=== PATIENT | male | born 1940 | race Caucasian/White ===

== ENCOUNTER 2017-02-20 09:14 | Inpatient (IN) | payer MEDICARE, OTHER ==
[2017-02-20 09:19] VITALS: BMI 25.4
[2017-02-20] MEDS ORDERED: Sodium Chloride 0.9% 1,000 ML IV STA (09:46)
[2017-02-20] MEDS ORDERED: Sodium Chloride 0.9% 1,000 ML ONE (10:00)
[2017-02-20 10:14] LABS: BASO # 0.1 K/uL (0.0-0.2); BASO % 1.5 % (0.0-2.0); EOS % 0.3 % (0.0-4.0); HEMATOCRIT 47.7 % (35.0-51.0); LYMPH # 0.6 K/uL (1.0-4.3); LYMPH % 8.4 % (20.0-40.0); MEAN CELL VOLUME 93.3 fL (80.0-94.0); MEAN CORPUSCULAR HEMOGLOBIN 32.1 pg (27.0-31.0); MEAN CORPUSCULAR HGB CONC 34.4 g/dL (33.0-37.0); MEAN PLATELET VOLUME 10.2 fL (7.2-11.7); MONO # 1.5 K/uL (0.0-0.8); MONO % 19.8 % (0.0-10.0); PLATELET COUNT 178 K/uL (130-400); RED CELL DISTRIBUTION WIDTH 14.2 % (11.5-14.5); WHITE BLOOD COUNT 7.5 K/uL (4.8-10.8)
[2017-02-20 10:24] LABS: INR 1.1
[2017-02-20 10:57] LABS: EOSINOPHIL 1 % (0-4); NEUTROPHIL 56 % (50-75); TOTAL CELLS COUNTED 100
[2017-02-20 11:06] LABS: CHLORIDE 85 mmol/L (98-107); POTASSIUM 2.7 mmol/L (3.6-5.2); SODIUM 132 mmol/L (132-148)
[2017-02-20 11:08] LABS: GFR AFRICAN-AMERICAN 25
[2017-02-20 11:09] LABS: ALB/GLOB RATIO 1.3 (1.0-2.1); ALKALINE PHOSPHATASE 73 U/L (38-126); ALT/SGPT 40 U/L (21-72); AST/SGOT 49 U/L (17-59); BILIRUBIN,TOTAL 1.1 mg/dL (0.2-1.3); CALCIUM 8.9 mg/dl (8.6-10.4); CARBON DIOXIDE 30 mmol/L (22-30); GLUCOSE,RANDOM 145 mg/dL (75-110); TOTAL PROTEIN 7.7 g/dL (6.3-8.3)
[2017-02-20 11:41] LABS: RBC URINE 1 /hpf (0-3); URINE BILIRUBIN NEGATIVE (NEGATIVE); URINE BLOOD NEGATIVE (NEGATIVE); URINE COLOR Yellow (YELLOW); URINE GLUCOSE (UA) NORMAL (Normal); URINE KETONE TRACE mg/dL (NEGATIVE); URINE LEUKOCYTE ESTERASE NEG Leu/uL (Negative); URINE PROTEIN 1+ mg/dL (NEGATIVE); URINE UROBILINOGEN NORMAL mg/dL (0.2-1.0); WBC URINE 1 /hpf (0-5)
[2017-02-20] MEDS ORDERED: Potassium Chloride 20 mEq/15 ml LIQ UD PO STA (11:42)
[2017-02-20 11:47] LABS: BLOOD UREA NITROGEN 107 mg/dL (9-20)
[2017-02-20 11:55] LABS: URINE BACTERIA OCC (<OCC)
[2017-02-20] MEDS ORDERED: Potassium Chloride 20 mEq/15 ml LIQ UD ONE (11:55)
--- NOTE | 2017-02-20 12:22 | C.PDOC ---
History Of Present Illness 77-year-old male, PMHx includes Hypertension and Hypercholesterolemia, presents to the emergency department with complaints of vomiting, loss of appetite and abdominal pain that started a 5 days ago. Daughter reports patients last bowel movement was three days ago, and he is having intermittent non-bloody/non- bilious vomiting for the past five days. Denies fevers, chills, shortness of breath, chest pain, or any other associated symptoms. No other complaints at this time. PMD Kenyetta Cole MD. Time Seen by Provider: 02/20/17 09:30 Chief Complaint (Nursing): Abdominal Pain History Per: Patient History/Exam Limitations: no limitations Past Medical History Reviewed: Historical Data, Nursing Documentation, Vital Signs Vital Signs: Last Vital Signs Temp 98.2 F 02/20/17 16:19 Pulse 98 H 02/20/17 17:45 Resp 18 02/20/17 17:45 BP 131/83 02/20/17 17:45 Pulse Ox 100 02/20/17 17:45 - Medical History PMH: Fractures (LEFT UPPER LEG/HIP FRACTURE-FROM FALL OFF LADDER), HTN, Hypercholesterolemia Denies: Chronic Kidney Disease - [facility] Procedures CATARAC PHACOEMULS/ASPIR (01/02/15) INSERT LENS AT CATAR EXT (01/02/15) Family History: States: No Known Family Hx - Social History Hx Alcohol Use: No Hx Substance Use: No - Immunization History Hx Tetanus Toxoid Vaccination: No Hx Influenza Vaccination: Yes Hx Pneumococcal Vaccination: No Review Of Systems Except As Marked, All Systems Reviewed And Found Negative. Constitutional: Negative for: Fever, Chills Cardiovascular: Negative for: Chest Pain Respiratory: Negative for: Cough, Shortness of Breath Gastrointestinal: Positive for: Nausea, Vomiting, Abdominal Pain, Constipation Musculoskeletal: Negative for: Back Pain Skin: Negative for: Rash Neurological: Negative for: Weakness, Numbness, Headache, Dizziness Physical Exam - Physical Exam Appears: Toxic, No Acute Distress, Other (uncomfortable) Skin: Warm, Dry, Pale, No Rash Head: Atraumatic, Normacephalic Eye(s): bilateral: Normal Inspection, PERRL Nose: Normal Oral Mucosa: Moist Lips: Normal Appearing Neck: Normal ROM Cardiovascular: Rhythm Regular, No Murmur Respiratory: Normal Breath Sounds, No Accessory Muscle Use Gastrointestinal/Abdominal: Soft, No Tenderness Extremity: Normal ROM Neurological/Psych: Oriented x3, Normal Speech, Normal Cognition ED Course And Treatment - Laboratory Results Result Diagrams: 02/20/17 10:07 02/20/17 10:55 O2 Sat by Pulse Oximetry: 96 - Other Rad CXR X-Ray: Viewed By Me, Read By Radiologist Interpretation: Accession No. : [id number]. Patient Name / ID : LORENZA ESCALANTE / [id number]. Exam Date : 02/20/2017 09:49:55 ( Approved ). Study Comment : Sex / Age : M / 77Y. Creator : Artem Mcclain MD. Dictator : Artem Mcclain MD. Roofing Supervisor : Electric Meter Installer Helper : Artem Mcclain MD. Approver2 : Report Date : 02/20/2017 12:34:04. My Comment : . PROCEDURE: CHEST RADIOGRAPH, 1 VIEW. Technique: Single view portable semi erect @ 09: 50. HISTORY: vomiting. COMPARISON: 12/24/2014. FINDINGS: LUNGS: Clear. PLEURA: No pneumothorax or pleural fluid seen. CARDIOVASCULAR: No radiographic findings to suggest acute or significant cardiovascular disease. OSSEOUS STRUCTURES: No significant abnormalities. VISUALIZED UPPER ABDOMEN: Normal. OTHER FINDINGS: None. IMPRESSION: No active disease. No acute/ significant interval changes. - CT Scan/US Abdomen/pelvis CT Other Rad Studies (CT/US): Read By Radiologist, Radiology Report Reviewed CT/US Interpretation: Accession No. : [id number]. Patient Name / ID : LORENZA ESCALANTE / [id number]. Exam Date : 02/20/2017 16:06:17 ( Approved ). Study Comment : Sex / Age : M / 77Y. Creator : kathy melchor. Dictator : Haley Vasquez MD. Roofing Supervisor : Electric Meter Installer Helper : Haley Vasquez MD. Approver2 : Report Date : 02/20/2017 16:34:33. My Comment : . PROCEDURE: CT Abdomen and Pelvis with Oral contrast. HISTORY: abdominal pain. COMPARISON: None. TECHNIQUE: Contiguous axial images of the abdomen and pelvis. Oral contrast was administered. No IV contrast given. Coronal and Sagittal reformats generated. Radiation dose: Total exam DLP = 413.43 mGy-cm. This CT exam was performed using one or more of the following dose reduction techniques: Automated exposure control, adjustment of the mA and/or kV according to patient size, and/or use of iterative reconstruction technique. FINDINGS: LOWER THORAX: Trace left pleural effusion. Bibasilar 0 small opacities likely atelectasis. The heart is mildly enlarged. LIVER: Unremarkable. No gross lesion or ductal dilatation. GALLBLADDER AND BILE DUCTS : Unremarkable. PANCREAS: Unremarkable. No mass. No ductal dilatation. SPLEEN: Unremarkable. No splenomegaly. ADRENALS: Unremarkable. KIDNEYS AND URETERS: Unremarkable. No stone or hydronephrosis. BLADDER: The urinary bladder is mildly distended. REPRODUCTIVE: Unremarkable. APPENDIX: No evidence of appendicitis. BOWEL: Moderately to markedly distended stomach and moderately distended small bowel loops. The distal small bowel loops are collapsed in the large bowel are collapsed. Findings consistent with small bowel obstruction. The transitional point is likely at the right lower abdomen/ right pelvis. Diffuse colonic diverticulosis seen without evidence of diverticulitis. No evidence of intestinal pneumatosis. PERITONEUM: Unremarkable. No fluid collection. No free air. LYMPH NODES: Unremarkable. No enlarged lymph nodes. VASCULATURE: Unremarkable. No aortic aneurysm. BONES: No fracture or destructive lesion. Diffuse degenerative changes seen at the thoracic and lumbar spine. Patient status post internal fixation at the left hip. OTHER FINDINGS: None. IMPRESSION: Findings consistent with high-grade bowel obstruction. The transitional point is likely at the right lower abdomen / right pelvis. Colonic diverticulosis without evidence of diverticulitis. Trace left pleural effusion of uncertain etiology. Medical Decision Making Medical Decision Making: Case was d/w pt's PMD who ordered CT abdomen/pelvis and accepted patient to ICU. Disposition - Disposition Disposition: HOSPITALIZED Disposition Time: 12:20 Condition: FAIR - Clinical Impression Clinical Impression: Vomiting, Hypokalemia, Acute on chronic renal failure, Elevated troponin - Scribe Statement The provider has reviewed the documentation as recorded by the Scribe (Gee Taylor) All medical record entries made by the Scribe were at my direction and personally dictated by me. I have reviewed the chart and agree that the record accurately reflects my personal performance of the history, physical exam, medical decision making, and the department course for this patient. I have also personally directed, reviewed, and agree with the discharge instructions and disposition. Decision To Admit - Pt Status Changed To: Hospital Disposition Of: Inpatient - Admit Certification Admit to Inpatient:: After my assessment, the patient will require hospitalization for at least two midnights. This is because of the severity of symptoms shown, intensity of services needed, and/or the medical risk in this patient being treated as an outpatient. - InPatient: Physician Admission Certification:: patient will need more than 2 days of admission - . Bed Request Type: ICU Patient Diagnosis: Vomiting, Hypokalemia, Acute on chronic renal failure, Elevated troponin, Small bowel obstruction
--- NOTE | 2017-02-20 12:35 | RAD ---
PROCEDURE: CHEST RADIOGRAPH, 1 VIEW. Technique: Single view portable semi erect @ 09:50. HISTORY: vomiting COMPARISON: 12/24/2014 FINDINGS: LUNGS: Clear. PLEURA: No pneumothorax or pleural fluid seen. CARDIOVASCULAR: No radiographic findings to suggest acute or significant cardiovascular disease. OSSEOUS STRUCTURES: No significant abnormalities. VISUALIZED UPPER ABDOMEN: Normal. OTHER FINDINGS: None. IMPRESSION: No active disease. No acute/significant interval changes. Please note: No preliminary report/ innterpretation of this examination provided by emergency department personnel.
[2017-02-20] MEDS ORDERED: Iohexol 240 (50 ml) ONE (14:01)
--- NOTE | 2017-02-20 14:13 | US ---
PROCEDURE: Ultrasound of the Kidneys HISTORY: [facility] COMPARISON: None available. TECHNIQUE: Sonogram of the kidneys. FINDINGS: RIGHT KIDNEY: Measures: 8.7 x 4.6 x 4.8 cm. The right kidney is small in size demonstrates diffuse increased echogenicity. No stone, solid mass lesion or hydronephrosis visualized. There are 2 cyst seen at the right kidney with the largest cyst measures 0.8 x 0.7 x 0.9 centimeter. LEFT KIDNEY: Measures: 10.2 x 5 x 4.6 cm. There is also increased echogenicity of the left kidneys suggestive of medical renal disease. No stone, solid mass lesion or hydronephrosis visualized. There are 2 cysts seen at the left kidney with the largest cyst measures 2 by 2.03 x 1.2 centimeter. OTHER FINDINGS: None. IMPRESSION: Echogenic kidneys suggestive of medical renal disease. No evidence of hydronephrosis. Bilateral small cysts.
--- NOTE | 2017-02-20 15:32 | CP.PCM.HP ---
History of Present Illness - History of Present Illness History of Present Illness: Chief complaints: Abdominal pain, nausea, vomiting. History of present illness: 77-year-old male with a history of hypertension, chronic renal insufficiency, mild, proteinuria came to the emergency room with the sudden onset of abdominal pain. Patient started noticing pain for 6 days, initially patient thought some stomach virus, and the pain disappeared 2 days later, again he started having pain, and associated with multiple episodes of vomiting. Patient was not able to eat any food. 2 days. He is not eating anything, is becoming more weak, and also fatigue. He was also complained of decreased urine output. He did not have any bowel movements. After he came to the emergency room, his pain improved markedly. Again, now having increasing pain. Also associated with nausea. Patient did not have any has such history in the past. Patient in the past multiple times, refused a colonoscopy. Past medical history: Hypertension, hypercholesteremia, renal insufficiency, mild proteinuria. Allergies: No known drug allergies. Surgical history: Patient had open reduction internal fixation left femur in 2005. Cataract surgery in the past. Family history no cancer noted. Social history: Nonsmoker, nonalcoholic. Lives with the family. Review of systems: Currently, patient is feeling increasingly weak. Fatigue. Complaining of abdominal pain. Nausea, vomiting, no bowel movements. Urine output is decreasing. Vomiting multiple times. On examination: Patient is currently having diabetes mucosa, shrunken eyes. Chest bilateral good air entry. Regular heart sound. Abdomen mild tenderness epigastric area, bloated and painful and tender noted. Extremities no pedal edema. 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 Labs repeated. Elevated BUN/creatinine noted. Mild elevation of the troponin noted. Evidence of dehydration. Assessment and condition: 77-year-old male with history of renal insufficiency, hypertension and hypercholesterolemia. Patient's baseline creatinine is 1.3. Now admitted with acute renal failure likely secondary to severe dehydration. And associated with vomiting and abdominal pain, intra-abdominal pathology has to be ruled out. Renal sonogram is normal. We'll get a CT of the abdomen and pelvis. I dehydration. Renal evaluation. We'll continue to currently monitor and will follow the patient. Patient will need intensive care unit monitoring. Mild troponin elevation, secondary to renal insufficiency. Cardiac causes cannot be ruled out. I spoke to the patient, family, and will follow the patient Present on Admission - Present on Admission Any Indicators Present on Admission: No History of DVT/PE: No History of Uncontrolled Diabetes: No Urinary Catheter: No Past Patient History - Past Medical History & Family History Past Medical History?: Yes - Past Social History Smoking Status: Never Smoked - CARDIAC Hx Hypercholesterolemia: Yes Hx Hypertension: Yes - PULMONARY Hx Respiratory Disorders: No - NEUROLOGICAL Hx Neurological Disorder: No - HEENT Hx HEENT Problems: Yes Hx Cataracts: Yes (LEFT EYE CATARACT) - RENAL Hx Chronic Kidney Disease: No - ENDOCRINE/METABOLIC Hx Endocrine Disorders: No - HEMATOLOGICAL/ONCOLOGICAL Hx Blood Disorders: No - INTEGUMENTARY Hx Dermatological Problems: No - MUSCULOSKELETAL/RHEUMATOLOGICAL Hx Fractures: Yes (LEFT UPPER LEG/HIP FRACTURE-FROM FALL OFF LADDER) - GASTROINTESTINAL Hx Gastrointestinal Disorders: No - GENITOURINARY/GYNECOLOGICAL Hx Genitourinary Disorders: No - PSYCHIATRIC Hx Substance Use: No - SURGICAL HISTORY Hx Surgeries: Yes Hx Orthopedic Surgery: Yes (LEFT UPPERLEG/HIP FX. REPAIR) - ANESTHESIA Hx Anesthesia: Yes Hx Anesthesia Reactions: No Hx Malignant Hyperthermia: No Meds Allergies/Adverse Reactions: Allergies Allergy/AdvReac Type Severity Reaction Status Date / Time No Known Allergies Allergy Verified 02/20/17 09:18 Results - Vital Signs Recent Vital Signs: Last Vital Signs Temp 97.6 F 02/20/17 14:10 Pulse 94 H 02/20/17 15:20 Resp 18 02/20/17 15:20 BP 120/87 02/20/17 15:20 Pulse Ox 94 L 02/20/17 15:20 - Labs Result Diagrams: 02/20/17 10:07 02/20/17 10:55 Labs: Laboratory Results - last 24 hr 02/20/17 02/20/17 02/20/17 10:07 10:07 10:07 WBC 7.5 RBC 5.11 Hgb 16.4 D Hct 47.7 MCV 93.3 D MCH 32.1 H MCHC 34.4 RDW 14.2 Plt Count 178 MPV 10.2 Neut % (Auto) 70.0 Lymph % (Auto) 8.4 L [place] % (Auto) 19.8 H Eos % (Auto) 0.3 Baso % (Auto) 1.5 Neut # 5.3 Lymph # 0.6 L [place] # 1.5 H Eos # 0.0 Baso # 0.1 Neutrophils % (Manual) 56 Band Neutrophils % 7 H Lymphocytes % (Manual) 20 Monocytes % (Manual) 16 H Eosinophils % (Manual) 1 Platelet Estimate Normal RBC Morphology Normal PT 12.2 INR 1.1 APTT 23 Sodium Potassium Chloride Carbon Dioxide Anion Gap BUN Creatinine Est GFR ( Amer) Est GFR (Non-Af Amer) Random Glucose Lactic Acid 2.1 Calcium Total Bilirubin AST ALT Alkaline Phosphatase Total Creatine Kinase CK-MB (Mass) Troponin I, Quant Total Protein Albumin Globulin Albumin/Globulin Ratio Lipase Urine Color Urine Clarity Urine pH Ur Specific [place] Urine Protein Urine Glucose (UA) Urine Ketones Urine Blood Urine Nitrate Urine Bilirubin Urine Urobilinogen Ur Leukocyte Esterase Urine WBC (Auto) Urine RBC (Auto) Ur Squamous Epith Cells Urine Bacteria Serum Ketones 02/20/17 02/20/17 10:55 11:22 WBC RBC Hgb Hct MCV MCH MCHC RDW Plt Count MPV Neut % (Auto) Lymph % (Auto) [place] % (Auto) Eos % (Auto) Baso % (Auto) Neut # Lymph # [place] # Eos # Baso # Neutrophils % (Manual) Band Neutrophils % Lymphocytes % (Manual) Monocytes % (Manual) Eosinophils % (Manual) Platelet Estimate RBC Morphology PT INR APTT Sodium 132 Potassium 2.7 L Chloride 85 L Carbon Dioxide 30 Anion Gap 20 BUN 107 H* D Creatinine 3.0 H Est GFR ( Amer) 25 Est GFR (Non-Af Amer) 20 Random Glucose 145 H Lactic Acid Calcium 8.9 Total Bilirubin 1.1 AST 49 ALT 40 Alkaline Phosphatase 73 Total Creatine Kinase 161 CK-MB (Mass) 8.22 H Troponin I, Quant 0.2980 H* Total Protein 7.7 Albumin 4.3 Globulin 3.4 Albumin/Globulin Ratio 1.3 Lipase 482 H Urine Color Yellow Urine Clarity Clear Urine pH 5.0 Ur Specific [place] 1.018 Urine Protein 1+ H Urine Glucose (UA) Normal Urine Ketones Trace Urine Blood Negative Urine Nitrate Negative Urine Bilirubin Negative Urine Urobilinogen Normal Ur Leukocyte Esterase Neg Urine WBC (Auto) 1 Urine RBC (Auto) 1 Ur Squamous Epith Cells 1 Urine Bacteria Occ H Serum Ketones Negative
--- NOTE | 2017-02-20 16:02 | CP.PCM.CON ---
History of Present Illness - History of Present Illness History of Present Illness: Chief complaints: Abdominal pain, nausea, vomiting. History of present illness: 77-year-old male with a history of hypertension, chronic renal insufficiency, mild proteinuria hx came to the emergency room with the sudden onset of abdominal pain. Patient started noticing pain for 6 days, initially patient thought some stomach virus, and the pain disappeared 2 days later, again he started having pain, and associated with multiple episodes of vomiting. Patient was not able to eat any food. 2 days. He is not eating anything, is becoming more weak, and also fatigue. He was also complained of decreased urine output. He did not have any bowel movements. After he came to the emergency room, his pain improved markedly. Again, now having increasing pain. Also associated with nausea. Patient did not have any has such history in the past. Patient in the past multiple times, refused a colonoscopy. Past medical history: Hypertension, hypercholesteremia, renal insufficiency, mild proteinuria. Allergies: No known drug allergies. Surgical history: Patient had open reduction internal fixation left femur in 2005. Cataract surgery in the past. Family history no cancer noted. Social history: Nonsmoker, nonalcoholic. Lives with the family. Review of Systems - Constitutional Constitutional: Lethargy, Weakness - EENT Eyes: absent: As Per HPI, Blind Spots, Blurred Vision, Change in Vision, Decreased Night Vision, Diplopia, Discharge, Dry Eye, Exophthalmos, Floaters, Irritation, Itchy Eyes, Loss of Peripheral Vision, Pain, Photophobia, Requires Corrective Lenses, Sees Flashes, Spots in Vision, Tunnel Vision, Other Visual Disturbances, Loss of Vision, Other Ears: absent: As Per HPI, Decreased Hearing, Ear Discharge, Ear Pain, Tinnitus, Abnormal Hearing, Disequilibrium, Dizziness, Other Nose/Mouth/Throat: absent: As Per HPI, Epistaxis, Nasal Congestion, Nasal Discharge, Nasal Obstruction, Nasal Trauma, Nose Pain, Post Nasal Drip, Sinus Pain, Sinus Pressure, Bleeding Gums, Change in Voice, Dental Pain, Dry Mouth, Dysphagia, Halitosis, Hoarsness, Lip Swelling, Mouth Lesions, Mouth Pain, Odynophagia, Sore Throat, Throat Swelling, Tongue Swelling, Facial Pain, Neck Pain, Neck Mass, Other - Cardiovascular Cardiovascular: Lightheadedness - Respiratory Respiratory: absent: As Per HPI, Cough, Dyspnea, Hemoptysis, Dyspnea on Exertion , Wheezing, Snoring, Stridor, Pain on Inspiration, Chest Congestion, Excessive Mucous Production, Change in Mucous Color, Pain with Coughing, Other - Gastrointestinal Gastrointestinal: Nausea, Vomiting - Genitourinary Genitourinary: Voiding Freq/Small Amts - Musculoskeletal Musculoskeletal: Myalgias - Integumentary Integumentary: absent: As Per HPI, Acne, Alopecia, Bleeding Lesions, Change in Hair, Change in Nails, Change in Pigmentation, Changing Lesions, Dry Skin, Erythema, Furuncle, Hirsutism, Lesions, New Lesions, Non-Healing Lesions, Photosensitivity, Pruritus, Rash, Skin Pain, Skin Ulcer, Sores, Striae, Swelling , Unusual Bruising, Wounds, Jaundice, Other - Neurological Neurological: absent: As Per HPI, Abnormal Gait, Abnormal Hearing, Abnormal Movements, Abnormal Speech, Behavioral Changes, Burning Sensations, Confusion, Convulsions, Disequilibrium, Dizziness, Numbness, Focal Weakness, Frequent Falls , Headaches, Lack of Coordination, Loss of Vision, Memory Loss, Paresthesias, Radicular Pain, Restless Legs, Sensory Deficit, Syncope, Tingling, Tremor, Vertigo, Weakness, Other Visual Disturbances, Other Past Patient History - Past Medical History & Family History Past Medical History?: Yes Past Family History: Reviewed and not pertinent - Past Social History Smoking Status: Never Smoked Chewing Tobacco Use: No Cigar Use: No Alcohol: None - CARDIAC Hx Hypercholesterolemia: Yes Hx Hypertension: Yes - PULMONARY Hx Respiratory Disorders: No - NEUROLOGICAL Hx Neurological Disorder: No - HEENT Hx HEENT Problems: Yes Hx Cataracts: Yes (LEFT EYE CATARACT) - RENAL Hx Chronic Kidney Disease: No - ENDOCRINE/METABOLIC Hx Endocrine Disorders: No - HEMATOLOGICAL/ONCOLOGICAL Hx Blood Disorders: No - INTEGUMENTARY Hx Dermatological Problems: No - MUSCULOSKELETAL/RHEUMATOLOGICAL Hx Fractures: Yes (LEFT UPPER LEG/HIP FRACTURE-FROM FALL OFF LADDER) - GASTROINTESTINAL Hx Gastrointestinal Disorders: No - GENITOURINARY/GYNECOLOGICAL Hx Genitourinary Disorders: No - PSYCHIATRIC Hx Substance Use: No - SURGICAL HISTORY Hx Surgeries: Yes Hx Orthopedic Surgery: Yes (LEFT UPPERLEG/HIP FX. REPAIR) - ANESTHESIA Hx Anesthesia: Yes Hx Anesthesia Reactions: No Hx Malignant Hyperthermia: No Meds Allergies/Adverse Reactions: Allergies Allergy/AdvReac Type Severity Reaction Status Date / Time No Known Allergies Allergy Verified 02/20/17 09:18 - Medications Medications: Current Medications Heparin Sodium (Porcine) (Heparin) 5,000 units SC Q12 [facility] Potassium Chloride 40 meq/ (Sodium Chloride) 1,020 mls @ 125 mls/hr IV .Q8H10M [facility] Last Admin: 02/20/17 12:34 Dose: Not Given Potassium Chloride (Potassium Chloride 10 Meq/100 Ml) 10 meq in 100 mls @ 100 mls/hr IVPB Q2 [facility] Stop: 02/20/17 20:59 Last Admin: 02/20/17 15:47 Dose: 100 mls/hr Morphine Sulfate (Morphine) 2 mg IVP Q6 PRN PRN Reason: Pain, moderate (4-7) Pantoprazole Sodium (Protonix Inj) 40 mg IVP DAILY [facility] Physical Exam - Constitutional Appears: In Acute Distress, Chronically Ill - Head Exam Head Exam: ATRAUMATIC, NORMAL INSPECTION - Eye Exam Eye Exam: EOMI, Normal appearance - Neck Exam Neck exam: Positive for: Normal Inspection. Negative for: Tenderness - Respiratory Exam Respiratory Exam: Clear to Auscultation Bilateral, NORMAL BREATHING PATTERN - Cardiovascular Exam Cardiovascular Exam: REGULAR RHYTHM, +S1 - GI/Abdominal Exam GI & Abdominal Exam: Soft, Tenderness - Extremities Exam Extremities exam: Positive for: normal inspection. Negative for: tenderness - Neurological Exam Neurological exam: Alert, CN II-XII Intact - Skin Skin Exam: Dry, Warm Results - Vital Signs Recent Vital Signs: Last Vital Signs Temp 97.6 F 02/20/17 14:10 Pulse 94 H 02/20/17 15:20 Resp 18 02/20/17 15:20 BP 120/87 02/20/17 15:20 Pulse Ox 94 L 02/20/17 15:20 - Labs Result Diagrams: 02/20/17 10:07 02/20/17 10:55 Labs: Laboratory Results - last 24 hr 02/20/17 02/20/17 02/20/17 10:07 10:07 10:07 WBC 7.5 RBC 5.11 Hgb 16.4 D Hct 47.7 MCV 93.3 D MCH 32.1 H MCHC 34.4 RDW 14.2 Plt Count 178 MPV 10.2 Neut % (Auto) 70.0 Lymph % (Auto) 8.4 L [place] % (Auto) 19.8 H Eos % (Auto) 0.3 Baso % (Auto) 1.5 Neut # 5.3 Lymph # 0.6 L [place] # 1.5 H Eos # 0.0 Baso # 0.1 Neutrophils % (Manual) 56 Band Neutrophils % 7 H Lymphocytes % (Manual) 20 Monocytes % (Manual) 16 H Eosinophils % (Manual) 1 Platelet Estimate Normal RBC Morphology Normal PT 12.2 INR 1.1 APTT 23 Sodium Potassium Chloride Carbon Dioxide Anion Gap BUN Creatinine Est GFR ( Amer) Est GFR (Non-Af Amer) Random Glucose Lactic Acid 2.1 Calcium Total Bilirubin AST ALT Alkaline Phosphatase Total Creatine Kinase CK-MB (Mass) Troponin I, Quant Total Protein Albumin Globulin Albumin/Globulin Ratio Lipase Urine Color Urine Clarity Urine pH Ur Specific [place] Urine Protein Urine Glucose (UA) Urine Ketones Urine Blood Urine Nitrate Urine Bilirubin Urine Urobilinogen Ur Leukocyte Esterase Urine WBC (Auto) Urine RBC (Auto) Ur Squamous Epith Cells Urine Bacteria Serum Ketones 02/20/17 02/20/17 10:55 11:22 WBC RBC Hgb Hct MCV MCH MCHC RDW Plt Count MPV Neut % (Auto) Lymph % (Auto) [place] % (Auto) Eos % (Auto) Baso % (Auto) Neut # Lymph # [place] # Eos # Baso # Neutrophils % (Manual) Band Neutrophils % Lymphocytes % (Manual) Monocytes % (Manual) Eosinophils % (Manual) Platelet Estimate RBC Morphology PT INR APTT Sodium 132 Potassium 2.7 L Chloride 85 L Carbon Dioxide 30 Anion Gap 20 BUN 107 H* D Creatinine 3.0 H Est GFR ( Amer) 25 Est GFR (Non-Af Amer) 20 Random Glucose 145 H Lactic Acid Calcium 8.9 Total Bilirubin 1.1 AST 49 ALT 40 Alkaline Phosphatase 73 Total Creatine Kinase 161 CK-MB (Mass) 8.22 H Troponin I, Quant 0.2980 H* Total Protein 7.7 Albumin 4.3 Globulin 3.4 Albumin/Globulin Ratio 1.3 Lipase 482 H Urine Color Yellow Urine Clarity Clear Urine pH 5.0 Ur Specific [place] 1.018 Urine Protein 1+ H Urine Glucose (UA) Normal Urine Ketones Trace Urine Blood Negative Urine Nitrate Negative Urine Bilirubin Negative Urine Urobilinogen Normal Ur Leukocyte Esterase Neg Urine WBC (Auto) 1 Urine RBC (Auto) 1 Ur Squamous Epith Cells 1 Urine Bacteria Occ H Serum Ketones Negative Assessment & Plan (1) JAVIER (acute kidney injury) Status: Acute (2) Acute on chronic renal failure Status: Acute (3) Elevated troponin Status: Acute (4) Hypokalemia Status: Acute - Assessment and Plan (Free Text) Plan: Agree with fluid rehydration renal US Replete K check mag level check for proteinuria
--- NOTE | 2017-02-20 17:19 | CT ---
PROCEDURE: CT Abdomen and Pelvis with Oral contrast. HISTORY: abdominal pain COMPARISON: None. TECHNIQUE: Contiguous axial images of the abdomen and pelvis. Oral contrast was administered. No IV contrast given. Coronal and Sagittal reformats generated. Radiation dose: Total exam DLP = 413.43 mGy-cm. This CT exam was performed using one or more of the following dose reduction techniques: Automated exposure control, adjustment of the mA and/or kV according to patient size, and/or use of iterative reconstruction technique. FINDINGS: LOWER THORAX: Trace left pleural effusion. Bibasilar 0 small opacities likely atelectasis. The heart is mildly enlarged. LIVER: Unremarkable. No gross lesion or ductal dilatation. GALLBLADDER AND BILE DUCTS: Unremarkable. PANCREAS: Unremarkable. No mass. No ductal dilatation. SPLEEN: Unremarkable. No splenomegaly. ADRENALS: Unremarkable. KIDNEYS AND URETERS: Unremarkable. No stone or hydronephrosis. BLADDER: The urinary bladder is mildly distended. REPRODUCTIVE: Unremarkable. APPENDIX: No evidence of appendicitis. BOWEL: Moderately to markedly distended stomach and moderately distended small bowel loops. The distal small bowel loops are collapsed in the large bowel are collapsed. Findings consistent with small bowel obstruction. The transitional point is likely at the right lower abdomen/ right pelvis. Diffuse colonic diverticulosis seen without evidence of diverticulitis. No evidence of intestinal pneumatosis PERITONEUM: Unremarkable. No fluid collection. No free air. LYMPH NODES: Unremarkable. No enlarged lymph nodes. VASCULATURE: Unremarkable. No aortic aneurysm. BONES: No fracture or destructive lesion. Diffuse degenerative changes seen at the thoracic and lumbar spine. Patient status post internal fixation at the left hip. OTHER FINDINGS: None. IMPRESSION: Findings consistent with high-grade bowel obstruction. The transitional point is likely at the right lower abdomen/ right pelvis. Colonic diverticulosis without evidence of diverticulitis. Trace left pleural effusion of uncertain etiology.
[2017-02-20 18:40] LABS: POTASSIUM 3.4 mmol/L (3.6-5.2)
[2017-02-20 18:42] LABS: ALB/GLOB RATIO 1.1 (1.0-2.1); BILIRUBIN,TOTAL 0.8 mg/dL (0.2-1.3); TOTAL PROTEIN 7.3 g/dL (6.3-8.3)
[2017-02-20 18:43] LABS: CALCIUM 8.5 mg/dl (8.6-10.4); PHOSPHOROUS 3.4 mg/dL (2.5-4.5)
[2017-02-20 19:53] LABS: BASO # 0.1 K/uL (0.0-0.2); BASO % 1.6 % (0.0-2.0); EOS % 0.1 % (0.0-4.0); HEMATOCRIT 43.6 % (35.0-51.0); LYMPH # 0.3 K/uL (1.0-4.3); MEAN CELL VOLUME 93.9 fL (80.0-94.0); MEAN CORPUSCULAR HEMOGLOBIN 31.7 pg (27.0-31.0); MEAN CORPUSCULAR HGB CONC 33.7 g/dL (33.0-37.0); MEAN PLATELET VOLUME 10.6 fL (7.2-11.7); MONO # 1.3 K/uL (0.0-0.8); NRBC % 0.1 % (0.0-2.0); PLATELET COUNT 145 K/uL (130-400); RED CELL DISTRIBUTION WIDTH 14.1 % (11.5-14.5); WHITE BLOOD COUNT 7.8 K/uL (4.8-10.8)
--- NOTE | 2017-02-20 20:19 | CP.PCM.CON ---
History of Present Illness - History of Present Illness History of Present Illness: General Surgery Consult note for Dr. Barrera Consulted for: SBO Patient is a 77 y/o Male with PMH pertinent for right inguinal hernia for several years, and no abdominal past surgical history who presented to the ED for 6 days of abdominal pain. Patient thought the pain was due to a virus and it got better on Tuesday, but returned on and worsened until he came to the ER today. Patient states that pain is diffuse, associated with abdominal distention, but denies nausea, vomiting, fevers, chest pain, or SOB. Patient states that he hasn't been able to eat anything for 2 days due to pain. Patient states he hasn't had a bowel movement or passed gas since the onset of symptoms but normally he is very regular. Denies any history of hematochezia, diarrhea, or melena. Patient has never had a previous episode. States that he has had a bulge in his right groin for several years that he gives him pain when he walks , but reduces when he lies down. Denies any recent worsening in hernia symptoms or incarceration. States he has had very low UOP recently but denies any dysuria or hematuria NGT was placed by primary and was approximated to have 4L of initial gastric output between emesis and NGT drainage PMH: HTN, HLD, CKD PSH: ORIF of left femur, cataracts ALL: NKDA Social: denies tobacco, ETOH, and drugs. Lives at home with family, maintains normal ADL Review of Systems - Review of Systems All systems: reviewed and no additional remarkable complaints except (as per HPI ) - Constitutional Constitutional: Anorexia. absent: Chills, Fever - Cardiovascular Cardiovascular: absent: Chest Pain, Chest Pain at Rest, Dyspnea, Pedal Edema - Respiratory Respiratory: absent: Cough, Dyspnea, Dyspnea on Exertion - Gastrointestinal Gastrointestinal: As Per HPI, Abdominal Pain, Bloating. absent: Constipation, Diarrhea, Hematochezia, Loose Stools, Melena, Nausea, Vomiting - Genitourinary Genitourinary: Nocturia (1x/night). absent: Difficulty Urinating, Dysuria, Hematuria - Musculoskeletal Musculoskeletal: absent: Back Pain, Numbness, Tingling - Neurological Neurological: absent: Numbness, Tingling - Endocrine Endocrine: absent: Polyuria Past Patient History - Past Medical History & Family History Past Medical History?: Yes - Past Social History Smoking Status: Never Smoked Chewing Tobacco Use: No Cigar Use: No Alcohol: None - CARDIAC Hx Hypercholesterolemia: Yes Hx Hypertension: Yes - PULMONARY Hx Respiratory Disorders: No - NEUROLOGICAL Hx Neurological Disorder: No - HEENT Hx HEENT Problems: Yes Hx Cataracts: Yes (LEFT EYE CATARACT) - RENAL Hx Chronic Kidney Disease: No - ENDOCRINE/METABOLIC Hx Endocrine Disorders: No - HEMATOLOGICAL/ONCOLOGICAL Hx Blood Disorders: No - INTEGUMENTARY Hx Dermatological Problems: No - MUSCULOSKELETAL/RHEUMATOLOGICAL Hx Fractures: Yes (LEFT UPPER LEG/HIP FRACTURE-FROM FALL OFF LADDER) - GASTROINTESTINAL Hx Gastrointestinal Disorders: Yes Other/Comment: right inguinal hernia - GENITOURINARY/GYNECOLOGICAL Hx Genitourinary Disorders: No - PSYCHIATRIC Hx Substance Use: No - SURGICAL HISTORY Hx Surgeries: Yes Hx Orthopedic Surgery: Yes (LEFT UPPERLEG/HIP FX. REPAIR) - ANESTHESIA Hx Anesthesia: Yes Hx Anesthesia Reactions: No Hx Malignant Hyperthermia: No Meds Allergies/Adverse Reactions: Allergies Allergy/AdvReac Type Severity Reaction Status Date / Time No Known Allergies Allergy Verified 02/20/17 09:18 - Medications Medications: Current Medications Heparin Sodium (Porcine) (Heparin) 5,000 units SC Q12 [facility] Potassium Chloride (Potassium Chloride 10 Meq/100 Ml) 10 meq in 100 mls @ 100 mls/hr IVPB Q2 [facility] Stop: 02/20/17 20:59 Last Admin: 02/20/17 19:45 Dose: 100 mls/hr Potassium Chloride 40 meq/ (Sodium Chloride) 1,020 mls @ 150 mls/hr IV .Q6H48M [facility] Morphine Sulfate (Morphine) 2 mg IVP Q6 PRN PRN Reason: Pain, moderate (4-7) Ondansetron HCl (Zofran Inj) 4 mg IVP Q4H PRN PRN Reason: Nausea/Vomiting Pantoprazole Sodium (Protonix Inj) 40 mg IVP DAILY [facility] Physical Exam - Constitutional Appears: Non-toxic, No Acute Distress - Head Exam Head Exam: ATRAUMATIC, NORMOCEPHALIC - Eye Exam Eye Exam: Normal appearance. absent: Conjunctival injection, Scleral icterus Additional comments: NGT in placed - ENT Exam ENT Exam: Mucous Membranes Dry, Normal Oropharynx - Respiratory Exam Respiratory Exam: NORMAL BREATHING PATTERN. absent: Accessory Muscle Use, Respiratory Distress - Cardiovascular Exam Cardiovascular Exam: RRR - GI/Abdominal Exam GI & Abdominal Exam: Soft, Tenderness (mild tenderness in the RLQ). absent: Distended, Rebound, Rigid - Exam Exam: absent: Scrotal Swelling, Testicular Tenderness - Expanded Exam Expanded exam: inguinal hernia: Right (reducible, non-tender) - Extremities Exam Extremities exam: Positive for: pedal pulses present. Negative for: calf tenderness, pedal edema - Back Exam Back exam: absent: CVA tenderness (L), CVA tenderness (R), rash noted - Neurological Exam Neurological exam: Alert, Oriented x3 - Psychiatric Exam Psychiatric exam: Normal Affect, Normal Mood - Skin Skin Exam: Dry, Intact, Normal Color, Warm Results - Vital Signs Recent Vital Signs: Last Vital Signs Temp 99.2 F 02/20/17 20:15 Pulse 105 H 02/20/17 20:00 Resp 23 02/20/17 20:00 BP 147/81 02/20/17 19:42 Pulse Ox 96 02/20/17 20:00 - Labs Result Diagrams: 02/20/17 19:23 02/20/17 18:12 Labs: Laboratory Results - last 24 hr 02/20/17 02/20/17 02/20/17 10:07 10:07 10:07 WBC 7.5 RBC 5.11 Hgb 16.4 D Hct 47.7 MCV 93.3 D MCH 32.1 H MCHC 34.4 RDW 14.2 Plt Count 178 MPV 10.2 Neut % (Auto) 70.0 Lymph % (Auto) 8.4 L [place] % (Auto) 19.8 H Eos % (Auto) 0.3 Baso % (Auto) 1.5 Neut # 5.3 Lymph # 0.6 L [place] # 1.5 H Eos # 0.0 Baso # 0.1 Neutrophils % (Manual) 56 Band Neutrophils % 7 H Lymphocytes % (Manual) 20 Monocytes % (Manual) 16 H Eosinophils % (Manual) 1 Platelet Estimate Normal RBC Morphology Normal PT 12.2 INR 1.1 APTT 23 Sodium Potassium Chloride Carbon Dioxide Anion Gap BUN Creatinine Est GFR ( Amer) Est GFR (Non-Af Amer) Random Glucose Lactic Acid 2.1 Calcium Phosphorus Magnesium Total Bilirubin AST ALT Alkaline Phosphatase Total Creatine Kinase CK-MB (Mass) Troponin I, Quant Total Protein Albumin Globulin Albumin/Globulin Ratio Lipase Urine Color Urine Clarity Urine pH Ur Specific [place] Urine Protein Urine Glucose (UA) Urine Ketones Urine Blood Urine Nitrate Urine Bilirubin Urine Urobilinogen Ur Leukocyte Esterase Urine WBC (Auto) Urine RBC (Auto) Ur Squamous Epith Cells Urine Bacteria Serum Ketones 02/20/17 02/20/17 02/20/17 10:55 11:22 18:12 WBC RBC Hgb Hct MCV MCH MCHC RDW Plt Count MPV Neut % (Auto) Lymph % (Auto) [place] % (Auto) Eos % (Auto) Baso % (Auto) Neut # Lymph # [place] # Eos # Baso # Neutrophils % (Manual) Band Neutrophils % Lymphocytes % (Manual) Monocytes % (Manual) Eosinophils % (Manual) Platelet Estimate RBC Morphology PT INR APTT Sodium 132 133 Potassium 2.7 L 3.4 L Chloride 85 L 94 L Carbon Dioxide 30 27 Anion Gap 20 15 BUN 107 H* D 94 H Creatinine 3.0 H 2.5 H Est GFR ( Amer) 25 30 Est GFR (Non-Af Amer) 20 25 Random Glucose 145 H 126 H Lactic Acid Calcium 8.9 8.5 L Phosphorus 3.4 Magnesium 2.0 Total Bilirubin 1.1 0.8 AST 49 44 ALT 40 42 Alkaline Phosphatase 73 69 Total Creatine Kinase 161 CK-MB (Mass) 8.22 H Troponin I, Quant 0.2980 H* Total Protein 7.7 7.3 Albumin 4.3 3.7 Globulin 3.4 3.5 Albumin/Globulin Ratio 1.3 1.1 Lipase 482 H Urine Color Yellow Urine Clarity Clear Urine pH 5.0 Ur Specific [place] 1.018 Urine Protein 1+ H Urine Glucose (UA) Normal Urine Ketones Trace Urine Blood Negative Urine Nitrate Negative Urine Bilirubin Negative Urine Urobilinogen Normal Ur Leukocyte Esterase Neg Urine WBC (Auto) 1 Urine RBC (Auto) 1 Ur Squamous Epith Cells 1 Urine Bacteria Occ H Serum Ketones Negative 02/20/17 19:23 WBC 7.8 RBC 4.64 Hgb 14.7 Hct 43.6 MCV 93.9 MCH 31.7 H MCHC 33.7 RDW 14.1 Plt Count 145 MPV 10.6 Neut % (Auto) 77.3 H Lymph % (Auto) 4.0 L [place] % (Auto) 17.0 H Eos % (Auto) 0.1 Baso % (Auto) 1.6 Neut # 6.0 Lymph # 0.3 L [place] # 1.3 H Eos # 0.0 Baso # 0.1 Neutrophils % (Manual) Band Neutrophils % Lymphocytes % (Manual) Monocytes % (Manual) Eosinophils % (Manual) Platelet Estimate RBC Morphology PT INR APTT Sodium Potassium Chloride Carbon Dioxide Anion Gap BUN Creatinine Est GFR ( Amer) Est GFR (Non-Af Amer) Random Glucose Lactic Acid Calcium Phosphorus Magnesium Total Bilirubin AST ALT Alkaline Phosphatase Total Creatine Kinase CK-MB (Mass) Troponin I, Quant Total Protein Albumin Globulin Albumin/Globulin Ratio Lipase Urine Color Urine Clarity Urine pH Ur Specific [place] Urine Protein Urine Glucose (UA) Urine Ketones Urine Blood Urine Nitrate Urine Bilirubin Urine Urobilinogen Ur Leukocyte Esterase Urine WBC (Auto) Urine RBC (Auto) Ur Squamous Epith Cells Urine Bacteria Serum Ketones - Imaging and Cardiology CT scan - abdomen Status: Image reviewed by me, Report reviewed by me Additional comment: Severe gastric distention high grade SBO with transition point in the RLQ with distal decompression of the Small and large bowel, no free air or pneumotosis intestinalis, right inguinal hernia without bowel contents Assessment & Plan - Assessment and Plan (Free Text) Assessment: 77M with SBO Plan: -No indication for emergent surgical intervention. Patient is now soft, non- distended, and non-tender. Massively decompressed through the NGT. WBC wnl, Lactic acid wnl, normal anion gap. CT showed no sign of bowel perforation or necrosis -continue to trend CMP and CBC -Upright AXR two view in AM -Strict intake and output -Keep patient NPO -Continue NGT to continuous low suction, perform proper NGT care -Insert indwelling beck if unable to maintain adequate UOP or monitor strictly -Continue aggressive IV hydration -IV antibiotics: Ancef 1gm Q12, Flagyl 750mg Q6 -PRN pain and nausea medication -Encourage ambulation, Incentive spirometer use Discussed with Dr. Bruce Rashid, PGY2
[2017-02-20 20:37] LABS: NEUTROPHIL 74 % (50-75); TOTAL CELLS COUNTED 100
[2017-02-20 20:38] LABS: LARGE PLATELETS PRESENT
[2017-02-20] MEDS: Lactated Ringer's 1,000 ML IV SCH (21:45)
[2017-02-20] MEDS ORDERED: METRONIDAZOLE IVPB SCH (22:00)
[2017-02-20] MEDS: metroNIDAZOLE IV 500 mg/100 ml 500 MG/100 ML BAG IVPB SCH (22:51)
[2017-02-21 03:06] LABS: RBC URINE < 1 /hpf (0-3); URINE BILIRUBIN NEGATIVE (NEGATIVE); URINE BLOOD NEGATIVE (NEGATIVE); URINE COLOR Yellow (YELLOW); URINE GLUCOSE (UA) NORMAL (Normal); URINE KETONE TRACE mg/dL (NEGATIVE); URINE LEUKOCYTE ESTERASE NEG Leu/uL (Negative); URINE PROTEIN 1+ mg/dL (NEGATIVE); URINE UROBILINOGEN NORMAL mg/dL (0.2-1.0); WBC URINE 1 /hpf (0-5)
[2017-02-21] MEDS: metroNIDAZOLE IV 500 mg/100 ml 500 MG/100 ML BAG IVPB SCH (03:53)
[2017-02-21 06:18] LABS: BASO % 0.1 % (0.0-2.0); HEMATOCRIT 45.6 % (35.0-51.0); LYMPH # 0.2 K/uL (1.0-4.3); LYMPH % 5.3 % (20.0-40.0); MEAN CELL VOLUME 94.3 fL (80.0-94.0); MEAN CORPUSCULAR HEMOGLOBIN 32.4 pg (27.0-31.0); MEAN CORPUSCULAR HGB CONC 34.3 g/dL (33.0-37.0); MEAN PLATELET VOLUME 10.2 fL (7.2-11.7); MONO # 0.4 K/uL (0.0-0.8); MONO % 9.3 % (0.0-10.0); NRBC % 0.1 % (0.0-2.0); PLATELET COUNT 119 K/uL (130-400); RED CELL DISTRIBUTION WIDTH 14.1 % (11.5-14.5); WHITE BLOOD COUNT 4.5 K/uL (4.8-10.8)
[2017-02-21 06:34] LABS: POTASSIUM 3.4 mmol/L (3.6-5.2)
[2017-02-21 06:37] LABS: CALCIUM 8.8 mg/dl (8.6-10.4); TOTAL PROTEIN 6.4 g/dL (6.3-8.3)
[2017-02-21] MEDS: Lactated Ringer's 1,000 ML IV SCH ×3 (07:00→17:36)
[2017-02-21 07:40] LABS: MAGNESIUM 1.9 mg/dL (1.6-2.3); PHOSPHOROUS 3.2 mg/dL (2.5-4.5)
--- NOTE | 2017-02-21 08:32 | CP.PCM.PN ---
Subjective - Date & Time of Evaluation Date of Evaluation: 02/21/17 Time of Evaluation: 08:30 - Subjective Subjective: Patient today is more comfortable. No abdominal pain. Significant NG tube drainage noted. BUN/creatinine is improving. No nausea, no vomiting at this time. Spoke to the surgeon today. I also spoke to the patient and family On examination: Vital signs stable. Chest good air entry bilaterally regular heart sounds nontender abdomen edema negative Labs reviewed in Improvement in the BUN/creatinine slowly noted Still having NG tube Assessment/recommendation 77-year-old male admitted with the possible intestinal obstruction. Significant NG tube drainage. Hypertension renal insufficiency acute. Continued IV hydration and renal follow-up surgical evaluation follow-up Continue the DVT and GI prophylaxis and will follow the patient Objective - Vital Signs/Intake and Output Vital Signs (last 24 hours): Temp Pulse Resp BP Pulse Ox 99.5 F 97 H 22 112/76 94 L 02/21/17 00:00 02/21/17 06:10 02/21/17 06:10 02/21/17 05:42 02/21/17 06:10 Intake and Output: 02/21/17 02/21/17 06:59 18:59 Intake Total 1250 Output Total 4250 Balance -3000 - Medications Medications: Current Medications Heparin Sodium (Porcine) (Heparin) 5,000 units SC Q12 [facility] Last Admin: 02/20/17 22:51 Dose: 5,000 units Lactated Ringer's (Lactated Ringer's) 1,000 mls @ 100 mls/hr IV .Q10H [facility] Last Admin: 02/20/17 21:45 Dose: 100 mls/hr Cefazolin Sodium 1,000 mg/ (Sodium Chloride) 100 mls @ 200 mls/hr IVPB Q12[facility] Last Admin: 02/21/17 00:01 Dose: 200 mls/hr Metronidazole (Flagyl) 500 mg in 100 mls @ 100 mls/hr IVPB Q6H [facility] Last Admin: 02/21/17 03:53 Dose: 100 mls/hr Morphine Sulfate (Morphine) 2 mg IVP Q6 PRN PRN Reason: Pain, moderate (4-7) Ondansetron HCl (Zofran Inj) 4 mg IVP Q4H PRN PRN Reason: Nausea/Vomiting Last Admin: 02/20/17 21:10 Dose: 4 mg Pantoprazole Sodium (Protonix Inj) 40 mg IVP DAILY [facility] - Labs Labs: 02/21/17 06:09 02/21/17 06:10 PT 12.2 SECONDS (9.7-12.2) 02/20/17 10:07 INR 1.1 02/20/17 10:07 APTT 23 SECONDS (21-34) 02/20/17 10:07
[2017-02-21 08:36] LABS: REACTIVE LYMPHOCYTES 1 % (0-0); TOTAL CELLS COUNTED 100
[2017-02-21 08:43] LABS: METAMYELOCYTE 4 % (0-0); MYELOCYTE 2 % (0-0); NEUTROPHIL 29 % (50-75)
[2017-02-21 08:48] LABS: LARGE PLATELETS PRESENT
--- NOTE | 2017-02-21 09:37 | CP.PCM.PN ---
Subjective - Date & Time of Evaluation Date of Evaluation: 02/21/17 Time of Evaluation: 07:00 - Subjective Subjective: General Surgery Dr. Barrera Pt S&E @bedside. NAEO. NGT placed yesterday, 3100 out since placement. Pt feels better. decreased distension, N/V, abd pain. Objective - Vital Signs/Intake and Output Vital Signs (last 24 hours): Temp Pulse Resp BP Pulse Ox 98.4 F 93 H 17 111/67 96 02/21/17 08:00 02/21/17 08:50 02/21/17 08:50 02/21/17 08:42 02/21/17 08:50 Intake and Output: 02/21/17 02/21/17 06:59 18:59 Intake Total 1250 200 Output Total 4250 Balance -3000 200 - Medications Medications: Current Medications Heparin Sodium (Porcine) (Heparin) 5,000 units SC Q12 [facility] Last Admin: 02/20/17 22:51 Dose: 5,000 units Lactated Ringer's (Lactated Ringer's) 1,000 mls @ 100 mls/hr IV .Q10H [facility] Last Admin: 02/21/17 07:00 Dose: Not Given Cefazolin Sodium 1,000 mg/ (Sodium Chloride) 100 mls @ 200 mls/hr IVPB Q12H [facility] Last Admin: 02/21/17 00:01 Dose: 200 mls/hr Metronidazole 250 mg/ (Miscellaneous) 50 mls @ 100 mls/hr IVPB Q8 [facility] Morphine Sulfate (Morphine) 2 mg IVP Q6 PRN PRN Reason: Pain, moderate (4-7) Ondansetron HCl (Zofran Inj) 4 mg IVP Q4H PRN PRN Reason: Nausea/Vomiting Last Admin: 02/20/17 21:10 Dose: 4 mg Pantoprazole Sodium (Protonix Inj) 40 mg IVP DAILY [facility] - Labs Labs: 02/21/17 06:09 02/21/17 06:10 PT 12.2 SECONDS (9.7-12.2) 02/20/17 10:07 INR 1.1 02/20/17 10:07 APTT 23 SECONDS (21-34) 02/20/17 10:07 - Constitutional Appears: Non-toxic, No Acute Distress - Head Exam Head Exam: NORMAL INSPECTION - Eye Exam Eye Exam: Normal appearance - ENT Exam ENT Exam: Mucous Membranes Moist - Respiratory Exam Respiratory Exam: NORMAL BREATHING PATTERN. absent: Accessory Muscle Use, Respiratory Distress - Cardiovascular Exam Cardiovascular Exam: absent: Bradycardia, Tachycardia - GI/Abdominal Exam GI & Abdominal Exam: Soft. absent: Distended, Guarding, Tenderness, Rebound - Extremities Exam Extremities Exam: Normal Inspection - Neurological Exam Neurological Exam: Alert, Awake, Oriented x3 - Psychiatric Exam Psychiatric exam: Normal Affect, Normal Mood - Skin Skin Exam: Dry, Intact, Normal Color, Warm Assessment and Plan - Assessment and Plan (Free Text) Assessment: 77 y/o M w/ SBO w/ transition point in RLQ - monitor NGT output - NGT to LCS - cont pain management - hold anticoagulation - possible OR today for diagnostic laparoscopy Pt seen and discussed w/ Dr. Bruce Davila DO PGY2
--- NOTE | 2017-02-21 09:40 | RAD ---
HISTORY: SBO COMPARISON: No prior. FINDINGS: Supine and upright views of the abdomen are submitted. BOWEL: Normal abdominal bowel gas pattern. No evidence of bowel obstruction. No hepatic or splenic enlargement. No masses or abnormal intra-abdominal calcifications. No free intraperitoneal air identified. BONES: Status post ORIF left intertrochanteric fracture. Severe osteoarthritis of right hip. Multilevel lumbar degenerative disc disease. OTHER FINDINGS: None. IMPRESSION: Normal bowel gas pattern.
--- NOTE | 2017-02-21 10:59 | CP.PCM.PN ---
Subjective - Date & Time of Evaluation Date of Evaluation: 02/21/17 Time of Evaluation: 10:55 - Subjective Subjective: Remains on vigorous IV hydration Events noted- large vomitus over weekend Surgery evaluating patient K repleted urine na low- consistent with dehydration creat decraesing; renal US consistent with CKD SBO noted on CT scan Objective - Vital Signs/Intake and Output Vital Signs (last 24 hours): Temp Pulse Resp BP Pulse Ox 98.4 F 93 H 17 111/67 96 02/21/17 08:00 02/21/17 08:50 02/21/17 08:50 02/21/17 08:42 02/21/17 08:50 Intake and Output: 02/21/17 02/21/17 06:59 18:59 Intake Total 1250 200 Output Total 4250 Balance -3000 200 - Medications Medications: Current Medications Heparin Sodium (Porcine) (Heparin) 5,000 units SC Q12 [facility] Last Admin: 02/21/17 10:51 Dose: 5,000 units Cefazolin Sodium 1,000 mg/ (Sodium Chloride) 100 mls @ 200 mls/hr IVPB Q12H [facility] Last Admin: 02/21/17 10:50 Dose: 200 mls/hr Metronidazole 250 mg/ (Miscellaneous) 50 mls @ 100 mls/hr IVPB Q8 [facility] Lactated Ringer's (Lactated Ringer's) 1,000 mls @ 150 mls/hr IV .Q6H40M [facility] Last Admin: 02/21/17 10:50 Dose: 150 mls/hr Potassium Chloride (Potassium Chloride 20 Meq/100 Ml) 20 meq in 100 mls @ 50 mls/hr IVPB ONCE ONE Stop: 02/21/17 12:06 Last Admin: 02/21/17 10:50 Dose: 50 mls/hr Morphine Sulfate (Morphine) 2 mg IVP Q6 PRN PRN Reason: Pain, moderate (4-7) Ondansetron HCl (Zofran Inj) 4 mg IVP Q4H PRN PRN Reason: Nausea/Vomiting Last Admin: 02/20/17 21:10 Dose: 4 mg Pantoprazole Sodium (Protonix Inj) 40 mg IVP DAILY [facility] Last Admin: 02/21/17 10:51 Dose: 40 mg - Labs Labs: 02/21/17 06:09 02/21/17 06:10 PT 12.2 SECONDS (9.7-12.2) 02/20/17 10:07 INR 1.1 02/20/17 10:07 APTT 23 SECONDS (21-34) 02/20/17 10:07 - Constitutional Appears: No Acute Distress, Chronically Ill - Head Exam Head Exam: ATRAUMATIC, NORMAL INSPECTION - Eye Exam Eye Exam: EOMI, Normal appearance - Neck Exam Neck Exam: Normal Inspection. absent: Tenderness - Respiratory Exam Respiratory Exam: Clear to Ausculation Bilateral, NORMAL BREATHING PATTERN - Cardiovascular Exam Cardiovascular Exam: REGULAR RHYTHM, +S1 - GI/Abdominal Exam GI & Abdominal Exam: Soft. absent: Tenderness - Extremities Exam Extremities Exam: Normal Inspection. absent: Tenderness - Neurological Exam Neurological Exam: Awake, CN II-XII Intact - Skin Skin Exam: Dry, Warm Assessment and Plan (1) JAVIER (acute kidney injury) Status: Acute (2) Acute on chronic renal failure Status: Acute (3) Elevated troponin Status: Acute (4) Hypokalemia Status: Acute - Assessment and Plan (Free Text) Plan: Continue IV fluids Replete K Surgery following pt for bowel obstruction
[2017-02-21] MEDS: metroNIDAZOLE IV 500 mg/100 ml 250 MG in Premixed IV 1 EA IVPB SCH ×2 (14:55→22:24)
--- NOTE | 2017-02-21 15:19 | CP.CCUPN ---
CCU Subjective - Physician Review Subjective (Free Text): Patient was seen and examined at bedside. Patient reports that he is doing well. Patient denies chest pain, SOB, palpitations, fever, chills, abdominal pain and nausea and vomiting. CCU Objective - Vital Signs / Intake & Output Vital Signs (Last 4 hours): Vital Signs Temp Pulse Resp BP Pulse Ox 02/21/17 13:00 105 H 15 98 02/21/17 12:42 106 H 18 135/74 97 02/21/17 12:00 98.5 F 91 H 18 98 02/21/17 11:43 86 22 146/79 97 Intake and Output (Last 8hrs): Intake & Output 02/21/17 02/21/17 02/21/17 06:59 14:59 22:59 Intake Total 975 1050 Output Total 1150 720 Balance -175 330 Weight 135 lb Intake: Intake, IV Amount 975 950 Right Antecubital 900 950 Right Proximal Port 75 Antecubital Oral 100 Output: Gastric Amount 500 320 Nares 500 320 Urine 650 400 Urine, Voided 650 400 Other: # Voids Urine, Voided 0 # Bowel Movements 0 - Physical Exam Head: Positive for: Atraumatic Extroacular Muscles: Positive for: EOMI Respiratory/Chest: Positive for: Clear to Auscultation, Good Air Exchange. Negative for: Respiratory Distress, Accessory Muscle Use Cardiovascular: Positive for: Regular Rate and Rhythm, Normal S1, S2 Abdomen: Positive for: Normal Bowel Sounds, Other (NG tube in place). Negative for: Tenderness, Distention, Peritoneal Signs Upper Extremity: Negative for: Edema Lower Extremity: Negative for: Edema Neurological: Positive for: GCS=15, Speech Normal Skin: Positive for: Warm, Normal Color Psychiatric: Positive for: Alert, Oriented x 3 - Medications Active Medications: Active Medications Generic Name Dose Route Start Last Admin Trade Name Freq PRN Reason Stop Dose Admin Heparin Sodium (Porcine) 5,000 units 02/20/17 22:00 02/21/17 10:51 Heparin SC 5,000 units Q12 [facility] Administration Cefazolin Sodium 1,000 mg/ 100 mls @ 200 mls/hr 02/20/17 22:00 02/21/17 10:50 Sodium Chloride IVPB 200 mls/hr Q12H [facility] Administration Metronidazole 250 mg/ 50 mls @ 100 mls/hr 02/21/17 14:00 02/21/17 14:55 Miscellaneous IVPB 100 mls/hr Q8 [facility] Administration Lactated Ringer's 1,000 mls @ 150 mls/hr 02/21/17 09:55 02/21/17 10:50 Lactated Ringer's IV 150 mls/hr .Q6H40M [facility] Administration Morphine Sulfate 2 mg 02/20/17 15:33 Morphine IVP Q6 PRN Pain, moderate (4-7) Ondansetron HCl 4 mg 02/20/17 19:56 02/21/17 11:48 Zofran Inj IVP 4 mg Q4H PRN Administration Nausea/Vomiting Pantoprazole Sodium 40 mg 02/21/17 10:00 02/21/17 10:51 Protonix Inj IVP 40 mg DAILY [facility] Administration - Patient Studies Lab Studies: Lab Studies 02/21/17 02/21/17 02/21/17 Range/Units 06:10 06:09 03:03 WBC 4.5 L (4.8-10.8) K/uL RBC 4.83 (4.40-5.90) Mil/uL Hgb 15.6 (12.0-18.0) g/dL Hct 45.6 (35.0-51.0) % MCV 94.3 H (80.0-94.0) fL MCH 32.4 H (27.0-31.0) pg MCHC 34.3 (33.0-37.0) g/dL RDW 14.1 (11.5-14.5) % Plt Count 119 L D (130-400) K/uL MPV 10.2 (7.2-11.7) fL Neut % (Auto) 85.3 H (50.0-75.0) % Lymph % (Auto) 5.3 L (20.0-40.0) % Butts % (Auto) 9.3 (0.0-10.0) % Eos % (Auto) 0.0 (0.0-4.0) % Baso % (Auto) 0.1 (0.0-2.0) % Neut # 3.8 (1.8-7.0) K/uL Lymph # 0.2 L (1.0-4.3) K/uL Butts # 0.4 (0.0-0.8) K/uL Eos # 0.0 (0.0-0.7) K/uL Baso # 0.0 (0.0-0.2) K/uL Neutrophils % (Manual) 29 L (50-75) % Band Neutrophils % 44 H* (0-2) % Lymphocytes % (Manual) 6 L (20-40) % Reactive Lymphs % 1 H (0-0) % Monocytes % (Manual) 14 H (0-10) % Metamyelocytes % 4 H (0-0) % Myelocytes % 2 H (0-0) % Toxic Granulation Present Platelet Estimate Slightly decreased L (NORMAL) Large Platelets Present RBC Morphology Normal Polychromasia Hypochromasia (manual) Anisocytosis (manual) Sodium 138 (132-148) mmol/L Potassium 3.4 L (3.6-5.2) mmol/L Chloride 98 (98-107) mmol/L Carbon Dioxide 28 (22-30) mmol/L Anion Gap 15 (10-20) BUN 84 H (9-20) mg/dL Creatinine 2.3 H (0.8-1.5) mg/dL Est GFR ( Amer) 33 Est GFR (Non-Af Amer) 28 Random Glucose 104 (75-110) mg/dL Calcium 8.8 (8.6-10.4) mg/dl Phosphorus 3.2 (2.5-4.5) mg/dL Magnesium 1.9 (1.6-2.3) mg/dL Total Bilirubin 1.0 (0.2-1.3) mg/dL AST 37 (17-59) U/L ALT 35 (21-72) U/L Alkaline Phosphatase 51 (38-126) U/L Total Creatine Kinase (55-170) U/L CK-MB (Mass) (0.0-3.38) ng/mL Troponin I, Quant (0.00-0.120) ng/mL Total Protein 6.4 (6.3-8.3) g/dL Albumin 3.1 L (3.5-5.0) g/dL Globulin 3.2 (2.2-3.9) gm/dL Albumin/Globulin Ratio 1.0 (1.0-2.1) Urine Color (YELLOW) Urine Clarity (Clear) Urine pH (5.0-8.0) Ur Specific [place] (1.003-1.030) Urine Protein (NEGATIVE) mg/dL Urine Glucose (UA) (Normal) mg/dL Urine Ketones (NEGATIVE) mg/dL Urine Blood (NEGATIVE) Urine Nitrate (NEGATIVE) Urine Bilirubin (NEGATIVE) Urine Urobilinogen (0.2-1.0) mg/dL Ur Leukocyte Esterase (Negative) Pilar/uL Urine WBC (Auto) (0-5) /hpf Urine RBC (Auto) (0-3) /hpf Ur Random Sodium < 5 mmol/L 02/21/17 02/20/17 02/20/17 Range/Units 01:00 22:04 19:23 WBC 7.8 (4.8-10.8) K/uL RBC 4.64 (4.40-5.90) Mil/uL Hgb 14.7 (12.0-18.0) g/dL Hct 43.6 (35.0-51.0) % MCV 93.9 (80.0-94.0) fL MCH 31.7 H (27.0-31.0) pg MCHC 33.7 (33.0-37.0) g/dL RDW 14.1 (11.5-14.5) % Plt Count 145 (130-400) K/uL MPV 10.6 (7.2-11.7) fL Neut % (Auto) 77.3 H (50.0-75.0) % Lymph % (Auto) 4.0 L (20.0-40.0) % Butts % (Auto) 17.0 H (0.0-10.0) % Eos % (Auto) 0.1 (0.0-4.0) % Baso % (Auto) 1.6 (0.0-2.0) % Neut # 6.0 (1.8-7.0) K/uL Lymph # 0.3 L (1.0-4.3) K/uL Butts # 1.3 H (0.0-0.8) K/uL Eos # 0.0 (0.0-0.7) K/uL Baso # 0.1 (0.0-0.2) K/uL Neutrophils % (Manual) 74 (50-75) % Band Neutrophils % 5 H (0-2) % Lymphocytes % (Manual) 7 L (20-40) % Reactive Lymphs % (0-0) % Monocytes % (Manual) 14 H (0-10) % Metamyelocytes % (0-0) % Myelocytes % (0-0) % Toxic Granulation Present Platelet Estimate Normal (NORMAL) Large Platelets Present RBC Morphology Polychromasia Slight Hypochromasia (manual) Slight Anisocytosis (manual) Slight Sodium (132-148) mmol/L Potassium (3.6-5.2) mmol/L Chloride (98-107) mmol/L Carbon Dioxide (22-30) mmol/L Anion Gap (10-20) BUN (9-20) mg/dL Creatinine (0.8-1.5) mg/dL Est GFR ( Amer) Est GFR (Non-Af Amer) Random Glucose (75-110) mg/dL Calcium (8.6-10.4) mg/dl Phosphorus (2.5-4.5) mg/dL Magnesium (1.6-2.3) mg/dL Total Bilirubin (0.2-1.3) mg/dL AST (17-59) U/L ALT (21-72) U/L Alkaline Phosphatase (38-126) U/L Total Creatine Kinase 135 (55-170) U/L CK-MB (Mass) 7.05 H (0.0-3.38) ng/mL Troponin I, Quant 0.2370 H* (0.00-0.120) ng/mL Total Protein (6.3-8.3) g/dL Albumin (3.5-5.0) g/dL Globulin (2.2-3.9) gm/dL Albumin/Globulin Ratio (1.0-2.1) Urine Color Yellow (YELLOW) Urine Clarity Clear (Clear) Urine pH 5.0 (5.0-8.0) Ur Specific [place] 1.017 (1.003-1.030) Urine Protein 1+ H (NEGATIVE) mg/dL Urine Glucose (UA) Normal (Normal) mg/dL Urine Ketones Trace (NEGATIVE) mg/dL Urine Blood Negative (NEGATIVE) Urine Nitrate Negative (NEGATIVE) Urine Bilirubin Negative (NEGATIVE) Urine Urobilinogen Normal (0.2-1.0) mg/dL Ur Leukocyte Esterase Neg (Negative) Pilar/uL Urine WBC (Auto) 1 (0-5) /hpf Urine RBC (Auto) < 1 (0-3) /hpf Ur Random Sodium mmol/L 02/20/17 Range/Units 18:12 WBC (4.8-10.8) K/uL RBC (4.40-5.90) Mil/uL Hgb (12.0-18.0) g/dL Hct (35.0-51.0) % MCV (80.0-94.0) fL MCH (27.0-31.0) pg MCHC (33.0-37.0) g/dL RDW (11.5-14.5) % Plt Count (130-400) K/uL MPV (7.2-11.7) fL Neut % (Auto) (50.0-75.0) % Lymph % (Auto) (20.0-40.0) % Butts % (Auto) (0.0-10.0) % Eos % (Auto) (0.0-4.0) % Baso % (Auto) (0.0-2.0) % Neut # (1.8-7.0) K/uL Lymph # (1.0-4.3) K/uL Butts # (0.0-0.8) K/uL Eos # (0.0-0.7) K/uL Baso # (0.0-0.2) K/uL Neutrophils % (Manual) (50-75) % Band Neutrophils % (0-2) % Lymphocytes % (Manual) (20-40) % Reactive Lymphs % (0-0) % Monocytes % (Manual) (0-10) % Metamyelocytes % (0-0) % Myelocytes % (0-0) % Toxic Granulation Platelet Estimate (NORMAL) Large Platelets RBC Morphology Polychromasia Hypochromasia (manual) Anisocytosis (manual) Sodium 133 (132-148) mmol/L Potassium 3.4 L (3.6-5.2) mmol/L Chloride 94 L (98-107) mmol/L Carbon Dioxide 27 (22-30) mmol/L Anion Gap 15 (10-20) BUN 94 H (9-20) mg/dL Creatinine 2.5 H (0.8-1.5) mg/dL Est GFR ( Amer) 30 Est GFR (Non-Af Amer) 25 Random Glucose 126 H (75-110) mg/dL Calcium 8.5 L (8.6-10.4) mg/dl Phosphorus 3.4 (2.5-4.5) mg/dL Magnesium 2.0 (1.6-2.3) mg/dL Total Bilirubin 0.8 (0.2-1.3) mg/dL AST 44 (17-59) U/L ALT 42 (21-72) U/L Alkaline Phosphatase 69 (38-126) U/L Total Creatine Kinase 151 (55-170) U/L CK-MB (Mass) 7.83 H (0.0-3.38) ng/mL Troponin I, Quant 0.2560 H* (0.00-0.120) ng/mL Total Protein 7.3 (6.3-8.3) g/dL Albumin 3.7 (3.5-5.0) g/dL Globulin 3.5 (2.2-3.9) gm/dL Albumin/Globulin Ratio 1.1 (1.0-2.1) Urine Color (YELLOW) Urine Clarity (Clear) Urine pH (5.0-8.0) Ur Specific [place] (1.003-1.030) Urine Protein (NEGATIVE) mg/dL Urine Glucose (UA) (Normal) mg/dL Urine Ketones (NEGATIVE) mg/dL Urine Blood (NEGATIVE) Urine Nitrate (NEGATIVE) Urine Bilirubin (NEGATIVE) Urine Urobilinogen (0.2-1.0) mg/dL Ur Leukocyte Esterase (Negative) Pilar/uL Urine WBC (Auto) (0-5) /hpf Urine RBC (Auto) (0-3) /hpf Ur Random Sodium mmol/L Laboratory Results - last 24 hr 02/20/17 02/20/17 02/20/17 18:12 19:23 22:04 WBC 7.8 RBC 4.64 Hgb 14.7 Hct 43.6 MCV 93.9 MCH 31.7 H MCHC 33.7 RDW 14.1 Plt Count 145 MPV 10.6 Neut % (Auto) 77.3 H Lymph % (Auto) 4.0 L Butts % (Auto) 17.0 H Eos % (Auto) 0.1 Baso % (Auto) 1.6 Neut # 6.0 Lymph # 0.3 L Butts # 1.3 H Eos # 0.0 Baso # 0.1 Neutrophils % (Manual) 74 Band Neutrophils % 5 H Lymphocytes % (Manual) 7 L Reactive Lymphs % Monocytes % (Manual) 14 H Metamyelocytes % Myelocytes % Toxic Granulation Present Platelet Estimate Normal Large Platelets Present RBC Morphology Polychromasia Slight Hypochromasia (manual) Slight Anisocytosis (manual) Slight Sodium 133 Potassium 3.4 L Chloride 94 L Carbon Dioxide 27 Anion Gap 15 BUN 94 H Creatinine 2.5 H Est GFR ( Amer) 30 Est GFR (Non-Af Amer) 25 Random Glucose 126 H Calcium 8.5 L Phosphorus 3.4 Magnesium 2.0 Total Bilirubin 0.8 AST 44 ALT 42 Alkaline Phosphatase 69 Total Creatine Kinase 151 CK-MB (Mass) 7.83 H Troponin I, Quant 0.2560 H* Total Protein 7.3 Albumin 3.7 Globulin 3.5 Albumin/Globulin Ratio 1.1 Urine Color Yellow Urine Clarity Clear Urine pH 5.0 Ur Specific [place] 1.017 Urine Protein 1+ H Urine Glucose (UA) Normal Urine Ketones Trace Urine Blood Negative Urine Nitrate Negative Urine Bilirubin Negative Urine Urobilinogen Normal Ur Leukocyte Esterase Neg Urine WBC (Auto) 1 Urine RBC (Auto) < 1 Ur Random Sodium 02/21/17 02/21/17 02/21/17 01:00 03:03 06:09 WBC 4.5 L RBC 4.83 Hgb 15.6 Hct 45.6 MCV 94.3 H MCH 32.4 H MCHC 34.3 RDW 14.1 Plt Count 119 L D MPV 10.2 Neut % (Auto) 85.3 H Lymph % (Auto) 5.3 L Butts % (Auto) 9.3 Eos % (Auto) 0.0 Baso % (Auto) 0.1 Neut # 3.8 Lymph # 0.2 L Butts # 0.4 Eos # 0.0 Baso # 0.0 Neutrophils % (Manual) 29 L Band Neutrophils % 44 H* Lymphocytes % (Manual) 6 L Reactive Lymphs % 1 H Monocytes % (Manual) 14 H Metamyelocytes % 4 H Myelocytes % 2 H Toxic Granulation Present Platelet Estimate Slightly decreased L Large Platelets Present RBC Morphology Normal Polychromasia Hypochromasia (manual) Anisocytosis (manual) Sodium Potassium Chloride Carbon Dioxide Anion Gap BUN Creatinine Est GFR ( Amer) Est GFR (Non-Af Amer) Random Glucose Calcium Phosphorus Magnesium Total Bilirubin AST ALT Alkaline Phosphatase Total Creatine Kinase 135 CK-MB (Mass) 7.05 H Troponin I, Quant 0.2370 H* Total Protein Albumin Globulin Albumin/Globulin Ratio Urine Color Urine Clarity Urine pH Ur Specific [place] Urine Protein Urine Glucose (UA) Urine Ketones Urine Blood Urine Nitrate Urine Bilirubin Urine Urobilinogen Ur Leukocyte Esterase Urine WBC (Auto) Urine RBC (Auto) Ur Random Sodium < 5 02/21/17 06:10 WBC RBC Hgb Hct MCV MCH MCHC RDW Plt Count MPV Neut % (Auto) Lymph % (Auto) Butts % (Auto) Eos % (Auto) Baso % (Auto) Neut # Lymph # Butts # Eos # Baso # Neutrophils % (Manual) Band Neutrophils % Lymphocytes % (Manual) Reactive Lymphs % Monocytes % (Manual) Metamyelocytes % Myelocytes % Toxic Granulation Platelet Estimate Large Platelets RBC Morphology Polychromasia Hypochromasia (manual) Anisocytosis (manual) Sodium 138 Potassium 3.4 L Chloride 98 Carbon Dioxide 28 Anion Gap 15 BUN 84 H Creatinine 2.3 H Est GFR ( Amer) 33 Est GFR (Non-Af Amer) 28 Random Glucose 104 Calcium 8.8 Phosphorus 3.2 Magnesium 1.9 Total Bilirubin 1.0 AST 37 ALT 35 Alkaline Phosphatase 51 Total Creatine Kinase CK-MB (Mass) Troponin I, Quant Total Protein 6.4 Albumin 3.1 L Globulin 3.2 Albumin/Globulin Ratio 1.0 Urine Color Urine Clarity Urine pH Ur Specific [place] Urine Protein Urine Glucose (UA) Urine Ketones Urine Blood Urine Nitrate Urine Bilirubin Urine Urobilinogen Ur Leukocyte Esterase Urine WBC (Auto) Urine RBC (Auto) Ur Random Sodium Review of Systems - Constitutional Constitutional: absent: Fever, Chills, Weakness - EENT Eyes: absent: Change in Vision Ears: absent: Dizziness - Cardiovascular Cardiovascular: absent: Chest Pain, Diaphoresis, Dyspnea, Palpitations - Respiratory Respiratory: absent: Dyspnea - Gastrointestinal Gastrointestinal: absent: Abdominal Pain, Cramping, Nausea, Vomiting - Neurological Neurological: absent: Dizziness, Headaches, Weakness - Endocrine Endocrine: absent: Fatigue, Palpitations Critical Care Progress Note - Nutrition Nutrition: Nutrition Category Date Time Status NPO Diet [DIET] Diets 02/20/17 Dinner Active Assessment/Plan - Assessment and Plan (Free Text) Assessment: 77-year-old male with past medical history of hypertension, chronic renal insufficiency, mild, proteinuria came to the emergency room with the sudden onset of abdominal pain and admitted with consideration for intestinal obstruction. Plan: Neuro: Alert, awake and oriented Cardio: Hx of HTN Home medication: * Metoprolol ER- HCTZ 12.5mg PO daily GI: Bowel obstruction General surgery, Dr. Barrera---> Help appreciated Abdomen X-ray (02/21/17):Normal bowel gas pattern. Abdomen/Pelvis CT (02/20/17): Findings consistent with high-grade bowel obstruction. The transitional point is likely at the right lower abdomen/ right pelvis. Medication/Management: * NPO * NG tube with significant drainage * Cefazolin 1,000mg IVPB Q12H * Metronidazole 250mg IVPB Q8H * Morphine 2mg IVP Q6 PRN for pain control * Zofran 4mg IVP Q4H prn Endo: No acute issues Renal: Hypokalemia, hx of chronic renal insufficiency Renal US ( 02/20/17): Echogenic kidneys suggestive of medical renal disease. [employer]: Dr. Lawrence on board---> Help appreciated Medication/Management: * K+ repleted appropriately * Aggressive hydration: Lactate ringer @150mls/hr ID: Bandemia Medication/Management: * Lactate ringer @150mls/hr * Cefazolin 1,000mg IVPB Q12H Prophylaxis: DVT: Ambulating, out of bed to chair, heparin 5,000 units SC Q12H GI: Protonix 40mg IVP daily
--- NOTE | 2017-02-21 17:30 | CP.PCM.CON ---
<Noman Vaz - Last Filed: 02/21/17 19:11> History of Present Illness - History of Present Illness History of Present Illness: Cardiology Consult Note- Dr. Santiago's service CC: abdominal discomfort HPI: 77 year old male with past medical history significant for hypertension, chronic kidney disease and mild proteinuria presented initially on March 23 with complaints of nausea and vomiting which initially started on Tuesday, February 15. Patient states that he thought it was a stomach bug and thus tried to let the symptoms run their course. Patient denies any chest pain or shortness of breath. He states that he is an avid walker and can walk for extended distances without feeling short of breath. Patient admits to palpitations yesterday for a brief period of time. Patient states that He denies subjective fevers or chills, chest pain, headaches, paresthesias and shortness of breath. Cardiology consulted for elevated troponin levels. Past Medical History: As stated above Past Surgical History: Patient had an ORIF of left femur 01/24/2001 Family History: Dad had DM which was diagnosed at 90 years of age; Mom's family has heart related medical conditions Medications: 100 mg of a Blood pressure medication ,Cholesterol medication and eye drops ( patient is unsure of the names) Social Hx: Patient denies tobacco, drug or alcohol use Allergies- NKDA PMD: Dr. Cole Review of Systems - Constitutional Constitutional: absent: Fever, Headache - EENT Nose/Mouth/Throat: absent: Nasal Congestion, Nasal Discharge - Cardiovascular Cardiovascular: Palpitations. absent: Chest Pain, Chest Pain at Rest, Dyspnea, Dyspnea on Exertion - Respiratory Respiratory: absent: Cough, Dyspnea on Exertion, Chest Congestion - Gastrointestinal Gastrointestinal: Abdominal Pain, Nausea, Vomiting - Musculoskeletal Musculoskeletal: absent: Back Pain - Neurological Neurological: absent: Numbness, Weakness - Hematologic/Lymphatic Hematologic: absent: Easy Bleeding, Easy Bruising Past Patient History - Past Medical History & Family History Past Medical History?: Yes - Past Social History Smoking Status: Never Smoked Chewing Tobacco Use: No Cigar Use: No Alcohol: None - CARDIAC Hx Hypercholesterolemia: Yes Hx Hypertension: Yes - PULMONARY Hx Respiratory Disorders: No - NEUROLOGICAL Hx Neurological Disorder: No - HEENT Hx HEENT Problems: Yes Hx Cataracts: Yes (LEFT EYE CATARACT) - RENAL Hx Chronic Kidney Disease: No - ENDOCRINE/METABOLIC Hx Endocrine Disorders: No - HEMATOLOGICAL/ONCOLOGICAL Hx Blood Disorders: No - INTEGUMENTARY Hx Dermatological Problems: No - MUSCULOSKELETAL/RHEUMATOLOGICAL Hx Fractures: Yes (LEFT UPPER LEG/HIP FRACTURE-FROM FALL OFF LADDER) - GASTROINTESTINAL Hx Gastrointestinal Disorders: Yes Other/Comment: right inguinal hernia - GENITOURINARY/GYNECOLOGICAL Hx Genitourinary Disorders: No - PSYCHIATRIC Hx Substance Use: No - SURGICAL HISTORY Hx Surgeries: Yes Hx Orthopedic Surgery: Yes (LEFT UPPERLEG/HIP FX. REPAIR) - ANESTHESIA Hx Anesthesia: Yes Hx Anesthesia Reactions: No Hx Malignant Hyperthermia: No Meds Allergies/Adverse Reactions: Allergies Allergy/AdvReac Type Severity Reaction Status Date / Time No Known Allergies Allergy Verified 02/20/17 09:18 - Medications Medications: Current Medications Heparin Sodium (Porcine) (Heparin) 5,000 units SC Q12 [facility] Last Admin: 02/21/17 10:51 Dose: 5,000 units Cefazolin Sodium 1,000 mg/ (Sodium Chloride) 100 mls @ 200 mls/hr IVPB Q12H [facility] Last Admin: 02/21/17 10:50 Dose: 200 mls/hr Metronidazole 250 mg/ (Miscellaneous) 50 mls @ 100 mls/hr IVPB Q8 [facility] Last Admin: 02/21/17 14:55 Dose: 100 mls/hr Lactated Ringer's (Lactated Ringer's) 1,000 mls @ 150 mls/hr IV .Q6H40M [facility] Last Admin: 02/21/17 10:50 Dose: 150 mls/hr Morphine Sulfate (Morphine) 2 mg IVP Q6 PRN PRN Reason: Pain, moderate (4-7) Ondansetron HCl (Zofran Inj) 4 mg IVP Q4H PRN PRN Reason: Nausea/Vomiting Last Admin: 02/21/17 11:48 Dose: 4 mg Pantoprazole Sodium (Protonix Inj) 40 mg IVP DAILY [facility] Last Admin: 02/21/17 10:51 Dose: 40 mg Physical Exam - Constitutional Appears: Non-toxic, No Acute Distress - Head Exam Head Exam: ATRAUMATIC, NORMAL INSPECTION, NORMOCEPHALIC - Eye Exam Eye Exam: EOMI, Normal appearance, PERRL Pupil Exam: PERRL - ENT Exam ENT Exam: Mucous Membranes Moist Additional comments: NG tube in place - Neck Exam Neck exam: Positive for: Full Rom - Respiratory Exam Respiratory Exam: NORMAL BREATHING PATTERN. absent: Wheezes - Cardiovascular Exam Cardiovascular Exam: +S1, +S2 - GI/Abdominal Exam GI & Abdominal Exam: Normal Bowel Sounds, Soft - Extremities Exam Extremities exam: Positive for: full ROM, normal capillary refill, pedal pulses present. Negative for: pedal edema - Back Exam Back exam: FULL ROM - Neurological Exam Neurological exam: Alert, CN II-XII Intact, Normal Gait, Oriented x3 - Psychiatric Exam Psychiatric exam: Normal Affect, Normal Mood - Skin Skin Exam: Dry, Intact, Normal Color, Warm Results - Vital Signs Recent Vital Signs: Last Vital Signs Temp 97.9 F 02/21/17 16:00 Pulse 101 H 02/21/17 16:00 Resp 21 02/21/17 16:00 BP 124/70 02/21/17 15:42 Pulse Ox 99 02/21/17 16:00 - Labs Result Diagrams: 02/21/17 06:09 02/21/17 06:10 Labs: Laboratory Results - last 24 hr 02/20/17 02/20/17 02/20/17 18:12 19:23 22:04 WBC 7.8 RBC 4.64 Hgb 14.7 Hct 43.6 MCV 93.9 MCH 31.7 H MCHC 33.7 RDW 14.1 Plt Count 145 MPV 10.6 Neut % (Auto) 77.3 H Lymph % (Auto) 4.0 L Barnes % (Auto) 17.0 H Eos % (Auto) 0.1 Baso % (Auto) 1.6 Neut # 6.0 Lymph # 0.3 L Barnes # 1.3 H Eos # 0.0 Baso # 0.1 Neutrophils % (Manual) 74 Band Neutrophils % 5 H Lymphocytes % (Manual) 7 L Reactive Lymphs % Monocytes % (Manual) 14 H Metamyelocytes % Myelocytes % Toxic Granulation Present Platelet Estimate Normal Large Platelets Present RBC Morphology Polychromasia Slight Hypochromasia (manual) Slight Anisocytosis (manual) Slight Sodium 133 Potassium 3.4 L Chloride 94 L Carbon Dioxide 27 Anion Gap 15 BUN 94 H Creatinine 2.5 H Est GFR ( Amer) 30 Est GFR (Non-Af Amer) 25 Random Glucose 126 H Calcium 8.5 L Phosphorus 3.4 Magnesium 2.0 Total Bilirubin 0.8 AST 44 ALT 42 Alkaline Phosphatase 69 Total Creatine Kinase 151 CK-MB (Mass) 7.83 H Troponin I, Quant 0.2560 H* Total Protein 7.3 Albumin 3.7 Globulin 3.5 Albumin/Globulin Ratio 1.1 Urine Color Yellow Urine Clarity Clear Urine pH 5.0 Ur Specific [place] 1.017 Urine Protein 1+ H Urine Glucose (UA) Normal Urine Ketones Trace Urine Blood Negative Urine Nitrate Negative Urine Bilirubin Negative Urine Urobilinogen Normal Ur Leukocyte Esterase Neg Urine WBC (Auto) 1 Urine RBC (Auto) < 1 Ur Random Sodium 02/21/17 02/21/17 02/21/17 01:00 03:03 06:09 WBC 4.5 L RBC 4.83 Hgb 15.6 Hct 45.6 MCV 94.3 H MCH 32.4 H MCHC 34.3 RDW 14.1 Plt Count 119 L D MPV 10.2 Neut % (Auto) 85.3 H Lymph % (Auto) 5.3 L Barnes % (Auto) 9.3 Eos % (Auto) 0.0 Baso % (Auto) 0.1 Neut # 3.8 Lymph # 0.2 L Barnes # 0.4 Eos # 0.0 Baso # 0.0 Neutrophils % (Manual) 29 L Band Neutrophils % 44 H* Lymphocytes % (Manual) 6 L Reactive Lymphs % 1 H Monocytes % (Manual) 14 H Metamyelocytes % 4 H Myelocytes % 2 H Toxic Granulation Present Platelet Estimate Slightly decreased L Large Platelets Present RBC Morphology Normal Polychromasia Hypochromasia (manual) Anisocytosis (manual) Sodium Potassium Chloride Carbon Dioxide Anion Gap BUN Creatinine Est GFR ( Amer) Est GFR (Non-Af Amer) Random Glucose Calcium Phosphorus Magnesium Total Bilirubin AST ALT Alkaline Phosphatase Total Creatine Kinase 135 CK-MB (Mass) 7.05 H Troponin I, Quant 0.2370 H* Total Protein Albumin Globulin Albumin/Globulin Ratio Urine Color Urine Clarity Urine pH Ur Specific [place] Urine Protein Urine Glucose (UA) Urine Ketones Urine Blood Urine Nitrate Urine Bilirubin Urine Urobilinogen Ur Leukocyte Esterase Urine WBC (Auto) Urine RBC (Auto) Ur Random Sodium < 5 02/21/17 06:10 WBC RBC Hgb Hct MCV MCH MCHC RDW Plt Count MPV Neut % (Auto) Lymph % (Auto) Barnes % (Auto) Eos % (Auto) Baso % (Auto) Neut # Lymph # Barnes # Eos # Baso # Neutrophils % (Manual) Band Neutrophils % Lymphocytes % (Manual) Reactive Lymphs % Monocytes % (Manual) Metamyelocytes % Myelocytes % Toxic Granulation Platelet Estimate Large Platelets RBC Morphology Polychromasia Hypochromasia (manual) Anisocytosis (manual) Sodium 138 Potassium 3.4 L Chloride 98 Carbon Dioxide 28 Anion Gap 15 BUN 84 H Creatinine 2.3 H Est GFR ( Amer) 33 Est GFR (Non-Af Amer) 28 Random Glucose 104 Calcium 8.8 Phosphorus 3.2 Magnesium 1.9 Total Bilirubin 1.0 AST 37 ALT 35 Alkaline Phosphatase 51 Total Creatine Kinase CK-MB (Mass) Troponin I, Quant Total Protein 6.4 Albumin 3.1 L Globulin 3.2 Albumin/Globulin Ratio 1.0 Urine Color Urine Clarity Urine pH Ur Specific [place] Urine Protein Urine Glucose (UA) Urine Ketones Urine Blood Urine Nitrate Urine Bilirubin Urine Urobilinogen Ur Leukocyte Esterase Urine WBC (Auto) Urine RBC (Auto) Ur Random Sodium Assessment & Plan (1) Elevated troponin Assessment and Plan: Mildly elevated Troponins (0.2980, 0.2560, 0.2370) EKG: Sinus tachy- likely secondarily due to dehydration Trending downwards Likely elevated secondarily due to renal insufficiency Continue to monitor Patient denies chest pain at this time. He will benefit from a stress test once his other symptoms have stabilized and ceased Will continue to monitor Status: Acute (2) Small bowel obstruction Assessment and Plan: Abdominal XRAY- Normal gas pattern noted on exam. No apparent signs of obstruction Management per Surgery Patient to OR for Ex-Lap F/U Status: Acute (3) Renal insufficiency Assessment and Plan: Urine Sodium Low Renal US : echogenic kidneys suggestive of medical renal disease with no evidence of hydronephrosis Nephrology on the case Status: Acute (4) Hypertension Assessment and Plan: Normotensive at this time Is not any anti-hypertensives at this time Continue to monitor Status: Acute (5) Hypercholesteremia Assessment and Plan: F/U Lipid Panel Patient is on Simvastatin at home. Will begin Crestor 5 mg Status: Acute (6) Prophylactic measure Assessment and Plan: PPI 40 mg IV daily Heparin SC Q12 [facility] Discussed with attending. Planning and management per Dr. Santiago. Status: Acute <Jermaine Santiago - Last Filed: 02/21/17 21:29> Meds - Medications Medications: Current Medications Heparin Sodium (Porcine) (Heparin) 5,000 units SC Q12 [facility] Last Admin: 02/21/17 10:51 Dose: 5,000 units Hydromorphone HCl (Dilaudid) 0.5 mg IVP Q4H PRN PRN Reason: Pain, moderate (4-7) Cefazolin Sodium 1,000 mg/ (Sodium Chloride) 100 mls @ 200 mls/hr IVPB Q12H [facility] Last Admin: 02/21/17 10:50 Dose: 200 mls/hr Metronidazole 250 mg/ (Miscellaneous) 50 mls @ 100 mls/hr IVPB Q8 [facility] Last Admin: 02/21/17 14:55 Dose: 100 mls/hr Lactated Ringer's (Lactated Ringer's) 1,000 mls @ 150 mls/hr IV .Q6H40M [facility] Last Admin: 02/21/17 17:36 Dose: Not Given Ondansetron HCl (Zofran Inj) 4 mg IVP Q4H PRN PRN Reason: Nausea/Vomiting Last Admin: 02/21/17 11:48 Dose: 4 mg Pantoprazole Sodium (Protonix Inj) 40 mg IVP DAILY [facility] Last Admin: 02/21/17 10:51 Dose: 40 mg Rosuvastatin Calcium (Crestor) 5 mg PO HS [facility] Results - Vital Signs Recent Vital Signs: Last Vital Signs Temp 97.9 F 02/21/17 16:00 Pulse 98 H 02/21/17 17:42 Resp 25 H 02/21/17 17:42 BP 120/67 02/21/17 17:42 Pulse Ox 97 02/21/17 17:42 - Labs Result Diagrams: 02/21/17 20:59 02/21/17 06:10 Labs: Laboratory Results - last 24 hr 02/20/17 02/20/17 02/21/17 18:12 22:04 01:00 WBC RBC Hgb Hct MCV MCH MCHC RDW Plt Count MPV Neut % (Auto) Lymph % (Auto) Barnes % (Auto) Eos % (Auto) Baso % (Auto) Neut # Lymph # Barnes # Eos # Baso # Neutrophils % (Manual) Band Neutrophils % Lymphocytes % (Manual) Reactive Lymphs % Monocytes % (Manual) Metamyelocytes % Myelocytes % Toxic Granulation Platelet Estimate Large Platelets RBC Morphology Sodium 133 Potassium 3.4 L Chloride 94 L Carbon Dioxide 27 Anion Gap 15 BUN 94 H Creatinine 2.5 H Est GFR ( Amer) 30 Est GFR (Non-Af Amer) 25 Random Glucose 126 H Calcium 8.5 L Phosphorus 3.4 Magnesium 2.0 Total Bilirubin 0.8 AST 44 ALT 42 Alkaline Phosphatase 69 Total Creatine Kinase 151 135 CK-MB (Mass) 7.83 H 7.05 H Troponin I, Quant 0.2560 H* 0.2370 H* Total Protein 7.3 Albumin 3.7 Globulin 3.5 Albumin/Globulin Ratio 1.1 Urine Color Yellow Urine Clarity Clear Urine pH 5.0 Ur Specific [place] 1.017 Urine Protein 1+ H Urine Glucose (UA) Normal Urine Ketones Trace Urine Blood Negative Urine Nitrate Negative Urine Bilirubin Negative Urine Urobilinogen Normal Ur Leukocyte Esterase Neg Urine WBC (Auto) 1 Urine RBC (Auto) < 1 Ur Random Sodium 02/21/17 02/21/17 02/21/17 03:03 06:09 06:10 WBC 4.5 L RBC 4.83 Hgb 15.6 Hct 45.6 MCV 94.3 H MCH 32.4 H MCHC 34.3 RDW 14.1 Plt Count 119 L D MPV 10.2 Neut % (Auto) 85.3 H Lymph % (Auto) 5.3 L Barnes % (Auto) 9.3 Eos % (Auto) 0.0 Baso % (Auto) 0.1 Neut # 3.8 Lymph # 0.2 L Barnes # 0.4 Eos # 0.0 Baso # 0.0 Neutrophils % (Manual) 29 L Band Neutrophils % 44 H* Lymphocytes % (Manual) 6 L Reactive Lymphs % 1 H Monocytes % (Manual) 14 H Metamyelocytes % 4 H Myelocytes % 2 H Toxic Granulation Present Platelet Estimate Slightly decreased L Large Platelets Present RBC Morphology Normal Sodium 138 Potassium 3.4 L Chloride 98 Carbon Dioxide 28 Anion Gap 15 BUN 84 H Creatinine 2.3 H Est GFR ( Amer) 33 Est GFR (Non-Af Amer) 28 Random Glucose 104 Calcium 8.8 Phosphorus 3.2 Magnesium 1.9 Total Bilirubin 1.0 AST 37 ALT 35 Alkaline Phosphatase 51 Total Creatine Kinase CK-MB (Mass) Troponin I, Quant Total Protein 6.4 Albumin 3.1 L Globulin 3.2 Albumin/Globulin Ratio 1.0 Urine Color Urine Clarity Urine pH Ur Specific [place] Urine Protein Urine Glucose (UA) Urine Ketones Urine Blood Urine Nitrate Urine Bilirubin Urine Urobilinogen Ur Leukocyte Esterase Urine WBC (Auto) Urine RBC (Auto) Ur Random Sodium < 5 02/21/17 20:59 WBC 8.4 D RBC 4.14 L Hgb 13.2 D Hct 39.7 MCV 96.0 H MCH 31.8 H MCHC 33.2 RDW 14.6 H Plt Count 97 L D MPV 9.8 Neut % (Auto) 85.4 H Lymph % (Auto) 8.4 L Barnes % (Auto) 6.0 Eos % (Auto) 0.1 Baso % (Auto) 0.1 Neut # 7.2 H Lymph # 0.7 L Barnes # 0.5 Eos # 0.0 Baso # 0.0 Neutrophils % (Manual) Band Neutrophils % Lymphocytes % (Manual) Reactive Lymphs % Monocytes % (Manual) Metamyelocytes % Myelocytes % Toxic Granulation Platelet Estimate Large Platelets RBC Morphology Sodium Potassium Chloride Carbon Dioxide Anion Gap BUN Creatinine Est GFR ( Amer) Est GFR (Non-Af Amer) Random Glucose Calcium Phosphorus Magnesium Total Bilirubin AST ALT Alkaline Phosphatase Total Creatine Kinase CK-MB (Mass) Troponin I, Quant Total Protein Albumin Globulin Albumin/Globulin Ratio Urine Color Urine Clarity Urine pH Ur Specific [place] Urine Protein Urine Glucose (UA) Urine Ketones Urine Blood Urine Nitrate Urine Bilirubin Urine Urobilinogen Ur Leukocyte Esterase Urine WBC (Auto) Urine RBC (Auto) Ur Random Sodium Assessment & Plan - Assessment and Plan (Free Text) Assessment: Patient seen and evaluated with the biomedical analytical scientist Plan of care as documented
[2017-02-21] MEDS ORDERED: Propofol 10 mg/ml Inj (20 ML) ONE (17:31)
[2017-02-21] MEDS ORDERED: Rocuronium 10 mg/ml (5 ml) ONE (17:34)
[2017-02-21] MEDS ORDERED: Midazolam 2 MG/2 ML VIAL ONE (17:34)
[2017-02-21] MEDS ORDERED: Succinylcholine Chloride 20 mg/ml Syr (5 ml) IV ONE (17:41)
[2017-02-21] MEDS ORDERED: Lactated Ringer's 1,000 ML IV ONE ×3 (17:55→18:20)
[2017-02-21] MEDS ORDERED: ceFAZolin IV 1 gm in Dextrose 1 GM/50 ML BAG IVPB ONE (18:22)
[2017-02-21] MEDS ORDERED: metroNIDAZOLE IV 500 mg/100 ml 500 MG/100 ML BAG ONE (18:23)
[2017-02-21] MEDS ORDERED: Bupivacaine 0.5% Inj(30mL) ONE (19:24)
[2017-02-21] MEDS ORDERED: HYDROmorphone 0.5 mg/0.5 ml ISec IVP PRN (20:02)
--- NOTE | 2017-02-21 20:02 | PCM.SURG1 ---
Surgeon's Initial Post Op Note - Surgeon's Notes Surgeon: Bruce Power Bender Operator: Abhay PGY3 Type of Anesthesia: General Endo, Local Pre-Operative Diagnosis: SBO Operative Findings: Incarcerated direct R inguinal hernia Post-Operative Diagnosis: Incarcerated R inguinal hernia Operation Performed: Diagnostic laparoscopy w. reduction of incarcerated bowel and open repair of R inguinal hernia Specimen/Specimens Removed: none Estimated Blood Loss: EBL {In ML}: 25 Blood Products Given: N/A Drains Used: No Drains Post-Op Condition: Good Date of Surgery/Procedure: 02/21/17 Time of Surgery/Procedure: 20:01
[2017-02-21 21:05] LABS: BASO % 0.1 % (0.0-2.0); EOS % 0.1 % (0.0-4.0); HEMATOCRIT 39.7 % (35.0-51.0); LYMPH # 0.7 K/uL (1.0-4.3); LYMPH % 8.4 % (20.0-40.0); MEAN CORPUSCULAR HEMOGLOBIN 31.8 pg (27.0-31.0); MEAN CORPUSCULAR HGB CONC 33.2 g/dL (33.0-37.0); MEAN PLATELET VOLUME 9.8 fL (7.2-11.7); MONO # 0.5 K/uL (0.0-0.8); RED CELL DISTRIBUTION WIDTH 14.6 % (11.5-14.5)
[2017-02-21 21:11] LABS: WHITE BLOOD COUNT 8.4 K/uL (4.8-10.8)
[2017-02-21 21:12] LABS: PLATELET COUNT 97 K/uL (130-400)
[2017-02-21 21:38] LABS: POTASSIUM 3.7 mmol/L (3.6-5.2)
--- NOTE | 2017-02-21 21:39 | CARD ---
APPROVED REPORT EKG Measurement Heart [id number] HI [id number] <Conclusion> Sinus tachycardia Possible Left atrial enlargement Nonspecific ST and T wave abnormality Abnormal ECG
[2017-02-21 21:40] LABS: ALB/GLOB RATIO 1.1 (1.0-2.1); BILIRUBIN,TOTAL 0.7 mg/dL (0.2-1.3); TOTAL PROTEIN 5.2 g/dL (6.3-8.3)
[2017-02-21 21:41] LABS: CALCIUM 8.1 mg/dl (8.6-10.4); MAGNESIUM 1.8 mg/dL (1.6-2.3)
[2017-02-21 21:42] LABS: NEUTROPHIL 36 % (50-75); TOTAL CELLS COUNTED 100
[2017-02-21 21:43] LABS: METAMYELOCYTE 2 % (0-0); MYELOCYTE 3 % (0-0)
[2017-02-22] MEDS: Lactated Ringer's 1,000 ML IV SCH ×4 (00:05→17:10)
--- NOTE | 2017-02-22 02:50 | CARD ---
APPROVED REPORT EXAM: Two-dimensional and M-mode echocardiogram with Doppler and color Doppler. Other Information Quality : GoodRhythm : INDICATION RENAL FAILURE-TROPONIN RISK FACTORS Hypertension 2D DIMENSIONS IVSd0.9 (0.7-1.1cm)LVDd3.4 (3.9-5.9cm) PWd1.1 (0.7-1.1cm)LVDs1.9 (2.5-4.0cm) FS (%) 44.8 %LVEF (%)77.2 (>50%) M-Mode DIMENSIONS Left Atrium (MM)1.94 (2.5-4.0cm)Aortic Root3.03 (2.2-3.7cm) Aortic Cusp Exc.1.94 (1.5-2.0cm) Mitral Valve MV E Favzoisz36.5cm/sMV A Bfszonnd67.1cm/sE/A ratio0.7 TDI E/Lateral E'0.0E/Medial E'0.0 Tricuspid Valve TR Peak Eiqdduja278ve/sTR Peak Gr.[id number] LEFT VENTRICLE The left ventricle is normal size. There is normal left ventricular wall thickness. Left ventricle systolic function is normal. The Ejection Fraction is >70%. There is normal LV segmental wall motion. The left ventricular diastolic function is abnormal. Transmitral Doppler flow pattern is Grade I-abnormal relaxation pattern. No left ventricle thrombus noted on this study. RIGHT VENTRICLE The right ventricle is normal size. The right ventricular systolic function is normal. ATRIA The left atrium size is normal. The right atrium size is normal. AORTIC VALVE The aortic valve is mildly calcified. The aortic valve is trileaflet. No aortic regurgitation is present. There is no aortic valvular stenosis. There is no aortic valvular vegetation. MITRAL VALVE Mitral annular calcification is mild to moderate. There is no evidence of mitral valve prolapse. There is no mitral valve stenosis. There is no mitral valve regurgitation noted. TRICUSPID VALVE The tricuspid valve is normal in structure. There is trace to mild tricuspid regurgitation. Right ventricular systolic pressure is estimated at less than 30 mmHg. There is no pulmonary hypertension. There is no tricuspid valve prolapse or vegetation. There is no tricuspid valve stenosis. PULMONIC VALVE The pulmonic valve is not well visualized. There is no pulmonic valvular regurgitation. GREAT VESSELS The aortic root is normal in size. The IVC is normal in size and collapses >50% with inspiration. PERICARDIAL EFFUSION There is no pericardial effusion. There is no pleural effusion. <Conclusion> The left ventricle is normal size. Left ventricle systolic function is normal. The Ejection Fraction is >70%. The left ventricular diastolic function is abnormal. Transmitral Doppler flow pattern is Grade I-abnormal relaxation pattern. The right ventricle is normal size. The right ventricular systolic function is normal. The left atrium size is normal. The right atrium size is normal. There is trace to mild tricuspid regurgitation.
--- NOTE | 2017-02-22 05:23 | OP ---
DATE: 02/21/2017 PREOPERATIVE DIAGNOSIS: Intestinal obstruction. POSTOPERATIVE DIAGNOSES: Intestinal obstruction, secondary incarcerated right inguinal hernia (Escobedo's hernia). OPERATIONS CARRIED OUT: 1. Laparoscopy and reduction of incarcerated right inguinal hernia (Escobedo's hernia). 2. Repair of right inguinal hernia with PHS and ProLoop hernia systems. SURGEON: Varun Barrera Jr., MD VENDING MACHINE SERVICER: Dr. Blank. ANESTHESIOLOGIST: Dr. Ybarra. The patient is an older man in fairly good health admitted with abdominal pain, nausea, and vomiting. use of an NG tube. OPERATIVE FINDINGS: There was an incarcerated right inguinal hernia with Escobedo's hernia only partially, lumen of the bowel was incarcerated. This was reduced laparoscopically and then we carried down an open repair of the either groin with a PHS and a ProLoop mesh because of a large both internal indirect and direct hernia. In addition, there was a small inguinal hernia, which was not repaired. DESCRIPTION OF PROCEDURE: The patient was given general anesthesia and intravenous antibiotics. Venodyne boots were applied. Marina trocar was inserted via cut-down technique. Two additional 5-mm trocars were placed on left side. The hernia defect was identified. The bowel was reduced, which was a Escobedo's hernia. After we had done this, there were two large defects, both a direct and indirect hernia. We then went to the groin and used both PHS/Prolene hernia system as well as a ProLoop into the direct hernia space. After this had been secured in position, we then closed the groin wound and then we looked laparoscopically. There was a small amount of exposed mesh internally. We then closed the abdomen in standard fashion with closure devices. Closed the skin with subcuticular closure. The blood loss of the procedure was less than 100 mL. Varun Barrera Jr., MD cc: Dr. Cole
[2017-02-22 06:01] LABS: BASO % 0.1 % (0.0-2.0); EOS % 0.4 % (0.0-4.0); HEMATOCRIT 35.4 % (35.0-51.0); LYMPH # 0.8 K/uL (1.0-4.3); MEAN CELL VOLUME 94.9 fL (80.0-94.0); MEAN CORPUSCULAR HEMOGLOBIN 32.5 pg (27.0-31.0); MEAN CORPUSCULAR HGB CONC 34.2 g/dL (33.0-37.0); MEAN PLATELET VOLUME 9.6 fL (7.2-11.7); MONO # 0.8 K/uL (0.0-0.8); MONO % 9.5 % (0.0-10.0); PLATELET COUNT 89 K/uL (130-400); RED CELL DISTRIBUTION WIDTH 14.6 % (11.5-14.5); WHITE BLOOD COUNT 8.5 K/uL (4.8-10.8)
[2017-02-22 06:08] LABS: CHLORIDE 102 mmol/L (98-107); POTASSIUM 3.8 mmol/L (3.6-5.2); SODIUM 138 mmol/L (132-148)
[2017-02-22 06:10] LABS: BILIRUBIN,TOTAL 0.7 mg/dL (0.2-1.3); CARBON DIOXIDE 29 mmol/L (22-30); CHOLESTEROL 75 mg/dL (0-199); GFR AFRICAN-AMERICAN 44
[2017-02-22 06:11] LABS: ALKALINE PHOSPHATASE 43 U/L (38-126); ALT/SGPT 27 U/L (21-72); AST/SGOT 29 U/L (17-59); BLOOD UREA NITROGEN 60 mg/dL (9-20); CALCIUM 8.3 mg/dl (8.6-10.4); GLUCOSE,RANDOM 82 mg/dL (75-110); MAGNESIUM 1.8 mg/dL (1.6-2.3); PHOSPHOROUS 2.4 mg/dL (2.5-4.5)
[2017-02-22] MEDS: metroNIDAZOLE IV 500 mg/100 ml 250 MG in Premixed IV 1 EA IVPB SCH ×3 (06:31→21:46)
[2017-02-22 08:21] LABS: MYELOCYTE 2 % (0-0); NEUTROPHIL 34 % (50-75); TOTAL CELLS COUNTED 100
--- NOTE | 2017-02-22 11:20 | CP.PCM.PN ---
Subjective - Date & Time of Evaluation Date of Evaluation: 02/22/17 Time of Evaluation: 07:00 - Subjective Subjective: GENERAL SURGERY PROGRESS NOTE FOR DR. CARVER Patient seen and examined at bedside in the ICU. He is OOB to chair. He denies abdominal pain. Has not passed flatus or had a bowel movement yet since surgery. He remains NPO with NG tube in place. Objective - Vital Signs/Intake and Output Vital Signs (last 24 hours): Temp Pulse Resp BP Pulse Ox 98.7 F 95 H 25 H 137/72 99 02/22/17 08:00 02/22/17 10:53 02/22/17 10:53 02/22/17 11:00 02/22/17 10:43 Intake and Output: 02/22/17 02/22/17 06:59 18:59 Intake Total 1650 300 Output Total 970 110 Balance 680 190 - Medications Medications: Current Medications Heparin Sodium (Porcine) (Heparin) 5,000 units SC Q12 [facility] Last Admin: 02/21/17 22:40 Dose: Not Given Hydromorphone HCl (Dilaudid) 0.5 mg IVP Q4H PRN PRN Reason: Pain, moderate (4-7) Cefazolin Sodium 1,000 mg/ (Sodium Chloride) 100 mls @ 200 mls/hr IVPB Q12H [facility] Last Admin: 02/22/17 09:44 Dose: 200 mls/hr Metronidazole 250 mg/ (Miscellaneous) 50 mls @ 100 mls/hr IVPB Q8 [facility] Last Admin: 02/22/17 06:31 Dose: 100 mls/hr Lactated Ringer's (Lactated Ringer's) 1,000 mls @ 150 mls/hr IV .Q6H40M [facility] Last Admin: 02/22/17 06:32 Dose: 150 mls/hr Ondansetron HCl (Zofran Inj) 4 mg IVP Q4H PRN PRN Reason: Nausea/Vomiting Last Admin: 02/21/17 11:48 Dose: 4 mg Pantoprazole Sodium (Protonix Inj) 40 mg IVP DAILY [facility] Last Admin: 02/22/17 09:43 Dose: 40 mg Rosuvastatin Calcium (Crestor) 5 mg PO HS [facility] Last Admin: 02/21/17 22:40 Dose: Not Given - Labs Labs: 02/22/17 05:51 02/22/17 05:51 PT 12.2 SECONDS (9.7-12.2) 02/20/17 10:07 INR 1.1 02/20/17 10:07 APTT 23 SECONDS (21-34) 02/20/17 10:07 - Constitutional Appears: Non-toxic, No Acute Distress - Head Exam Head Exam: ATRAUMATIC, NORMAL INSPECTION - Respiratory Exam Respiratory Exam: NORMAL BREATHING PATTERN. absent: Respiratory Distress - Cardiovascular Exam Cardiovascular Exam: +S1, +S2 - GI/Abdominal Exam GI & Abdominal Exam: Soft, Tenderness (mild tenderness around incision sites). absent: Distended, Firm, Guarding, Rigid, Rebound Additional comments: Dermabond in place over laparoscopic incision sites and RLQ incision - Neurological Exam Neurological Exam: Alert, Awake, Oriented x3 - Psychiatric Exam Psychiatric exam: Normal Affect, Normal Mood - Skin Skin Exam: Dry, Normal Color, Warm Assessment and Plan - Assessment and Plan (Free Text) Assessment: 77yo M with incarcerated right inguinal hernia s/p Diagnostic laparoscopy w. reduction of incarcerated bowel and open repair of R inguinal hernia POD#1 - Afebrile, VSS - Hgb 12.1, no leukocytosis, Thrombocytopenia 89 trending down - Will monitor for return of bowel function - Clear from surgical standpoint for transfer out of ICU - Physical therapy started today, patient ambulated in the halls - NG tube clamped this morning, may remove around noon after checking for residuals - Once NG tube is removed, may have CLD for lunch - Discussed plan with Dr. Bruce Franklin PGY-3
--- NOTE | 2017-02-22 11:49 | CP.PCM.PN ---
Subjective - Date & Time of Evaluation Date of Evaluation: 02/22/17 Time of Evaluation: 11:46 - Subjective Subjective: events noted pt is s/p abdominal surgery for sbo / incarcerated hernia NGT out, eating jello. Denies any abd pain sob chest pain dizziness headache rash fevers chills urine output noted, improving Objective - Vital Signs/Intake and Output Vital Signs (last 24 hours): Temp Pulse Resp BP Pulse Ox 98.7 F 95 H 25 H 137/72 99 02/22/17 08:00 02/22/17 10:53 02/22/17 10:53 02/22/17 11:00 02/22/17 10:43 Intake and Output: 02/22/17 02/22/17 06:59 18:59 Intake Total 1650 300 Output Total 970 110 Balance 680 190 - Medications Medications: Current Medications Heparin Sodium (Porcine) (Heparin) 5,000 units SC Q12 [facility] Last Admin: 02/21/17 22:40 Dose: Not Given Hydromorphone HCl (Dilaudid) 0.5 mg IVP Q4H PRN PRN Reason: Pain, moderate (4-7) Cefazolin Sodium 1,000 mg/ (Sodium Chloride) 100 mls @ 200 mls/hr IVPB Q12H [facility] Last Admin: 02/22/17 09:44 Dose: 200 mls/hr Metronidazole 250 mg/ (Miscellaneous) 50 mls @ 100 mls/hr IVPB Q8 [facility] Last Admin: 02/22/17 06:31 Dose: 100 mls/hr Lactated Ringer's (Lactated Ringer's) 1,000 mls @ 150 mls/hr IV .Q6H40M [facility] Last Admin: 02/22/17 06:32 Dose: 150 mls/hr Ondansetron HCl (Zofran Inj) 4 mg IVP Q4H PRN PRN Reason: Nausea/Vomiting Last Admin: 02/21/17 11:48 Dose: 4 mg Pantoprazole Sodium (Protonix Inj) 40 mg IVP DAILY [facility] Last Admin: 02/22/17 09:43 Dose: 40 mg Rosuvastatin Calcium (Crestor) 5 mg PO HS [facility] Last Admin: 02/21/17 22:40 Dose: Not Given - Labs Labs: 02/22/17 05:51 02/22/17 05:51 PT 12.2 SECONDS (9.7-12.2) 02/20/17 10:07 INR 1.1 02/20/17 10:07 APTT 23 SECONDS (21-34) 02/20/17 10:07 - Constitutional Appears: Non-toxic, No Acute Distress - Head Exam Head Exam: NORMAL INSPECTION - Eye Exam Eye Exam: Normal appearance - ENT Exam ENT Exam: Mucous Membranes Moist, Normal Exam - Neck Exam Neck Exam: Normal Inspection - Respiratory Exam Respiratory Exam: Decreased Breath Sounds, Clear to Ausculation Bilateral, NORMAL BREATHING PATTERN - Cardiovascular Exam Cardiovascular Exam: Tachycardia, REGULAR RHYTHM - GI/Abdominal Exam GI & Abdominal Exam: Distended (dressing in place), Soft - Extremities Exam Extremities Exam: Normal Inspection Assessment and Plan (1) JAVIER (acute kidney injury) Status: Acute (2) Acute on chronic renal failure Status: Acute (3) Hypertension Status: Acute (4) Hypokalemia Status: Acute (5) Small bowel obstruction Status: Acute - Assessment and Plan (Free Text) Assessment: Renal function at baseline electrolytes acceptable maintain iv fluids, recommend lower rate to 70cc/hr surgical management
--- NOTE | 2017-02-22 13:50 | CP.CCUPN ---
<Prudencio Barber E - Last Filed: 02/22/17 13:45> CCU Subjective - Physician Review Subjective (Free Text): Patient was seen and examined at bedside. Patient is s/p diagnostic lapatoscopy w. reduction of incarcerated bowel and open repair of R inguinal hernia POD #1. Patient reports that he is doing well. Patient denies chest pain, SOB, palpitations, fever, chills, abdominal pain and nausea and vomiting. Patient is out of bed to chair and ambulating with the assistance of physical therapy. CCU Objective - Vital Signs / Intake & Output Vital Signs (Last 4 hours): Vital Signs Pulse Resp BP Pulse Ox 02/22/17 11:00 137/72 02/22/17 10:53 95 H 25 H 02/22/17 10:43 91 H 20 137/72 99 02/22/17 10:00 102 H 14 99 Intake and Output (Last 8hrs): Intake & Output 02/21/17 02/22/17 02/22/17 22:59 06:59 14:59 Intake Total 1100 1200 700 Output Total 1025 495 410 Balance 75 705 290 Weight 138 lb 14.259 oz Intake: Intake, IV Amount 1000 1200 700 Right Antecubital 1000 1200 700 Oral 100 0 0 Output: Gastric Amount 230 25 75 Nares 230 25 75 Urine 795 470 335 Urethral (Brownlee) 475 470 335 Other: # Voids Urine, Voided 0 0 # Bowel Movements 0 0 - Physical Exam Head: Positive for: Atraumatic Extroacular Muscles: Positive for: EOMI Mouth: Positive for: Moist Mucous Membranes Respiratory/Chest: Positive for: Clear to Auscultation, Good Air Exchange. Negative for: Respiratory Distress, Accessory Muscle Use Cardiovascular: Positive for: Regular Rate and Rhythm, Normal S1, S2 Abdomen: Positive for: Normal Bowel Sounds, Other (NG tube in place). Negative for: Tenderness, Distention, Peritoneal Signs Upper Extremity: Negative for: Edema Lower Extremity: Negative for: Edema Neurological: Positive for: GCS=15, Speech Normal Skin: Positive for: Warm, Normal Color Psychiatric: Positive for: Alert, Oriented x 3 - Medications Active Medications: Active Medications Generic Name Dose Route Start Last Admin Trade Name Freq PRN Reason Stop Dose Admin Heparin Sodium (Porcine) 5,000 units 02/20/17 22:00 02/21/17 22:40 Heparin SC Not Given Q12 [facility] Hydromorphone HCl 0.5 mg 02/21/17 20:02 Dilaudid IVP Q4H PRN Pain, moderate (4-7) Cefazolin Sodium 1,000 mg/ 100 mls @ 200 mls/hr 02/20/17 22:00 02/22/17 09:44 Sodium Chloride IVPB 200 mls/hr Q12H [facility] Administration Metronidazole 250 mg/ 50 mls @ 100 mls/hr 02/21/17 14:00 02/22/17 06:31 Miscellaneous IVPB 100 mls/hr Q8 [facility] Administration Lactated Ringer's 1,000 mls @ 150 mls/hr 02/21/17 09:55 02/22/17 12:45 Lactated Ringer's IV Not Given .Q6H40M [facility] Ondansetron HCl 4 mg 02/20/17 19:56 02/21/17 11:48 Zofran Inj IVP 4 mg Q4H PRN Administration Nausea/Vomiting Pantoprazole Sodium 40 mg 02/21/17 10:00 02/22/17 09:43 Protonix Inj IVP 40 mg DAILY [facility] Administration Rosuvastatin Calcium 5 mg 02/21/17 22:00 02/21/17 22:40 Crestor PO Not Given HS [facility] - Patient Studies Lab Studies: Microbiology Studies 02/21/17 09:30 Blood Culture - Preliminary Blood-Venous NO GROWTH AFTER 24 HOURS 02/21/17 01:00 Blood Culture - Preliminary Blood-Venous NO GROWTH AFTER 24 HOURS 02/21/17 14:45 Urine Culture - Final Urine,Clean Catch No Growth (<1,000 CFU/ML) Lab Studies 02/22/17 02/22/17 02/21/17 Range/Units 05:51 05:51 20:59 WBC 8.5 (4.8-10.8) K/uL RBC 3.73 L (4.40-5.90) Mil/uL Hgb 12.1 (12.0-18.0) g/dL Hct 35.4 (35.0-51.0) % MCV 94.9 H (80.0-94.0) fL MCH 32.5 H (27.0-31.0) pg MCHC 34.2 (33.0-37.0) g/dL RDW 14.6 H (11.5-14.5) % Plt Count 89 L (130-400) K/uL MPV 9.6 (7.2-11.7) fL Neut % (Auto) 81.0 H (50.0-75.0) % Lymph % (Auto) 9.0 L (20.0-40.0) % Story % (Auto) 9.5 (0.0-10.0) % Eos % (Auto) 0.4 (0.0-4.0) % Baso % (Auto) 0.1 (0.0-2.0) % Neut # 6.9 (1.8-7.0) K/uL Lymph # 0.8 L (1.0-4.3) K/uL Story # 0.8 (0.0-0.8) K/uL Eos # 0.0 (0.0-0.7) K/uL Baso # 0.0 (0.0-0.2) K/uL Neutrophils % (Manual) 34 L (50-75) % Band Neutrophils % 42 H* (0-2) % Lymphocytes % (Manual) 10 L (20-40) % Monocytes % (Manual) 12 H (0-10) % Metamyelocytes % (0-0) % Myelocytes % 2 H (0-0) % Platelet Estimate Decreased L (NORMAL) RBC Morphology Normal Sodium 138 135 (132-148) mmol/L Potassium 3.8 3.7 (3.6-5.2) mmol/L Chloride 102 100 (98-107) mmol/L Carbon Dioxide 29 24 (22-30) mmol/L Anion Gap 11 14 (10-20) BUN 60 H 69 H (9-20) mg/dL Creatinine 1.8 H 1.8 H (0.8-1.5) mg/dL Est GFR ( Amer) 44 44 Est GFR (Non-Af Amer) 37 37 Random Glucose 82 110 (75-110) mg/dL Calcium 8.3 L 8.1 L (8.6-10.4) mg/dl Phosphorus 2.4 L 3.0 (2.5-4.5) mg/dL Magnesium 1.8 1.8 (1.6-2.3) mg/dL Total Bilirubin 0.7 0.7 (0.2-1.3) mg/dL AST 29 46 (17-59) U/L ALT 27 32 (21-72) U/L Alkaline Phosphatase 43 48 (38-126) U/L Total Creatine Kinase 95 (55-170) U/L CK-MB (Mass) 4.55 H (0.0-3.38) ng/mL Troponin I, Quant 0.2050 H* (0.00-0.120) ng/mL Total Protein 5.0 L 5.2 L (6.3-8.3) g/dL Albumin 2.5 L 2.7 L (3.5-5.0) g/dL Globulin 2.5 2.5 (2.2-3.9) gm/dL Albumin/Globulin Ratio 1.0 1.1 (1.0-2.1) Triglycerides 64 (0-149) mg/dL Cholesterol 75 (0-199) mg/dL LDL Cholesterol Direct < 30 (0-129) mg/dL HDL Cholesterol 39 (30-70) mg/dL Procalcitonin (0.19-0.49) NG/ML 02/21/17 02/21/17 Range/Units 20:59 20:59 WBC 8.4 D (4.8-10.8) K/uL RBC 4.14 L (4.40-5.90) Mil/uL Hgb 13.2 D (12.0-18.0) g/dL Hct 39.7 (35.0-51.0) % MCV 96.0 H (80.0-94.0) fL MCH 31.8 H (27.0-31.0) pg MCHC 33.2 (33.0-37.0) g/dL RDW 14.6 H (11.5-14.5) % Plt Count 97 L D (130-400) K/uL MPV 9.8 (7.2-11.7) fL Neut % (Auto) 85.4 H (50.0-75.0) % Lymph % (Auto) 8.4 L (20.0-40.0) % Story % (Auto) 6.0 (0.0-10.0) % Eos % (Auto) 0.1 (0.0-4.0) % Baso % (Auto) 0.1 (0.0-2.0) % Neut # 7.2 H (1.8-7.0) K/uL Lymph # 0.7 L (1.0-4.3) K/uL Story # 0.5 (0.0-0.8) K/uL Eos # 0.0 (0.0-0.7) K/uL Baso # 0.0 (0.0-0.2) K/uL Neutrophils % (Manual) 36 L (50-75) % Band Neutrophils % 44 H* (0-2) % Lymphocytes % (Manual) 5 L (20-40) % Monocytes % (Manual) 10 (0-10) % Metamyelocytes % 2 H (0-0) % Myelocytes % 3 H (0-0) % Platelet Estimate Decreased L (NORMAL) RBC Morphology Normal Sodium (132-148) mmol/L Potassium (3.6-5.2) mmol/L Chloride (98-107) mmol/L Carbon Dioxide (22-30) mmol/L Anion Gap (10-20) BUN (9-20) mg/dL Creatinine (0.8-1.5) mg/dL Est GFR ( Amer) Est GFR (Non-Af Amer) Random Glucose (75-110) mg/dL Calcium (8.6-10.4) mg/dl Phosphorus (2.5-4.5) mg/dL Magnesium (1.6-2.3) mg/dL Total Bilirubin (0.2-1.3) mg/dL AST (17-59) U/L ALT (21-72) U/L Alkaline Phosphatase (38-126) U/L Total Creatine Kinase (55-170) U/L CK-MB (Mass) (0.0-3.38) ng/mL Troponin I, Quant (0.00-0.120) ng/mL Total Protein (6.3-8.3) g/dL Albumin (3.5-5.0) g/dL Globulin (2.2-3.9) gm/dL Albumin/Globulin Ratio (1.0-2.1) Triglycerides (0-149) mg/dL Cholesterol (0-199) mg/dL LDL Cholesterol Direct (0-129) mg/dL HDL Cholesterol (30-70) mg/dL Procalcitonin 5.20 H (0.19-0.49) NG/ML Laboratory Results - last 24 hr 02/21/17 02/21/17 02/21/17 20:59 20:59 20:59 WBC 8.4 D RBC 4.14 L Hgb 13.2 D Hct 39.7 MCV 96.0 H MCH 31.8 H MCHC 33.2 RDW 14.6 H Plt Count 97 L D MPV 9.8 Neut % (Auto) 85.4 H Lymph % (Auto) 8.4 L Story % (Auto) 6.0 Eos % (Auto) 0.1 Baso % (Auto) 0.1 Neut # 7.2 H Lymph # 0.7 L Story # 0.5 Eos # 0.0 Baso # 0.0 Neutrophils % (Manual) 36 L Band Neutrophils % 44 H* Lymphocytes % (Manual) 5 L Monocytes % (Manual) 10 Metamyelocytes % 2 H Myelocytes % 3 H Platelet Estimate Decreased L RBC Morphology Normal Sodium 135 Potassium 3.7 Chloride 100 Carbon Dioxide 24 Anion Gap 14 BUN 69 H Creatinine 1.8 H Est GFR ( Amer) 44 Est GFR (Non-Af Amer) 37 Random Glucose 110 Calcium 8.1 L Phosphorus 3.0 Magnesium 1.8 Total Bilirubin 0.7 AST 46 ALT 32 Alkaline Phosphatase 48 Total Creatine Kinase 95 CK-MB (Mass) 4.55 H Troponin I, Quant 0.2050 H* Total Protein 5.2 L Albumin 2.7 L Globulin 2.5 Albumin/Globulin Ratio 1.1 Triglycerides Cholesterol LDL Cholesterol Direct HDL Cholesterol Procalcitonin 5.20 H 02/22/17 02/22/17 05:51 05:51 WBC 8.5 RBC 3.73 L Hgb 12.1 Hct 35.4 MCV 94.9 H MCH 32.5 H MCHC 34.2 RDW 14.6 H Plt Count 89 L MPV 9.6 Neut % (Auto) 81.0 H Lymph % (Auto) 9.0 L Story % (Auto) 9.5 Eos % (Auto) 0.4 Baso % (Auto) 0.1 Neut # 6.9 Lymph # 0.8 L Story # 0.8 Eos # 0.0 Baso # 0.0 Neutrophils % (Manual) 34 L Band Neutrophils % 42 H* Lymphocytes % (Manual) 10 L Monocytes % (Manual) 12 H Metamyelocytes % Myelocytes % 2 H Platelet Estimate Decreased L RBC Morphology Normal Sodium 138 Potassium 3.8 Chloride 102 Carbon Dioxide 29 Anion Gap 11 BUN 60 H Creatinine 1.8 H Est GFR ( Amer) 44 Est GFR (Non-Af Amer) 37 Random Glucose 82 Calcium 8.3 L Phosphorus 2.4 L Magnesium 1.8 Total Bilirubin 0.7 AST 29 ALT 27 Alkaline Phosphatase 43 Total Creatine Kinase CK-MB (Mass) Troponin I, Quant Total Protein 5.0 L Albumin 2.5 L Globulin 2.5 Albumin/Globulin Ratio 1.0 Triglycerides 64 Cholesterol 75 LDL Cholesterol Direct < 30 HDL Cholesterol 39 Procalcitonin Review of Systems - Constitutional Constitutional: absent: Fever, Chills, Weakness - EENT Eyes: absent: Blurred Vision, Change in Vision Ears: absent: Dizziness - Cardiovascular Cardiovascular: absent: Chest Pain, Diaphoresis, Dyspnea, Lightheadedness, Palpitations - Respiratory Respiratory: absent: Dyspnea - Gastrointestinal Gastrointestinal: absent: Abdominal Pain, Cramping, Nausea, Vomiting - Neurological Neurological: absent: Dizziness, Headaches, Syncope, Tingling, Weakness - Endocrine Endocrine: absent: Fatigue, Palpitations Critical Care Progress Note - Nutrition Nutrition: Nutrition Category Date Time Status Liquid Diet [DIET] Diets 02/22/17 Lunch Active Assessment/Plan - Assessment and Plan (Free Text) Assessment: 77-year-old male with past medical history of hypertension, chronic renal insufficiency, mild, proteinuria came to the emergency room with the sudden onset of abdominal pain and admitted with consideration for intestinal obstruction, s/p diagnostic lapatoscopy w. reduction of incarcerated bowel and open repair of R inguinal hernia POD #1. Today: Plan: To transfer to medical surgical floor Plan: Neuro: Alert, awake and oriented Cardio: Hx of HTN Home medication: * Metoprolol ER- HCTZ 12.5mg PO daily GI: Bowel obstruction; s/p diagnostic lapatoscopy w. reduction of incarcerated bowel and open repair of R inguinal hernia POD #1. General surgery, Dr. Barrera---> Help appreciated Abdomen X-ray (02/21/17):Normal bowel gas pattern. Abdomen/Pelvis CT (02/20/17): Findings consistent with high-grade bowel obstruction. The transitional point is likely at the right lower abdomen/ right pelvis. Medication/Management: * NPO * NG tube with significant drainage * Cefazolin 1,000mg IVPB Q12H * Metronidazole 250mg IVPB Q8H * Dilaudid 0.5mg IVP Q4H PRN for pain control * Zofran 4mg IVP Q4H prn Endo: No acute issues Renal: Hypokalemia, hx of chronic renal insufficiency; mildly elevated BUN/Cr Renal US ( 02/20/17): Echogenic kidneys suggestive of medical renal disease. Commercial Portfolio Manager: Dr. Lawrence on board---> Help appreciated Medication/Management: * Hypokalemia resolved * Aggressive hydration: Lactate ringer @150mls/hr ID: Bandemia Medication/Management: * Lactate ringer @150mls/hr * Cefazolin 1,000mg IVPB Q12H Prophylaxis: DVT: Ambulating, out of bed to chair, heparin 5,000 units SC Q12H GI: Protonix 40mg IVP daily Plan: To transfer to medical surgical floor <Vamsi Orlando P - Last Filed: 02/22/17 16:24> CCU Objective - Vital Signs / Intake & Output Vital Signs (Last 4 hours): Vital Signs Temp Pulse Resp BP Pulse Ox 02/22/17 16:00 97.4 F L 97 H 22 91 L 02/22/17 15:43 87 23 129/68 92 L 02/22/17 15:00 93 H 23 88 L 02/22/17 14:43 100 H 25 H 132/73 91 L 02/22/17 14:00 113 H 21 89 L 02/22/17 13:43 89 19 123/66 92 L 02/22/17 13:00 110 H 25 H 92 L 02/22/17 12:43 99 H 24 118/66 92 L Intake and Output (Last 8hrs): Intake & Output 02/22/17 02/22/17 02/22/17 06:59 14:59 22:59 Intake Total 1200 1350 520 Output Total 495 485 300 Balance 705 865 220 Weight 138 lb 14.259 oz Intake: Intake, IV Amount 1200 1150 300 Right Antecubital 1200 1150 300 Oral 0 200 220 Output: Gastric Amount 25 150 Nares 25 150 Urine 470 335 300 Urethral (Brownlee) 470 335 Urine, Voided 300 Other: # Voids Urine, Voided 0 0 # Bowel Movements 0 0 - Medications Active Medications: Active Medications Generic Name Dose Route Start Last Admin Trade Name Freq PRN Reason Stop Dose Admin Heparin Sodium (Porcine) 5,000 units 02/20/17 22:00 02/21/17 22:40 Heparin SC Not Given Q12 [facility] Hydromorphone HCl 0.5 mg 02/21/17 20:02 Dilaudid IVP Q4H PRN Pain, moderate (4-7) Cefazolin Sodium 1,000 mg/ 100 mls @ 200 mls/hr 02/20/17 22:00 02/22/17 09:44 Sodium Chloride IVPB 200 mls/hr Q12H [facility] Administration Metronidazole 250 mg/ 50 mls @ 100 mls/hr 02/21/17 14:00 02/22/17 14:05 Miscellaneous IVPB 100 mls/hr Q8 [facility] Administration Lactated Ringer's 1,000 mls @ 150 mls/hr 02/21/17 09:55 02/22/17 12:45 Lactated Ringer's IV Not Given .Q6H40M [facility] Ondansetron HCl 4 mg 02/20/17 19:56 02/21/17 11:48 Zofran Inj IVP 4 mg Q4H PRN Administration Nausea/Vomiting Pantoprazole Sodium 40 mg 02/21/17 10:00 02/22/17 09:43 Protonix Inj IVP 40 mg DAILY [facility] Administration Rosuvastatin Calcium 5 mg 02/21/17 22:00 02/21/17 22:40 Crestor PO Not Given HS [facility] - Patient Studies Lab Studies: Microbiology Studies 02/21/17 09:30 Blood Culture - Preliminary Blood-Venous NO GROWTH AFTER 24 HOURS 02/21/17 01:00 Blood Culture - Preliminary Blood-Venous NO GROWTH AFTER 24 HOURS 02/21/17 14:45 Urine Culture - Final Urine,Clean Catch No Growth (<1,000 CFU/ML) Lab Studies 02/22/17 02/22/17 02/21/17 Range/Units 05:51 05:51 20:59 WBC 8.5 (4.8-10.8) K/uL RBC 3.73 L (4.40-5.90) Mil/uL Hgb 12.1 (12.0-18.0) g/dL Hct 35.4 (35.0-51.0) % MCV 94.9 H (80.0-94.0) fL MCH 32.5 H (27.0-31.0) pg MCHC 34.2 (33.0-37.0) g/dL RDW 14.6 H (11.5-14.5) % Plt Count 89 L (130-400) K/uL MPV 9.6 (7.2-11.7) fL Neut % (Auto) 81.0 H (50.0-75.0) % Lymph % (Auto) 9.0 L (20.0-40.0) % Story % (Auto) 9.5 (0.0-10.0) % Eos % (Auto) 0.4 (0.0-4.0) % Baso % (Auto) 0.1 (0.0-2.0) % Neut # 6.9 (1.8-7.0) K/uL Lymph # 0.8 L (1.0-4.3) K/uL Story # 0.8 (0.0-0.8) K/uL Eos # 0.0 (0.0-0.7) K/uL Baso # 0.0 (0.0-0.2) K/uL Neutrophils % (Manual) 34 L (50-75) % Band Neutrophils % 42 H* (0-2) % Lymphocytes % (Manual) 10 L (20-40) % Monocytes % (Manual) 12 H (0-10) % Metamyelocytes % (0-0) % Myelocytes % 2 H (0-0) % Platelet Estimate Decreased L (NORMAL) RBC Morphology Normal Sodium 138 135 (132-148) mmol/L Potassium 3.8 3.7 (3.6-5.2) mmol/L Chloride 102 100 (98-107) mmol/L Carbon Dioxide 29 24 (22-30) mmol/L Anion Gap 11 14 (10-20) BUN 60 H 69 H (9-20) mg/dL Creatinine 1.8 H 1.8 H (0.8-1.5) mg/dL Est GFR ( Amer) 44 44 Est GFR (Non-Af Amer) 37 37 Random Glucose 82 110 (75-110) mg/dL Calcium 8.3 L 8.1 L (8.6-10.4) mg/dl Phosphorus 2.4 L 3.0 (2.5-4.5) mg/dL Magnesium 1.8 1.8 (1.6-2.3) mg/dL Total Bilirubin 0.7 0.7 (0.2-1.3) mg/dL AST 29 46 (17-59) U/L ALT 27 32 (21-72) U/L Alkaline Phosphatase 43 48 (38-126) U/L Total Creatine Kinase 95 (55-170) U/L CK-MB (Mass) 4.55 H (0.0-3.38) ng/mL Troponin I, Quant 0.2050 H* (0.00-0.120) ng/mL Total Protein 5.0 L 5.2 L (6.3-8.3) g/dL Albumin 2.5 L 2.7 L (3.5-5.0) g/dL Globulin 2.5 2.5 (2.2-3.9) gm/dL Albumin/Globulin Ratio 1.0 1.1 (1.0-2.1) Triglycerides 64 (0-149) mg/dL Cholesterol 75 (0-199) mg/dL LDL Cholesterol Direct < 30 (0-129) mg/dL HDL Cholesterol 39 (30-70) mg/dL Procalcitonin (0.19-0.49) NG/ML 02/21/17 02/21/17 Range/Units 20:59 20:59 WBC 8.4 D (4.8-10.8) K/uL RBC 4.14 L (4.40-5.90) Mil/uL Hgb 13.2 D (12.0-18.0) g/dL Hct 39.7 (35.0-51.0) % MCV 96.0 H (80.0-94.0) fL MCH 31.8 H (27.0-31.0) pg MCHC 33.2 (33.0-37.0) g/dL RDW 14.6 H (11.5-14.5) % Plt Count 97 L D (130-400) K/uL MPV 9.8 (7.2-11.7) fL Neut % (Auto) 85.4 H (50.0-75.0) % Lymph % (Auto) 8.4 L (20.0-40.0) % Story % (Auto) 6.0 (0.0-10.0) % Eos % (Auto) 0.1 (0.0-4.0) % Baso % (Auto) 0.1 (0.0-2.0) % Neut # 7.2 H (1.8-7.0) K/uL Lymph # 0.7 L (1.0-4.3) K/uL Story # 0.5 (0.0-0.8) K/uL Eos # 0.0 (0.0-0.7) K/uL Baso # 0.0 (0.0-0.2) K/uL Neutrophils % (Manual) 36 L (50-75) % Band Neutrophils % 44 H* (0-2) % Lymphocytes % (Manual) 5 L (20-40) % Monocytes % (Manual) 10 (0-10) % Metamyelocytes % 2 H (0-0) % Myelocytes % 3 H (0-0) % Platelet Estimate Decreased L (NORMAL) RBC Morphology Normal Sodium (132-148) mmol/L Potassium (3.6-5.2) mmol/L Chloride (98-107) mmol/L Carbon Dioxide (22-30) mmol/L Anion Gap (10-20) BUN (9-20) mg/dL Creatinine (0.8-1.5) mg/dL Est GFR ( Amer) Est GFR (Non-Af Amer) Random Glucose (75-110) mg/dL Calcium (8.6-10.4) mg/dl Phosphorus (2.5-4.5) mg/dL Magnesium (1.6-2.3) mg/dL Total Bilirubin (0.2-1.3) mg/dL AST (17-59) U/L ALT (21-72) U/L Alkaline Phosphatase (38-126) U/L Total Creatine Kinase (55-170) U/L CK-MB (Mass) (0.0-3.38) ng/mL Troponin I, Quant (0.00-0.120) ng/mL Total Protein (6.3-8.3) g/dL Albumin (3.5-5.0) g/dL Globulin (2.2-3.9) gm/dL Albumin/Globulin Ratio (1.0-2.1) Triglycerides (0-149) mg/dL Cholesterol (0-199) mg/dL LDL Cholesterol Direct (0-129) mg/dL HDL Cholesterol (30-70) mg/dL Procalcitonin 5.20 H (0.19-0.49) NG/ML Laboratory Results - last 24 hr 02/21/17 02/21/17 02/21/17 20:59 20:59 20:59 WBC 8.4 D RBC 4.14 L Hgb 13.2 D Hct 39.7 MCV 96.0 H MCH 31.8 H MCHC 33.2 RDW 14.6 H Plt Count 97 L D MPV 9.8 Neut % (Auto) 85.4 H Lymph % (Auto) 8.4 L Story % (Auto) 6.0 Eos % (Auto) 0.1 Baso % (Auto) 0.1 Neut # 7.2 H Lymph # 0.7 L Story # 0.5 Eos # 0.0 Baso # 0.0 Neutrophils % (Manual) 36 L Band Neutrophils % 44 H* Lymphocytes % (Manual) 5 L Monocytes % (Manual) 10 Metamyelocytes % 2 H Myelocytes % 3 H Platelet Estimate Decreased L RBC Morphology Normal Sodium 135 Potassium 3.7 Chloride 100 Carbon Dioxide 24 Anion Gap 14 BUN 69 H Creatinine 1.8 H Est GFR ( Amer) 44 Est GFR (Non-Af Amer) 37 Random Glucose 110 Calcium 8.1 L Phosphorus 3.0 Magnesium 1.8 Total Bilirubin 0.7 AST 46 ALT 32 Alkaline Phosphatase 48 Total Creatine Kinase 95 CK-MB (Mass) 4.55 H Troponin I, Quant 0.2050 H* Total Protein 5.2 L Albumin 2.7 L Globulin 2.5 Albumin/Globulin Ratio 1.1 Triglycerides Cholesterol LDL Cholesterol Direct HDL Cholesterol Procalcitonin 5.20 H 02/22/17 02/22/17 05:51 05:51 WBC 8.5 RBC 3.73 L Hgb 12.1 Hct 35.4 MCV 94.9 H MCH 32.5 H MCHC 34.2 RDW 14.6 H Plt Count 89 L MPV 9.6 Neut % (Auto) 81.0 H Lymph % (Auto) 9.0 L Story % (Auto) 9.5 Eos % (Auto) 0.4 Baso % (Auto) 0.1 Neut # 6.9 Lymph # 0.8 L Story # 0.8 Eos # 0.0 Baso # 0.0 Neutrophils % (Manual) 34 L Band Neutrophils % 42 H* Lymphocytes % (Manual) 10 L Monocytes % (Manual) 12 H Metamyelocytes % Myelocytes % 2 H Platelet Estimate Decreased L RBC Morphology Normal Sodium 138 Potassium 3.8 Chloride 102 Carbon Dioxide 29 Anion Gap 11 BUN 60 H Creatinine 1.8 H Est GFR ( Amer) 44 Est GFR (Non-Af Amer) 37 Random Glucose 82 Calcium 8.3 L Phosphorus 2.4 L Magnesium 1.8 Total Bilirubin 0.7 AST 29 ALT 27 Alkaline Phosphatase 43 Total Creatine Kinase CK-MB (Mass) Troponin I, Quant Total Protein 5.0 L Albumin 2.5 L Globulin 2.5 Albumin/Globulin Ratio 1.0 Triglycerides 64 Cholesterol 75 LDL Cholesterol Direct < 30 HDL Cholesterol 39 Procalcitonin Critical Care Progress Note - Nutrition Nutrition: Nutrition Category Date Time Status Liquid Diet [DIET] Diets 02/22/17 Lunch Active Attending/Attestation - Attestation I have personally seen and examined this patient.: Yes I have fully participated in the care of the patient.: Yes I have reviewed all pertinent clinical information: Yes Notes (Text): Patient awake, slight pain at surgical site, ng removed and started diet, nephrology requested fluids only for maintenance level, with improvement of renal function to the baseline. Chest Clear CVS regular PA soft, incision area, clean no drainage ext no edema [employer] awake oriented x3 Assessment/Plan SBO due to incarcerated hernia s/p surg, now tolerating deit Renal insufficiency, improved renal function to base line Elevated troponin likely form renal insufficiency further w/u as per the primary team Will transfer patient pt the floor.
[2017-02-22] MEDS ORDERED: Potassium Chloride 20 mEq/15 ml LIQ UD PO ONE (17:46)
--- NOTE | 2017-02-22 19:26 | CP.PCM.PN ---
Subjective - Date & Time of Evaluation Date of Evaluation: 02/22/17 Time of Evaluation: 19:26 - Subjective Subjective: Patient underwent exploratory laparotomy. Found to have small bowel obstruction secondary to localized hernia. Patient is currently tolerating the liquid diet. Awake and responding. Improvement in the renal function noted. Currently on IV fluid Today, Chest bilateral good air entry no wheezing or rales noted at left costal nontender abdomen. Patient has a mild tachycardia Doing well. Will be transferred to the floor. Continue the current treatment. Will follow the patient. Final diagnosis hypertension Acute renal insufficiency Acute intestinal obstruction, status post surgery Objective - Vital Signs/Intake and Output Vital Signs (last 24 hours): Temp Pulse Resp BP Pulse Ox 97.4 F L 115 H 26 H 131/76 94 L 02/22/17 16:00 02/22/17 19:00 02/22/17 19:00 02/22/17 18:43 02/22/17 19:00 Intake and Output: 02/22/17 02/23/17 18:59 06:59 Intake Total 2160 170 Output Total 785 0 Balance 1375 170 - Medications Medications: Current Medications Heparin Sodium (Porcine) (Heparin) 5,000 units SC Q12 [facility] Last Admin: 02/21/17 22:40 Dose: Not Given Hydromorphone HCl (Dilaudid) 0.5 mg IVP Q4H PRN PRN Reason: Pain, moderate (4-7) Cefazolin Sodium 1,000 mg/ (Sodium Chloride) 100 mls @ 200 mls/hr IVPB Q12H [facility] Last Admin: 02/22/17 09:44 Dose: 200 mls/hr Metronidazole 250 mg/ (Miscellaneous) 50 mls @ 100 mls/hr IVPB Q8 [facility] Last Admin: 02/22/17 14:05 Dose: 100 mls/hr Lactated Ringer's (Lactated Ringer's) 1,000 mls @ 70 mls/hr IV .[id number] [facility] Last Admin: 02/22/17 17:10 Dose: 70 mls/hr Ondansetron HCl (Zofran Inj) 4 mg IVP Q4H PRN PRN Reason: Nausea/Vomiting Last Admin: 02/21/17 11:48 Dose: 4 mg Pantoprazole Sodium (Protonix Inj) 40 mg IVP DAILY [facility] Last Admin: 02/22/17 09:43 Dose: 40 mg Rosuvastatin Calcium (Crestor) 5 mg PO HS [facility] Last Admin: 02/21/17 22:40 Dose: Not Given - Labs Labs: 02/22/17 05:51 02/22/17 05:51 PT 12.2 SECONDS (9.7-12.2) 02/20/17 10:07 INR 1.1 02/20/17 10:07 APTT 23 SECONDS (21-34) 02/20/17 10:07
--- NOTE | 2017-02-22 22:46 | CP.PCM.PN ---
Subjective - Date & Time of Evaluation Date of Evaluation: 02/22/17 Time of Evaluation: 10:00 - Subjective Subjective: Patient seen and evaluated S/P hernia surgey POD # 1 Denies chest pain and dyspnea Comfortable Objective - Vital Signs/Intake and Output Vital Signs (last 24 hours): Temp Pulse Resp BP Pulse Ox 99.4 F 92 H 25 H 120/63 93 L 02/22/17 20:00 02/22/17 22:00 02/22/17 22:00 02/22/17 21:43 02/22/17 22:00 Intake and Output: 02/22/17 02/23/17 18:59 06:59 Intake Total 2160 240 Output Total 785 0 Balance 1375 240 - Medications Medications: Current Medications Heparin Sodium (Porcine) (Heparin) 5,000 units SC Q12 [facility] Last Admin: 02/21/17 22:40 Dose: Not Given Hydromorphone HCl (Dilaudid) 0.5 mg IVP Q4H PRN PRN Reason: Pain, moderate (4-7) Cefazolin Sodium 1,000 mg/ (Sodium Chloride) 100 mls @ 200 mls/hr IVPB Q12H [facility] Last Admin: 02/22/17 09:44 Dose: 200 mls/hr Metronidazole 250 mg/ (Miscellaneous) 50 mls @ 100 mls/hr IVPB Q8 [facility] Last Admin: 02/22/17 21:46 Dose: 100 mls/hr Lactated Ringer's (Lactated Ringer's) 1,000 mls @ 70 mls/hr IV .[id number] [facility] Last Admin: 02/22/17 17:10 Dose: 70 mls/hr Ondansetron HCl (Zofran Inj) 4 mg IVP Q4H PRN PRN Reason: Nausea/Vomiting Last Admin: 02/21/17 11:48 Dose: 4 mg Pantoprazole Sodium (Protonix Inj) 40 mg IVP DAILY [facility] Last Admin: 02/22/17 09:43 Dose: 40 mg Rosuvastatin Calcium (Crestor) 5 mg PO HS [facility] Last Admin: 02/22/17 21:47 Dose: 5 mg - Labs Labs: 02/22/17 05:51 02/22/17 05:51 PT 12.2 SECONDS (9.7-12.2) 02/20/17 10:07 INR 1.1 02/20/17 10:07 APTT 23 SECONDS (21-34) 02/20/17 10:07
[2017-02-23] MEDS: metroNIDAZOLE IV 500 mg/100 ml 250 MG in Premixed IV 1 EA IVPB SCH ×3 (05:27→22:20)
[2017-02-23 06:30] LABS: HEMATOCRIT 34.2 % (35.0-51.0); MEAN CELL VOLUME 94.5 fL (80.0-94.0); MEAN CORPUSCULAR HGB CONC 33.9 g/dL (33.0-37.0); PLATELET COUNT 96 K/uL (130-400); RED CELL DISTRIBUTION WIDTH 14.2 % (11.5-14.5); WHITE BLOOD COUNT 10.1 K/uL (4.8-10.8)
[2017-02-23 06:31] LABS: BASO % 0.1 % (0.0-2.0); EOS # 0.1 K/uL (0.0-0.7); EOS % 1.1 % (0.0-4.0); LYMPH # 0.6 K/uL (1.0-4.3); LYMPH % 6.4 % (20.0-40.0); MONO # 0.9 K/uL (0.0-0.8); MONO % 8.8 % (0.0-10.0)
[2017-02-23 06:42] LABS: POTASSIUM 3.5 mmol/L (3.6-5.2)
[2017-02-23 06:44] LABS: ALB/GLOB RATIO 0.8 (1.0-2.1); BILIRUBIN,TOTAL 0.6 mg/dL (0.2-1.3); TOTAL PROTEIN 5.4 g/dL (6.3-8.3)
[2017-02-23 06:45] LABS: CALCIUM 8.5 mg/dl (8.6-10.4); MAGNESIUM 1.8 mg/dL (1.6-2.3)
[2017-02-23] MEDS: Lactated Ringer's 1,000 ML IV SCH (07:16)
[2017-02-23 08:54] LABS: EOSINOPHIL 1 % (0-4); NEUTROPHIL 50 % (50-75); TOTAL CELLS COUNTED 100
[2017-02-23] MEDS ORDERED: Potassium Chloride 20 mEq/15 ml LIQ UD PO ONE ×2 (10:50→12:00)
--- NOTE | 2017-02-23 15:00 | CP.PCM.PN ---
Subjective - Date & Time of Evaluation Date of Evaluation: 02/23/17 Time of Evaluation: 14:58 - Subjective Subjective: Surgery: Dr. Barrera Pt seen and examined. Resting comfortably in bed. Tolerating CLD. No N/V. Passing flatus. No BM. Objective - Vital Signs/Intake and Output Vital Signs (last 24 hours): Temp Pulse Resp BP Pulse Ox 98.8 F 109 H 30 H 120/72 96 02/23/17 08:00 02/23/17 09:46 02/23/17 09:46 02/23/17 10:47 02/23/17 08:00 Intake and Output: 02/23/17 02/23/17 06:59 18:59 Intake Total 1050 480 Output Total 300 Balance 750 480 - Medications Medications: Current Medications Heparin Sodium (Porcine) (Heparin) 5,000 units SC Q12 [facility] Last Admin: 02/21/17 22:40 Dose: Not Given Hydromorphone HCl (Dilaudid) 0.5 mg IVP Q4H PRN PRN Reason: Pain, moderate (4-7) Cefazolin Sodium 1,000 mg/ (Sodium Chloride) 100 mls @ 200 mls/hr IVPB Q12H [facility] Last Admin: 02/23/17 10:01 Dose: 200 mls/hr Metronidazole 250 mg/ (Miscellaneous) 50 mls @ 100 mls/hr IVPB Q8 [facility] Last Admin: 02/23/17 05:27 Dose: 100 mls/hr Ondansetron HCl (Zofran Inj) 4 mg IVP Q4H PRN PRN Reason: Nausea/Vomiting Last Admin: 02/21/17 11:48 Dose: 4 mg Pantoprazole Sodium (Protonix Inj) 40 mg IVP DAILY [facility] Last Admin: 02/23/17 10:01 Dose: 40 mg Rosuvastatin Calcium (Crestor) 5 mg PO HS [facility] Last Admin: 02/22/17 21:47 Dose: 5 mg - Labs Labs: 02/23/17 06:15 02/23/17 06:19 PT 12.2 SECONDS (9.7-12.2) 02/20/17 10:07 INR 1.1 02/20/17 10:07 APTT 23 SECONDS (21-34) 02/20/17 10:07 - Constitutional Appears: Non-toxic, No Acute Distress - Head Exam Head Exam: ATRAUMATIC, NORMOCEPHALIC - Eye Exam Eye Exam: EOMI - ENT Exam ENT Exam: Mucous Membranes Moist, Normal External Ear Exam - Neck Exam Neck Exam: Full ROM - Respiratory Exam Respiratory Exam: NORMAL BREATHING PATTERN. absent: Accessory Muscle Use, Respiratory Distress - GI/Abdominal Exam GI & Abdominal Exam: Soft. absent: Distended, Firm, Guarding, Rigid, Tenderness , Diminished Bowel Sounds Additional comments: Incisions C/D/I - Extremities Exam Extremities Exam: absent: Calf Tenderness, Pedal Edema - Neurological Exam Neurological Exam: Alert, Awake, Oriented x3 - Psychiatric Exam Psychiatric exam: Normal Affect, Normal Mood - Skin Skin Exam: Dry, Warm Assessment and Plan - Assessment and Plan (Free Text) Assessment: 77M with incarcerated right inguinal hernia s/p Diagnostic laparoscopy w. reduction of incarcerated bowel and open repair of R inguinal hernia POD#2 -Diet advanced to regular, monitor bowel fxn -Percocet for pain -encourage OOB to chair, IS use, and PT -will continue to follow -d/w attending Devikaitis PGY3
[2017-02-23] MEDS ORDERED: Oxycodone/Acetaminophen 5/325 mg Tab PO PRN (15:05)
--- NOTE | 2017-02-23 16:06 | CP.PCM.PN ---
Subjective - Date & Time of Evaluation Date of Evaluation: 02/23/17 Time of Evaluation: 14:40 - Subjective Subjective: tolerating po moving bowels no urinary issues no fever no chest pain no sob no rash no arthralgias no headache no abdominal pain Objective - Vital Signs/Intake and Output Vital Signs (last 24 hours): Temp Pulse Resp BP Pulse Ox 98.8 F 103 H 21 119/76 95 02/23/17 15:49 02/23/17 15:23 02/23/17 15:23 02/23/17 15:23 02/23/17 15:49 Intake and Output: 02/23/17 02/23/17 06:59 18:59 Intake Total 1050 480 Output Total 300 Balance 750 480 - Medications Medications: Current Medications Heparin Sodium (Porcine) (Heparin) 5,000 units SC Q12 [facility] Last Admin: 02/21/17 22:40 Dose: Not Given Cefazolin Sodium 1,000 mg/ (Sodium Chloride) 100 mls @ 200 mls/hr IVPB Q12H [facility] Last Admin: 02/23/17 10:01 Dose: 200 mls/hr Metronidazole 250 mg/ (Miscellaneous) 50 mls @ 100 mls/hr IVPB Q8 [facility] Last Admin: 02/23/17 15:18 Dose: 100 mls/hr Ondansetron HCl (Zofran Inj) 4 mg IVP Q4H PRN PRN Reason: Nausea/Vomiting Last Admin: 02/21/17 11:48 Dose: 4 mg Oxycodone/Acetaminophen (Percocet 5/325 Mg Tab) 1 tab PO Q4H PRN PRN Reason: Pain, moderate (4-7) Stop: 02/26/17 15:06 Pantoprazole Sodium (Protonix Inj) 40 mg IVP DAILY [facility] Last Admin: 02/23/17 10:01 Dose: 40 mg Rosuvastatin Calcium (Crestor) 5 mg PO HS [facility] Last Admin: 02/22/17 21:47 Dose: 5 mg - Labs Labs: 02/23/17 06:15 02/23/17 06:19 PT 12.2 SECONDS (9.7-12.2) 02/20/17 10:07 INR 1.1 02/20/17 10:07 APTT 23 SECONDS (21-34) 02/20/17 10:07 - Constitutional Appears: No Acute Distress - Head Exam Head Exam: ATRAUMATIC - Eye Exam Eye Exam: EOMI, Normal appearance - ENT Exam ENT Exam: Mucous Membranes Moist - Neck Exam Neck Exam: Full ROM. absent: Lymphadenopathy - Respiratory Exam Respiratory Exam: NORMAL BREATHING PATTERN. absent: Accessory Muscle Use - Cardiovascular Exam Cardiovascular Exam: REGULAR RHYTHM. absent: Rubs - GI/Abdominal Exam GI & Abdominal Exam: Soft. absent: Tenderness - Neurological Exam Neurological Exam: Alert, Awake Assessment and Plan - Assessment and Plan (Free Text) Assessment: joseph post bowel obstruction, better with ivf continue ab and surgical f/u f/u labs
--- NOTE | 2017-02-23 22:41 | CP.PCM.PN ---
Subjective - Date & Time of Evaluation Date of Evaluation: 02/23/17 Time of Evaluation: 11:00 - Subjective Subjective: Patient seen and evaluated Comfortable Denies chest pain and dyspnea S/P Hernia surgery Objective - Vital Signs/Intake and Output Vital Signs (last 24 hours): Temp Pulse Resp BP Pulse Ox 98.3 F 106 H 20 149/83 95 02/23/17 18:40 02/23/17 18:40 02/23/17 18:40 02/23/17 18:40 02/23/17 15:49 Intake and Output: 02/23/17 02/24/17 18:59 06:59 Intake Total 730 Balance 730 - Medications Medications: Current Medications Heparin Sodium (Porcine) (Heparin) 5,000 units SC Q12 [facility] Last Admin: 02/21/17 22:40 Dose: Not Given Cefazolin Sodium 1,000 mg/ (Sodium Chloride) 100 mls @ 200 mls/hr IVPB Q12H [facility] Last Admin: 02/23/17 22:20 Dose: 200 mls/hr Metronidazole 250 mg/ (Miscellaneous) 50 mls @ 100 mls/hr IVPB Q8 [facility] Last Admin: 02/23/17 22:20 Dose: 100 mls/hr Ondansetron HCl (Zofran Inj) 4 mg IVP Q4H PRN PRN Reason: Nausea/Vomiting Last Admin: 02/21/17 11:48 Dose: 4 mg Oxycodone/Acetaminophen (Percocet 5/325 Mg Tab) 1 tab PO Q4H PRN PRN Reason: Pain, moderate (4-7) Stop: 02/26/17 15:06 Pantoprazole Sodium (Protonix Inj) 40 mg IVP DAILY [facility] Last Admin: 02/23/17 10:01 Dose: 40 mg Rosuvastatin Calcium (Crestor) 5 mg PO HS [facility] Last Admin: 02/23/17 22:20 Dose: 5 mg - Labs Labs: 02/23/17 06:15 02/23/17 06:19 PT 12.2 SECONDS (9.7-12.2) 02/20/17 10:07 INR 1.1 02/20/17 10:07 APTT 23 SECONDS (21-34) 02/20/17 10:07
--- NOTE | 2017-02-23 23:44 | CP.PCM.PN ---
Subjective - Date & Time of Evaluation Date of Evaluation: 02/23/17 Time of Evaluation: 23:44 - Subjective Subjective: Patient is having increasing cough. Tachycardia noted. Shortness of breath on exertion noted. Eating okay, having BM. Leg swelling noted On examination: Vital signs stable. Mildly tachycardia and elevation of BP noted. Good air entry in the left, left lower lung rales noted Labs reviewed Chest x-ray showing left lower lung pneumonia Assessment and recommendation: 77-year-old male admitted with the strangulated hernia, complicated with intestinal obstruction. Status post surgery. Laparotomy. Patient doing well. Now having possible aspiration pneumonitis. Continue the antibiotic, bronchodilators, Lasix and will follow the patient Objective - Vital Signs/Intake and Output Vital Signs (last 24 hours): Temp Pulse Resp BP Pulse Ox 98.3 F 106 H 20 149/83 95 02/23/17 18:40 02/23/17 18:40 02/23/17 18:40 02/23/17 18:40 02/23/17 15:49 Intake and Output: 02/23/17 02/24/17 18:59 06:59 Intake Total 730 Balance 730 - Medications Medications: Current Medications Cefazolin Sodium 1,000 mg/ (Sodium Chloride) 100 mls @ 200 mls/hr IVPB Q12H [facility] Last Admin: 02/23/17 22:20 Dose: 200 mls/hr Metronidazole 250 mg/ (Miscellaneous) 50 mls @ 100 mls/hr IVPB Q8 [facility] Last Admin: 02/23/17 22:20 Dose: 100 mls/hr Metoprolol Tartrate (Lopressor) 25 mg PO BID [facility] Oxycodone/Acetaminophen (Percocet 5/325 Mg Tab) 1 tab PO Q4H PRN PRN Reason: Pain, moderate (4-7) Stop: 02/26/17 15:06 Rosuvastatin Calcium (Crestor) 5 mg PO HS [facility] Last Admin: 02/23/17 22:20 Dose: 5 mg - Labs Labs: 02/23/17 06:15 02/23/17 06:19 PT 12.2 SECONDS (9.7-12.2) 02/20/17 10:07 INR 1.1 02/20/17 10:07 APTT 23 SECONDS (21-34) 02/20/17 10:07
[2017-02-24] MEDS: metroNIDAZOLE IV 500 mg/100 ml 250 MG in Premixed IV 1 EA IVPB SCH ×2 (05:44→13:53)
[2017-02-24 06:28] LABS: BASO % 0.1 % (0.0-2.0); EOS # 0.2 K/uL (0.0-0.7); EOS % 1.8 % (0.0-4.0); HEMATOCRIT 37.3 % (35.0-51.0); LYMPH # 0.9 K/uL (1.0-4.3); LYMPH % 7.1 % (20.0-40.0); MEAN CELL VOLUME 94.6 fL (80.0-94.0); MEAN CORPUSCULAR HEMOGLOBIN 31.5 pg (27.0-31.0); MEAN CORPUSCULAR HGB CONC 33.3 g/dL (33.0-37.0); MEAN PLATELET VOLUME 9.8 fL (7.2-11.7); MONO # 1.2 K/uL (0.0-0.8); MONO % 9.6 % (0.0-10.0); PLATELET COUNT 117 K/uL (130-400); RED CELL DISTRIBUTION WIDTH 14.1 % (11.5-14.5); WHITE BLOOD COUNT 12.5 K/uL (4.8-10.8)
[2017-02-24 07:33] LABS: POTASSIUM 3.7 mmol/L (3.6-5.2)
[2017-02-24 07:35] LABS: BILIRUBIN,TOTAL 0.9 mg/dL (0.2-1.3); TOTAL PROTEIN 5.8 g/dL (6.3-8.3)
[2017-02-24 07:36] LABS: CALCIUM 8.4 mg/dl (8.6-10.4)
[2017-02-24 08:29] LABS: EOSINOPHIL 3 % (0-4); NEUTROPHIL 78 % (50-75); TOTAL CELLS COUNTED 100
--- NOTE | 2017-02-24 08:43 | RAD ---
Chest x-ray single frontal view History: Congestive heart failure. Comparison: 02/20/2017 Findings: Prominent consolidative changes within the left mid to lower lung zone. Mild cardiomegaly. Tortuous ectatic aorta. Degenerative changes the spine with paravertebral osteophytes. Degenerative changes in the shoulders with osteophytosis. Impression: Prominent consolidative changes within the left mid to lower lung zone. Mild cardiomegaly. Tortuous ectatic aorta.
[2017-02-24] MEDS ORDERED: Potassium Chloride 20 mEq/15 ml LIQ UD PO ONE (09:04)
[2017-02-24] MEDS ORDERED: Albuterol-Ipratrop 3 mg / 0.5 (3 ml) UD INH STA ×2 (09:05→10:34)
--- NOTE | 2017-02-24 11:20 | CP.PCM.PN ---
Subjective - Date & Time of Evaluation Date of Evaluation: 02/24/17 Time of Evaluation: 11:18 - Subjective Subjective: Alert; in NAD Doing better post surgery JAVIER - resolving- creat 1.4 no n,v, d, chill, f, HAs Objective - Vital Signs/Intake and Output Vital Signs (last 24 hours): Temp Pulse Resp BP Pulse Ox 99.0 F 94 H 20 130/83 98 02/24/17 05:58 02/24/17 05:58 02/23/17 23:50 02/24/17 09:32 02/23/17 23:50 Intake and Output: 02/24/17 02/24/17 06:59 18:59 Intake Total 290 Balance 290 - Medications Medications: Current Medications Albuterol/Ipratropium (Duoneb 3 Mg/0.5 Mg (3 Ml) Ud) 3 ml INH RQ6 [facility] Metronidazole 250 mg/ (Miscellaneous) 50 mls @ 100 mls/hr IVPB Q8 [facility] Last Admin: 02/24/17 05:44 Dose: 100 mls/hr Piperacillin Sod/Tazobactam (Sod 2.275 gm/ Sodium Chloride) 100 mls @ 200 mls/ hr IVPB Q8 [facility] Metoprolol Tartrate (Lopressor) 25 mg PO BID [facility] Last Admin: 02/24/17 09:32 Dose: 25 mg Oxycodone/Acetaminophen (Percocet 5/325 Mg Tab) 1 tab PO Q4H PRN PRN Reason: Pain, moderate (4-7) Stop: 02/26/17 15:06 Rosuvastatin Calcium (Crestor) 5 mg PO HS [facility] Last Admin: 02/23/17 22:20 Dose: 5 mg - Labs Labs: 02/24/17 06:21 02/24/17 06:21 PT 12.2 SECONDS (9.7-12.2) 02/20/17 10:07 INR 1.1 02/20/17 10:07 APTT 23 SECONDS (21-34) 02/20/17 10:07 - Constitutional Appears: No Acute Distress, Chronically Ill - Head Exam Head Exam: ATRAUMATIC, NORMAL INSPECTION - Eye Exam Eye Exam: EOMI, Normal appearance - Neck Exam Neck Exam: Normal Inspection. absent: Tenderness - Respiratory Exam Respiratory Exam: Clear to Ausculation Bilateral, NORMAL BREATHING PATTERN - Cardiovascular Exam Cardiovascular Exam: REGULAR RHYTHM, +S1 - GI/Abdominal Exam GI & Abdominal Exam: Soft. absent: Tenderness - Extremities Exam Extremities Exam: Normal Inspection. absent: Tenderness - Neurological Exam Neurological Exam: CN II-XII Intact, Oriented x3 - Skin Skin Exam: Dry, Warm Assessment and Plan (1) JAVIER (acute kidney injury) Status: Resolved (2) Acute on chronic renal failure Status: Acute (3) Elevated troponin Status: Acute (4) Hypokalemia Status: Acute - Assessment and Plan (Free Text) Plan: Continue to monitor lytes, renal function
--- NOTE | 2017-02-24 12:21 | CP.PCM.PN ---
Subjective - Date & Time of Evaluation Date of Evaluation: 02/24/17 Time of Evaluation: 11:00 - Subjective Subjective: General Surgery Dr. Barrera Pt S&E sitting in chair @bedside. NAEO. denies F/C, N/V, abd pain, D/C. tolerating regular diet. Objective - Vital Signs/Intake and Output Vital Signs (last 24 hours): Temp Pulse Resp BP Pulse Ox 99.0 F 94 H 20 130/83 98 02/24/17 05:58 02/24/17 05:58 02/23/17 23:50 02/24/17 09:32 02/23/17 23:50 Intake and Output: 02/24/17 02/24/17 06:59 18:59 Intake Total 290 Balance 290 - Medications Medications: Current Medications Albuterol/Ipratropium (Duoneb 3 Mg/0.5 Mg (3 Ml) Ud) 3 ml INH RQ6 [facility] Metronidazole 250 mg/ (Miscellaneous) 50 mls @ 100 mls/hr IVPB Q8 [facility] Last Admin: 02/24/17 05:44 Dose: 100 mls/hr Piperacillin Sod/Tazobactam (Sod 2.275 gm/ Sodium Chloride) 100 mls @ 200 mls/ hr IVPB Q8 [facility] Metoprolol Tartrate (Lopressor) 25 mg PO BID [facility] Last Admin: 02/24/17 09:32 Dose: 25 mg Oxycodone/Acetaminophen (Percocet 5/325 Mg Tab) 1 tab PO Q4H PRN PRN Reason: Pain, moderate (4-7) Stop: 02/26/17 15:06 Rosuvastatin Calcium (Crestor) 5 mg PO HS [facility] Last Admin: 02/23/17 22:20 Dose: 5 mg - Labs Labs: 02/24/17 06:21 02/24/17 06:21 PT 12.2 SECONDS (9.7-12.2) 02/20/17 10:07 INR 1.1 02/20/17 10:07 APTT 23 SECONDS (21-34) 02/20/17 10:07 - Constitutional Appears: Non-toxic, No Acute Distress - Head Exam Head Exam: NORMAL INSPECTION - Eye Exam Eye Exam: Normal appearance - ENT Exam ENT Exam: Mucous Membranes Moist - Neck Exam Neck Exam: Normal Inspection - Respiratory Exam Respiratory Exam: NORMAL BREATHING PATTERN. absent: Accessory Muscle Use, Respiratory Distress - Cardiovascular Exam Cardiovascular Exam: absent: Bradycardia, Tachycardia - GI/Abdominal Exam GI & Abdominal Exam: Soft. absent: Distended, Guarding, Tenderness, Rebound Additional comments: incision c/d/i, well approximated - Extremities Exam Extremities Exam: Pedal Edema - Neurological Exam Neurological Exam: Alert, Awake, Oriented x3 - Psychiatric Exam Psychiatric exam: Normal Affect, Normal Mood - Skin Skin Exam: Dry, Normal Color, Warm Assessment and Plan - Assessment and Plan (Free Text) Assessment: 77 y/o M POD#3 s/p Diagnostic laparoscopy w/ reduction of incarcerated bowel and open repair of R inguinal hernia w/ worsening leukocytosis - trend WBC, encourage IS use - ADAT - monitor bowel fxn - cont pain management - encourage OOB to chair/Amb Pt discussed w/ Dr. Bruce Davila DO PGY2
[2017-02-24] MEDS: Piperacillin/Tazobact 2.275 GM in Sodium Chloride 100 ML IVPB SCH ×2 (13:51→22:17)
[2017-02-24] MEDS: Albuterol-Ipratrop 3 mg / 0.5 (3 ml) UD INH SCH ×2 (14:04→20:07)
--- NOTE | 2017-02-24 21:20 | CARD ---
APPROVED REPORT EKG Measurement Heart [id number] IN [id number] <Conclusion> Normal sinus rhythm Nonspecific T wave abnormality Abnormal ECG
--- NOTE | 2017-02-24 22:57 | CP.PCM.PN ---
Subjective - Date & Time of Evaluation Date of Evaluation: 02/24/17 Time of Evaluation: 19:10 - Subjective Subjective: Patient seen and evaluated Denies chest pain and dyspnea Objective - Vital Signs/Intake and Output Vital Signs (last 24 hours): Temp Pulse Resp BP Pulse Ox 99.1 F 105 H 20 114/86 94 L 02/24/17 15:44 02/24/17 15:44 02/24/17 15:44 02/24/17 17:10 02/24/17 15:44 - Medications Medications: Current Medications Albuterol/Ipratropium (Duoneb 3 Mg/0.5 Mg (3 Ml) Ud) 3 ml INH RQ6 [facility] Last Admin: 02/24/17 20:07 Dose: 3 ml Metronidazole 250 mg/ (Miscellaneous) 50 mls @ 100 mls/hr IVPB Q8 [facility] Last Admin: 02/24/17 13:53 Dose: 100 mls/hr Piperacillin Sod/Tazobactam (Sod 2.275 gm/ Sodium Chloride) 100 mls @ 200 mls/ hr IVPB Q8 [facility] Last Admin: 02/24/17 22:17 Dose: 200 mls/hr Metoprolol Tartrate (Lopressor) 25 mg PO BID [facility] Last Admin: 02/24/17 17:10 Dose: 25 mg Oxycodone/Acetaminophen (Percocet 5/325 Mg Tab) 1 tab PO Q4H PRN PRN Reason: Pain, moderate (4-7) Stop: 02/26/17 15:06 Rosuvastatin Calcium (Crestor) 5 mg PO HS [facility] Last Admin: 02/24/17 21:20 Dose: 5 mg - Labs Labs: 02/24/17 06:21 02/24/17 06:21 PT 12.2 SECONDS (9.7-12.2) 02/20/17 10:07 INR 1.1 02/20/17 10:07 APTT 23 SECONDS (21-34) 02/20/17 10:07
[2017-02-25] MEDS: Albuterol-Ipratrop 3 mg / 0.5 (3 ml) UD INH SCH ×4 (01:27→20:19)
[2017-02-25] MEDS: Piperacillin/Tazobact 2.275 GM in Sodium Chloride 100 ML IVPB SCH (06:43)
[2017-02-25] MEDS: metroNIDAZOLE IV 500 mg/100 ml 250 MG in Premixed IV 1 EA IVPB SCH ×3 (06:43→22:17)
--- NOTE | 2017-02-25 10:48 | CP.PCM.PN ---
Subjective - Date & Time of Evaluation Date of Evaluation: 02/25/17 Time of Evaluation: 10:46 - Subjective Subjective: Surgery: Dr. Barrera Pt seen and examined. Resting comfortably in bed. Pain controlled. Tolerating diet. No N/V. Passing flatus. +BM Objective - Vital Signs/Intake and Output Vital Signs (last 24 hours): Temp Pulse Resp BP Pulse Ox 98.5 F 89 18 111/69 96 02/25/17 07:25 02/25/17 07:25 02/25/17 07:25 02/25/17 09:32 02/25/17 07:25 - Medications Medications: Current Medications Albuterol/Ipratropium (Duoneb 3 Mg/0.5 Mg (3 Ml) Ud) 3 ml INH RQ6 [facility] Last Admin: 02/25/17 07:43 Dose: 3 ml Metronidazole 250 mg/ (Miscellaneous) 50 mls @ 100 mls/hr IVPB Q8 [facility] Last Admin: 02/25/17 06:43 Dose: 100 mls/hr Piperacillin Sod/Tazobactam (Sod 2.275 gm/ Sodium Chloride) 100 mls @ 200 mls/ hr IVPB Q8 [facility] Last Admin: 02/25/17 06:43 Dose: 200 mls/hr Metoprolol Tartrate (Lopressor) 25 mg PO BID [facility] Last Admin: 02/25/17 09:32 Dose: 25 mg Oxycodone/Acetaminophen (Percocet 5/325 Mg Tab) 1 tab PO Q4H PRN PRN Reason: Pain, moderate (4-7) Stop: 02/26/17 15:06 Rosuvastatin Calcium (Crestor) 5 mg PO HS [facility] Last Admin: 02/24/17 21:20 Dose: 5 mg - Labs Labs: 02/24/17 06:21 02/24/17 06:21 PT 12.2 SECONDS (9.7-12.2) 02/20/17 10:07 INR 1.1 02/20/17 10:07 APTT 23 SECONDS (21-34) 02/20/17 10:07 - Constitutional Appears: Non-toxic, No Acute Distress - Head Exam Head Exam: ATRAUMATIC, NORMOCEPHALIC - Eye Exam Eye Exam: EOMI Pupil Exam: NORMAL ACCOMODATION - ENT Exam ENT Exam: Mucous Membranes Moist - Neck Exam Neck Exam: Full ROM, Normal Inspection - Respiratory Exam Respiratory Exam: NORMAL BREATHING PATTERN. absent: Accessory Muscle Use, Respiratory Distress - GI/Abdominal Exam GI & Abdominal Exam: Soft. absent: Distended, Firm, Guarding, Rigid, Tenderness , Rebound Additional comments: incision C/D/I - Neurological Exam Neurological Exam: Alert, Awake, Oriented x3 Assessment and Plan - Assessment and Plan (Free Text) Assessment: 77M with incarcerated right inguinal hernia s/p Diagnostic laparoscopy w. reduction of incarcerated bowel and open repair of R inguinal hernia w. mesh, POD#4 -wbc trending up, c/w abx -encourage ambulation, OOB, and IS use -no plans for further surgical intervention at this time -will continue to follow -d/w attending Abhay PGY3
[2017-02-25] MEDS: Piperacillin/Tazobact 2.25 GM in Sodium Chloride 100 ML IVPB SCH ×2 (13:11→22:18)
--- NOTE | 2017-02-25 14:05 | CP.PCM.PN ---
Subjective - Date & Time of Evaluation Date of Evaluation: 02/25/17 Time of Evaluation: 14:03 - Subjective Subjective: Alert, feeling better POD#4 incarcerated hernia repair creat decreased to 1.4- JAVIRE resolving Likely pneumonia on CXR- on IV ABs not dyspneic now no f, chills, n, v, diarrhea Objective - Vital Signs/Intake and Output Vital Signs (last 24 hours): Temp Pulse Resp BP Pulse Ox 98.5 F 89 18 111/69 96 02/25/17 07:25 02/25/17 07:25 02/25/17 07:25 02/25/17 09:32 02/25/17 07:25 - Medications Medications: Current Medications Albuterol/Ipratropium (Duoneb 3 Mg/0.5 Mg (3 Ml) Ud) 3 ml INH RQ6 [facility] Last Admin: 02/25/17 07:43 Dose: 3 ml Metronidazole 250 mg/ (Miscellaneous) 50 mls @ 100 mls/hr IVPB Q8 [facility] Last Admin: 02/25/17 13:10 Dose: 100 mls/hr Piperacillin Sod/Tazobactam (Sod 2.25 gm/ Sodium Chloride) 100 mls @ 200 mls/ hr IVPB Q8 [facility] Last Admin: 02/25/17 13:11 Dose: 200 mls/hr Metoprolol Tartrate (Lopressor) 25 mg PO BID [facility] Last Admin: 02/25/17 09:32 Dose: 25 mg Oxycodone/Acetaminophen (Percocet 5/325 Mg Tab) 1 tab PO Q4H PRN PRN Reason: Pain, moderate (4-7) Stop: 02/26/17 15:06 Rosuvastatin Calcium (Crestor) 5 mg PO HS [facility] Last Admin: 02/24/17 21:20 Dose: 5 mg - Labs Labs: 02/24/17 06:21 02/24/17 06:21 PT 12.2 SECONDS (9.7-12.2) 02/20/17 10:07 INR 1.1 02/20/17 10:07 APTT 23 SECONDS (21-34) 02/20/17 10:07 - Constitutional Appears: No Acute Distress, Chronically Ill - Head Exam Head Exam: ATRAUMATIC, NORMAL INSPECTION - Eye Exam Eye Exam: EOMI, Normal appearance - Neck Exam Neck Exam: Normal Inspection. absent: Tenderness - Respiratory Exam Respiratory Exam: Rhonchi, NORMAL BREATHING PATTERN - Cardiovascular Exam Cardiovascular Exam: REGULAR RHYTHM, +S1 - GI/Abdominal Exam GI & Abdominal Exam: Soft. absent: Tenderness - Extremities Exam Extremities Exam: Pedal Edema. absent: Tenderness - Neurological Exam Neurological Exam: Alert, CN II-XII Intact - Skin Skin Exam: Dry, Warm Assessment and Plan (1) JAVIER (acute kidney injury) Status: Resolved (2) Acute on chronic renal failure Status: Resolved (3) Elevated troponin Status: Acute (4) Hypokalemia Status: Acute - Assessment and Plan (Free Text) Plan: Monitor renal function replete K again repeat chemistries
--- NOTE | 2017-02-25 14:33 | VASCLAB ---
PROCEDURE: Lower Extremity Venous Duplex Exam. HISTORY: dvt edema PRIORS: None. TECHNIQUE: Bilateral common femoral, femoral, popliteal and posterior tibial, peroneal and great saphenous veins were evaluated. Flow was assessed with color Doppler, compressibility, assessment of phasic flow and augmentation response. Report prepared by ELLIE Romero, RVT FINDINGS: RIGHT: 1. Common Femoral Vein: 1.1. Compressibility - Fully compressible: Thrombus - None : Flow - Phasic: Augmentation -Normal: Reflux - None. 2. Femoral Vein: 2.1. Compressibility - Fully compressible: Thrombus - None : Flow - Phasic: Augmentation -Normal: Reflux - None. 3. Popliteal Vein: 3.1. Compressibility - Fully compressible: Thrombus - None : Flow - Phasic: Augmentation -Normal: Reflux - None. 4. Posterior Tibial Vein: 4.1. Compressibility - Fully compressible: Thrombus - None: Flow - Phasic: Augmentation -Normal: Reflux - None. 5. Peroneal Vein: 5.1. Compressibility - Fully compressible: Thrombus - None: Flow - Phasic: Augmentation -Normal: Reflux - None. 6. Great Saphenous Vein: 6.1. Compressibility - Fully compressible: Thrombus - None: Flow - Phasic: Augmentation - Normal: Reflux - None. LEFT: 1. Common Femoral Vein: 1.1. Compressibility - Fully compressible: Thrombus - None: Flow - Phasic: Augmentation -Normal: Reflux - None. 2. Femoral Vein: 2.1. Compressibility - Fully compressible: Thrombus - None: Flow - Phasic: Augmentation -Normal: Reflux - None. 3. Popliteal Vein: 3.1. Compressibility - Fully compressible: Thrombus - None : Flow - Phasic: Augmentation -Normal: Reflux - None. 4. Posterior Tibial Vein: 4.1. Compressibility - Fully compressible: Thrombus - None: Flow - Phasic: Augmentation -Normal: Reflux - None. 5. Peroneal Vein: 5.1. Compressibility - Fully compressible: Thrombus - None: Flow - Phasic: Augmentation -Normal: Reflux - None. 6. Great Saphenous Vein: 6.1. Compressibility - Fully compressible: Thrombus - None: Flow - Phasic: Augmentation - Normal: Reflux - None. OTHER FINDINGS: Right: None significant. Left: None significant. IMPRESSION: Right: No evidence of deep or superficial vein thrombosis of the right lower extremity. Normal valve function noted of the right side. Left: No evidence of deep or superficial vein thrombosis of the left lower extremity. Normal valve function noted of the left side.
--- NOTE | 2017-02-25 14:57 | RAD ---
HISTORY: Pneumonia. COMPARISON: February 24, 2017. FINDINGS: LUNGS: Stable left lower lobe infiltrate consistent with pneumonia. Findings accentuated by poor inspiratory effort. PLEURA: No significant pleural effusion identified, no pneumothorax apparent. CARDIOVASCULAR: No radiographic findings to suggest acute or significant cardiovascular disease. OSSEOUS STRUCTURES: No significant abnormalities. VISUALIZED UPPER ABDOMEN: Normal. OTHER FINDINGS: None. IMPRESSION: Stable left lower lobe infiltrate/pneumonia.
[2017-02-25 15:08] LABS: HEPARIN-IND PLATELET AB Negative (Negative)
[2017-02-25] MEDS ORDERED: Potassium Chloride 20 mEq ER Tab PO ONE (15:30)
[2017-02-25 16:05] VITALS: RESP 20
--- NOTE | 2017-02-25 23:02 | CP.PCM.PN ---
Subjective - Date & Time of Evaluation Date of Evaluation: 02/25/17 Time of Evaluation: 23:01 - Subjective Subjective: pt feeling ok cough noted cxr left lung pneumonia noted vitals stable continue the antibiotic if stable will d/c home tomorrow Objective - Vital Signs/Intake and Output Vital Signs (last 24 hours): Temp Pulse Resp BP Pulse Ox 98.7 F 100 H 20 111/65 98 02/25/17 15:04 02/25/17 15:04 02/25/17 15:04 02/25/17 18:22 02/25/17 15:04 - Medications Medications: Current Medications Albuterol/Ipratropium (Duoneb 3 Mg/0.5 Mg (3 Ml) Ud) 3 ml INH RQ6 [facility] Last Admin: 02/25/17 20:19 Dose: 3 ml Metronidazole 250 mg/ (Miscellaneous) 50 mls @ 100 mls/hr IVPB Q8 [facility] Last Admin: 02/25/17 22:17 Dose: 100 mls/hr Piperacillin Sod/Tazobactam (Sod 2.25 gm/ Sodium Chloride) 100 mls @ 200 mls/ hr IVPB Q8 [facility] Last Admin: 02/25/17 22:18 Dose: 200 mls/hr Metoprolol Tartrate (Lopressor) 25 mg PO BID [facility] Last Admin: 02/25/17 18:22 Dose: 25 mg Oxycodone/Acetaminophen (Percocet 5/325 Mg Tab) 1 tab PO Q4H PRN PRN Reason: Pain, moderate (4-7) Stop: 02/26/17 15:06 Rosuvastatin Calcium (Crestor) 5 mg PO HS [facility] Last Admin: 02/25/17 22:17 Dose: 5 mg - Labs Labs: 02/24/17 06:21 02/24/17 06:21 PT 12.2 SECONDS (9.7-12.2) 02/20/17 10:07 INR 1.1 02/20/17 10:07 APTT 23 SECONDS (21-34) 02/20/17 10:07
--- NOTE | 2017-02-25 23:06 | CP.PCM.PN ---
Subjective - Date & Time of Evaluation Date of Evaluation: 02/25/17 Time of Evaluation: 07:20 - Subjective Subjective: Patient seen and evaluated Denies chest pain and dyspnea Objective - Vital Signs/Intake and Output Vital Signs (last 24 hours): Temp Pulse Resp BP Pulse Ox 98.7 F 100 H 20 111/65 98 02/25/17 15:04 02/25/17 15:04 02/25/17 15:04 02/25/17 18:22 02/25/17 15:04 - Medications Medications: Current Medications Albuterol/Ipratropium (Duoneb 3 Mg/0.5 Mg (3 Ml) Ud) 3 ml INH RQ6 [facility] Last Admin: 02/25/17 20:19 Dose: 3 ml Metronidazole 250 mg/ (Miscellaneous) 50 mls @ 100 mls/hr IVPB Q8 [facility] Last Admin: 02/25/17 22:17 Dose: 100 mls/hr Piperacillin Sod/Tazobactam (Sod 2.25 gm/ Sodium Chloride) 100 mls @ 200 mls/ hr IVPB Q8 [facility] Last Admin: 02/25/17 22:18 Dose: 200 mls/hr Metoprolol Tartrate (Lopressor) 25 mg PO BID [facility] Last Admin: 02/25/17 18:22 Dose: 25 mg Oxycodone/Acetaminophen (Percocet 5/325 Mg Tab) 1 tab PO Q4H PRN PRN Reason: Pain, moderate (4-7) Stop: 02/26/17 15:06 Rosuvastatin Calcium (Crestor) 5 mg PO HS [facility] Last Admin: 02/25/17 22:17 Dose: 5 mg - Labs Labs: 02/24/17 06:21 02/24/17 06:21 PT 12.2 SECONDS (9.7-12.2) 02/20/17 10:07 INR 1.1 02/20/17 10:07 APTT 23 SECONDS (21-34) 02/20/17 10:07
[2017-02-26] MEDS: Albuterol-Ipratrop 3 mg / 0.5 (3 ml) UD INH SCH ×3 (01:08→13:34)
[2017-02-26] MEDS: metroNIDAZOLE IV 500 mg/100 ml 250 MG in Premixed IV 1 EA IVPB SCH ×2 (05:46→13:59)
[2017-02-26] MEDS: Piperacillin/Tazobact 2.25 GM in Sodium Chloride 100 ML IVPB SCH ×2 (06:40→13:59)
[2017-02-26 07:14] LABS: BASO % 0.1 % (0.0-2.0); EOS # 0.4 K/uL (0.0-0.7); EOS % 3.4 % (0.0-4.0); HEMATOCRIT 33.2 % (35.0-51.0); MEAN CELL VOLUME 93.9 fL (80.0-94.0); MEAN CORPUSCULAR HEMOGLOBIN 31.8 pg (27.0-31.0); MEAN CORPUSCULAR HGB CONC 33.9 g/dL (33.0-37.0); MEAN PLATELET VOLUME 9.7 fL (7.2-11.7); MONO % 8.3 % (0.0-10.0); PLATELET COUNT 128 K/uL (130-400); WHITE BLOOD COUNT 12.5 K/uL (4.8-10.8)
[2017-02-26 07:27] LABS: POTASSIUM 3.5 mmol/L (3.6-5.2)
[2017-02-26 07:29] LABS: BILIRUBIN,TOTAL 0.7 mg/dL (0.2-1.3); TOTAL PROTEIN 5.7 g/dL (6.3-8.3)
[2017-02-26 07:30] LABS: CALCIUM 7.3 mg/dl (8.6-10.4); MAGNESIUM 1.3 mg/dL (1.6-2.3)
[2017-02-26 07:48] LABS: ALB/GLOB RATIO 0.8 (1.0-2.1)
--- NOTE | 2017-02-26 07:53 | CP.PCM.PN ---
Subjective - Date & Time of Evaluation Date of Evaluation: 02/26/17 Time of Evaluation: 07:50 - Subjective Subjective: Notes reviewed Alert, feels welll this am Wants to go home POD#5 incarcerated hernia repair No pain, appetite good, no cp or palp, no sob or cough, no n/v/d, no urinary complaints ROS: 10 point ros negative other than stated above Objective - Vital Signs/Intake and Output Vital Signs (last 24 hours): Temp Pulse Resp BP Pulse Ox 98.4 F 90 20 116/68 96 02/25/17 23:40 02/25/17 23:40 02/25/17 23:40 02/25/17 23:40 02/25/17 23:40 Intake and Output: 02/26/17 02/26/17 06:59 18:59 Intake Total 170 Balance 170 - Medications Medications: Current Medications Albuterol/Ipratropium (Duoneb 3 Mg/0.5 Mg (3 Ml) Ud) 3 ml INH RQ6 [facility] Last Admin: 02/26/17 01:08 Dose: Not Given Metronidazole 250 mg/ (Miscellaneous) 50 mls @ 100 mls/hr IVPB Q8 [facility] Last Admin: 02/26/17 05:46 Dose: 100 mls/hr Piperacillin Sod/Tazobactam (Sod 2.25 gm/ Sodium Chloride) 100 mls @ 200 mls/ hr IVPB Q8 [facility] Last Admin: 02/26/17 06:40 Dose: 200 mls/hr Metoprolol Tartrate (Lopressor) 25 mg PO BID [facility] Last Admin: 02/25/17 18:22 Dose: 25 mg Oxycodone/Acetaminophen (Percocet 5/325 Mg Tab) 1 tab PO Q4H PRN PRN Reason: Pain, moderate (4-7) Stop: 02/26/17 15:06 Rosuvastatin Calcium (Crestor) 5 mg PO HS [facility] Last Admin: 02/25/17 22:17 Dose: 5 mg - Labs Labs: 02/26/17 07:03 02/26/17 07:03 PT 12.2 SECONDS (9.7-12.2) 02/20/17 10:07 INR 1.1 02/20/17 10:07 APTT 23 SECONDS (21-34) 02/20/17 10:07 - Constitutional Appears: Well, Non-toxic - Head Exam Head Exam: ATRAUMATIC, NORMAL INSPECTION - Eye Exam Eye Exam: EOMI, Normal appearance - ENT Exam ENT Exam: Mucous Membranes Moist, Normal Oropharynx - Respiratory Exam Respiratory Exam: Clear to Ausculation Bilateral. absent: Rhonchi, Wheezes - Cardiovascular Exam Cardiovascular Exam: REGULAR RHYTHM, +S1, +S2 - GI/Abdominal Exam GI & Abdominal Exam: Soft, Normal Bowel Sounds - Extremities Exam Extremities Exam: Full ROM. absent: Pedal Edema - Neurological Exam Neurological Exam: Alert, Awake, Oriented x3 - Psychiatric Exam Psychiatric exam: Normal Affect, Normal Mood - Skin Skin Exam: Dry, Intact Assessment and Plan (1) Hypomagnesemia Status: Acute (2) Hypertension Status: Acute (3) Hypokalemia Status: Acute (4) JAVIER (acute kidney injury) Status: Resolved (5) Acute on chronic renal failure Status: Resolved - Assessment and Plan (Free Text) Assessment: Renal function stable and improved Replace k today Replace mg today Repeat labs Stable renal ponce Continue current care
[2017-02-26 09:39] LABS: EOSINOPHIL 5 % (0-4); NEUTROPHIL 79 % (50-75); TOTAL CELLS COUNTED 100
[2017-02-26] MEDS ORDERED: Magnesium Oxide 400 mg Tab UD PO SCH (10:00)
[2017-02-26] MEDS ORDERED: Potassium Chloride 20 mEq/15 ml LIQ UD PO ONE (11:54)
[2017-02-26] MEDS: Magnesium Sulfate 1 gm in D5W 1 GM/100 ML BAG IVPB SCH ×2 (12:05→13:01)
[2017-02-26] MEDS ORDERED: Potassium Chloride 20 mEq ER Tab PO ONE (15:30)
[2017-02-26 16:33] VITALS: BP 133/66; PULSE 94; TEMP 98.8; O2SAT 93
--- NOTE | 2017-02-26 17:21 | CP.PCM.DIS ---
Provider - Provider Date of Admission: 02/20/17 12:18 Attending physician: Kenyetta Cole MD Time Spent in preparation of Discharge (in minutes): 45 Hospital Course - Lab Results Lab Results: Micro Results 02/21/17 09:30 Blood-Venous Blood Culture - Final NO GROWTH AFTER 5 DAYS 02/21/17 09:30 Blood-Venous Gram Stain - Final TEST NOT PERFORMED 02/21/17 01:00 Blood-Venous Blood Culture - Final NO GROWTH AFTER 5 DAYS 02/21/17 01:00 Blood-Venous Gram Stain - Final TEST NOT PERFORMED 02/23/17 17:43 Naris MRSA Culture - Final MRSA NOT DETECTED 02/21/17 14:45 Urine,Clean Catch Urine Culture - Final No Growth (<1,000 CFU/ML) Most Recent Lab Values WBC 12.5 K/uL (4.8-10.8) H 02/26/17 07:03 RBC 3.53 Mil/uL (4.40-5.90) L 02/26/17 07:03 Hgb 11.2 g/dL (12.0-18.0) L 02/26/17 07:03 Hct 33.2 % (35.0-51.0) L 02/26/17 07:03 MCV 93.9 fL (80.0-94.0) 02/26/17 07:03 MCH 31.8 pg (27.0-31.0) H 02/26/17 07:03 MCHC 33.9 g/dL (33.0-37.0) 02/26/17 07:03 RDW 14.0 % (11.5-14.5) 02/26/17 07:03 Plt Count 128 K/uL (130-400) L 02/26/17 07:03 MPV 9.7 fL (7.2-11.7) 02/26/17 07:03 Neut % (Auto) 80.2 % (50.0-75.0) H 02/26/17 07:03 Lymph % (Auto) 8.0 % (20.0-40.0) L 02/26/17 07:03 Cannon % (Auto) 8.3 % (0.0-10.0) 02/26/17 07:03 Eos % (Auto) 3.4 % (0.0-4.0) 02/26/17 07:03 Baso % (Auto) 0.1 % (0.0-2.0) 02/26/17 07:03 Neut # 10.0 K/uL (1.8-7.0) H 02/26/17 07:03 Lymph # 1.0 K/uL (1.0-4.3) 02/26/17 07:03 Cannon # 1.0 K/uL (0.0-0.8) H 02/26/17 07:03 Eos # 0.4 K/uL (0.0-0.7) 02/26/17 07:03 Baso # 0.0 K/uL (0.0-0.2) 02/26/17 07:03 Neutrophils % (Manual) 79 % (50-75) H 02/26/17 07:03 Band Neutrophils % 2 % (0-2) 02/26/17 07:03 Lymphocytes % (Manual) 8 % (20-40) L 02/26/17 07:03 Reactive Lymphs % 1 % (0-0) H 02/21/17 06:09 Monocytes % (Manual) 6 % (0-10) 02/26/17 07:03 Eosinophils % (Manual) 5 % (0-4) H 02/26/17 07:03 Metamyelocytes % 2 % (0-0) H 02/21/17 20:59 Myelocytes % 2 % (0-0) H 02/22/17 05:51 Toxic Granulation Present 02/23/17 06:15 Dohle Bodies Present 02/23/17 06:15 Platelet Estimate Normal (NORMAL) 02/26/17 07:03 Large Platelets Present 02/21/17 06:09 RBC Morphology Normal 02/26/17 07:03 Polychromasia Slight 02/20/17 19:23 Hypochromasia (manual) Slight 02/20/17 19:23 Basophilic Stippling Slight 02/23/17 06:15 Anisocytosis (manual) Slight 02/20/17 19:23 Macrocytosis (manual) Slight 02/23/17 06:15 Ovalocytes Slight 02/24/17 06:21 PT 12.2 SECONDS (9.7-12.2) 02/20/17 10:07 INR 1.1 02/20/17 10:07 APTT 23 SECONDS (21-34) 02/20/17 10:07 Sodium 134 mmol/L (132-148) 02/26/17 07:03 Potassium 3.5 mmol/L (3.6-5.2) L 02/26/17 07:03 Chloride 100 mmol/L (98-107) 02/26/17 07:03 Carbon Dioxide 22 mmol/L (22-30) 02/26/17 07:03 Anion Gap 16 (10-20) 02/26/17 07:03 BUN 21 mg/dL (9-20) H 02/26/17 07:03 Creatinine 1.4 mg/dL (0.8-1.5) 02/26/17 07:03 Est GFR ( Amer) 59 02/26/17 07:03 Est GFR (Non-Af Amer) 49 02/26/17 07:03 Random Glucose 84 mg/dL (75-110) 02/26/17 07:03 Lactic Acid 2.1 mmol/L (0.7-2.1) 02/20/17 10:07 Calcium 7.3 mg/dl (8.6-10.4) L 02/26/17 07:03 Phosphorus 2.4 mg/dL (2.5-4.5) L 02/22/17 05:51 Magnesium 1.3 mg/dL (1.6-2.3) L 02/26/17 07:03 Total Bilirubin 0.7 mg/dL (0.2-1.3) 02/26/17 07:03 AST 50 U/L (17-59) 02/26/17 07:03 ALT 43 U/L (21-72) 02/26/17 07:03 Alkaline Phosphatase 60 U/L (38-126) 02/26/17 07:03 Total Creatine Kinase 95 U/L (55-170) 02/21/17 20:59 CK-MB (Mass) 4.55 ng/mL (0.0-3.38) H 02/21/17 20:59 Troponin I, Quant 0.2050 ng/mL (0.00-0.120) H* 02/21/17 20:59 Total Protein 5.7 g/dL (6.3-8.3) L 02/26/17 07:03 Albumin 2.6 g/dL (3.5-5.0) L 02/26/17 07:03 Globulin 3.1 gm/dL (2.2-3.9) 02/26/17 07:03 Albumin/Globulin Ratio 0.8 (1.0-2.1) L 02/26/17 07:03 Triglycerides 64 mg/dL (0-149) 02/22/17 05:51 Cholesterol 75 mg/dL (0-199) 02/22/17 05:51 LDL Cholesterol Direct < 30 mg/dL (0-129) 02/22/17 05:51 HDL Cholesterol 39 mg/dL (30-70) 02/22/17 05:51 Lipase 482 U/L (23-300) H 02/20/17 10:55 Procalcitonin 5.20 NG/ML (0.19-0.49) H 02/21/17 20:59 Urine Color Yellow (YELLOW) 02/20/17 22:04 Urine Clarity Clear (Clear) 02/20/17 22:04 Urine pH 5.0 (5.0-8.0) 02/20/17 22:04 Ur Specific [place] 1.017 (1.003-1.030) 02/20/17 22:04 Urine Protein 1+ mg/dL (NEGATIVE) H 02/20/17 22:04 Urine Glucose (UA) Normal mg/dL (Normal) 02/20/17 22:04 Urine Ketones Trace mg/dL (NEGATIVE) 02/20/17 22:04 Urine Blood Negative (NEGATIVE) 02/20/17 22:04 Urine Nitrate Negative (NEGATIVE) 02/20/17 22:04 Urine Bilirubin Negative (NEGATIVE) 02/20/17 22:04 Urine Urobilinogen Normal mg/dL (0.2-1.0) 02/20/17 22:04 Ur Leukocyte Esterase Neg Pilar/uL (Negative) 02/20/17 22:04 Urine WBC (Auto) 1 /hpf (0-5) 02/20/17 22:04 Urine RBC (Auto) < 1 /hpf (0-3) 02/20/17 22:04 Ur Squamous Epith Cells 1 /hpf (0-5) 02/20/17 11:22 Urine Bacteria Occ (<OCC) H 02/20/17 11:22 Ur Random Sodium < 5 mmol/L 02/21/17 03:03 Serum Ketones Negative (NEGATIVE) 02/20/17 10:55 Heparin-induced Plt Ab Negative (Negative) 02/22/17 10:15 - Hospital Course Hospital Course: Chief complaints: Abdominal pain, nausea, vomiting. History of present illness: 77-year-old male with a history of hypertension, chronic renal insufficiency, mild, proteinuria came to the emergency room with the sudden onset of abdominal pain. Patient started noticing pain for 6 days, initially patient thought some stomach virus, and the pain disappeared 2 days later, again he started having pain, and associated with multiple episodes of vomiting. Patient was not able to eat any food. 2 days. He is not eating anything, is becoming more weak, and also fatigue. He was also complained of decreased urine output. He did not have any bowel movements. After he came to the emergency room, his pain improved markedly. Again, now having increasing pain. Also associated with nausea. Patient did not have any has such history in the past. Patient in the past multiple times, refused a colonoscopy. Past medical history: Hypertension, hypercholesteremia, renal insufficiency, mild proteinuria. Allergies: No known drug allergies. Surgical history: Patient had open reduction internal fixation left femur in 2005. Cataract surgery in the past. Family history no cancer noted. Social history: Nonsmoker, nonalcoholic. Lives with the family. Review of systems: Currently, patient is feeling increasingly weak. Fatigue. Complaining of abdominal pain. Nausea, vomiting, no bowel movements. Urine output is decreasing. Vomiting multiple times. On examination: Patient is currently having diabetes mucosa, shrunken eyes. Chest bilateral good air entry. Regular heart sound. Abdomen mild tenderness epigastric area, bloated and painful and tender noted. Extremities no pedal edema. HEAD SAMPLER alert, awake, oriented. Labs repeated. Elevated BUN/creatinine noted. Mild elevation of the troponin noted. Evidence of dehydration. Assessment and condition: 77-year-old male with history of renal insufficiency, hypertension and hypercholesterolemia. Patient's baseline creatinine is 1.3. Now admitted with acute renal failure likely secondary to severe dehydration. And associated with vomiting and abdominal pain, intra-abdominal pathology has to be ruled out. Renal sonogram is normal. We'll get a CT of the abdomen and pelvis. I dehydration. Renal evaluation. We'll continue to currently monitor and will follow the patient. Patient will need intensive care unit monitoring. Mild troponin elevation, secondary to renal insufficiency. Cardiac causes cannot be ruled out. I spoke to the patient, family, and will follow the patient To the hospitalization emergency NG tube was inserted. 3 L of fluid a drained. Bilateral fluid Patient did not have any improvement in the obstruction. After discussion with the family, patient agreed to have a surgical intervention. Patient underwent laparotomy, and exploration. There was noted to have Ritchters Hernia, corrected. After the surgical intervention patient started having bowel movements. Tolerating oral feeding. Meanwhile patient developed aspiration pneumonia secondary to vomiting. Patient placed on IV antibiotic. Bronchodilators. Patient continued to improve. He will be discharged home. He will follow-up as an outpatient in within 1 week. Diagnosis: Intestinal lab section secondary to incarcerated hernia. Profound vomiting, complicated with aspiration pneumonia. Hypertension. Pedal edema. Discharge Exam - Head Exam Head Exam: ATRAUMATIC, NORMAL INSPECTION Discharge Plan - Discharge Medications Prescriptions: Amoxicillin/Clavulanate [Augmentin 875 MG-125 MG] 1 tab PO BID #14 tab Metronidazole [Flagyl] 250 mg PO TID #21 tablet Albuterol Sulfate [Proventil Hfa] 6.7 gm IH Q6 #1 hfa.aer.[email or web address] - Follow Up Plan Condition: FAIR Disposition: HOME/ ROUTINE Instructions: Acute Kidney Injury (DC), Acute Kidney Injury (GEN)
--- NOTE | 2017-02-27 18:38 | CARD ---
APPROVED REPORT EKG Measurement Heart [id number] <Conclusion> Normal sinus rhythm Nonspecific ST and T wave abnormality Abnormal ECG
--- NOTE | 2017-02-28 08:55 | CP.PCM.PN ---
Subjective - Date & Time of Evaluation Date of Evaluation: 02/24/17 Time of Evaluation: 08:55 - Subjective Subjective: Patient is having increasing cough. Tachycardia noted. Shortness of breath on exertion noted. Eating okay, having BM. Leg swelling noted On examination: Vital signs stable. Mildly tachycardia and elevation of BP noted. Good air entry in the left, left lower lung rales noted Labs reviewed Chest x-ray showing left lower lung pneumonia Assessment and recommendation: 77-year-old male admitted with the strangulated hernia, complicated with intestinal obstruction. Status post surgery. Laparotomy. Patient doing well. Now having possible aspiration pneumonitis. Continue the antibiotic, bronchodilators, Lasix and will follow the patient Objective - Vital Signs/Intake and Output Vital Signs (last 24 hours): Temp Pulse Resp BP Pulse Ox 98.8 F 94 H 20 133/66 93 L 02/26/17 15:33 02/26/17 15:33 02/26/17 15:33 02/26/17 15:33 02/26/17 15:33 - Labs Labs: 02/26/17 07:03 02/26/17 07:03 PT 12.2 SECONDS (9.7-12.2) 02/20/17 10:07 INR 1.1 02/20/17 10:07 APTT 23 SECONDS (21-34) 02/20/17 10:07
== END 2017-02-26 18:36 | disposition home or self-care (01) | DRG 350 ==
LOC: C.ER 09:14 → C.9E 12:18 → C.5S 15:48 → C.9E 15:50 → C.9I 17:41 → C.6T 02-23 18:23
PROVIDERS: ADMIT Internal Medicine; ATTEND Internal Medicine
PROC: 0WQF4ZZ Repair Abdominal Wall, Percutaneous Endoscopic Approach (ICD-10-PCS; principal; 2017-02-21 17:55)
PROC: 0YU50JZ Supplement Right Inguinal Region with Synthetic Substitute, Open Approach (ICD-10-PCS; 2017-02-21 17:55)
DX: K40.30 Unilateral inguinal hernia, with obstruction, without gangrene, not specified as recurrent (principal); J69.0 Pneumonitis due to inhalation of food and vomit; N17.9 Acute kidney failure, unspecified; K46.0 Unspecified abdominal hernia with obstruction, without gangrene; E86.0 Dehydration; E83.42 Hypomagnesemia; E87.6 Hypokalemia; N18.9 Chronic kidney disease, unspecified; I12.9 Hypertensive chronic kidney disease with stage 1 through stage 4 chronic kidney disease, or unspecified chronic kidney disease; E78.00 Pure hypercholesterolemia, unspecified; R74.8 Abnormal levels of other serum enzymes; Z83.3 Family history of diabetes mellitus

== ENCOUNTER 2018-06-28 11:44 | Outpatient (CLI) | payer MEDICARE, OTHER | END 2018-06-28 11:45 | disposition home or self-care (01) | LOC: C.VASC 11:44 ==